=== PATIENT | male | born 1945 | race Caucasian/White ===

== ENCOUNTER 2020-01-27 22:43 | Inpatient (IN) | payer OTHER ==
[~2020-01-27] VITALS: Ht 152.4 cm; Wt 58.0 kg
--- NOTE | ~2020-01-27 | EEG ---
[facility] [place] [address] ELECTROENCEPHALOGRAM Name: SPENCER GALLOWAY Room #: 250-P ADM IN M.R.#: [id number] Admission: 01/28/20 Attend Phys: Breanne Cortez MD Discharge: Date of : 45 Report #: [id number] THIS REPORT FOR: //name// CC: Breanne Cortez [facility] unknown DATE OF SERVICE: 02/23/2020 INTERPRETATION: This patient is being evaluated for altered mental status. EEG was done by placing the electrode by standard 10/20 system of electrode placement. Both referential and sequential montages were used for recording. Background activity in this patient's EEG is about 6-7 Hz and 30 microvolt. This is a poorly formed background activity. Photic stimulation is unremarkable. IMPRESSION: This is an abnormal EEG because it is disorganized and poorly formed. That is a nonspecific abnormality, which can occur with encephalopathy, effect of psychotropic medication, dementia, etc. Clinical correlation is recommended. By: 17 26 Pedro Rizvi MD /nt
--- NOTE | ~2020-01-27 | EKG ---
[facility] [place] [address] ELECTROCARDIOGRAM REPORT Name: LAVERNESPENCER IRA Room #: 244-P ADM IN M.R.#: [id number] Admission: 01/28/20 Attend Phys: Breanne Cortez MD Discharge: Date of : 45 Report #: [id number] THIS REPORT FOR: cc: FAM - Family physician unknown FAM - Family physician unknown Tonya Castaneda MD ~ THIS REPORT FOR: //name// [facility] Test Date: 2020-01-28 Test Time: 16:52:30 Pat Name: SPENCER GALLOWAY Department: Room: 244 P Gender: M Cement Mason: David SILVA : 1945 Requested By: Celestine Serrano Order Number: [id number] MD: Measurements Intervals [place] Rate: 77 P: 52 OR: 155 QRS: 76 QRSD: 151 T: 26 QT: 454 QTc: 514 Interpretive Statements Sinus rhythm Ventricular bigeminy Right bundle branch block Compared to ECG 01/27/2020 23:15:52 Sinus tachycardia no longer present Left posterior fascicular block no longer present [email or web address] By: 165 165 Epiphany Epiphany, [place] /EPI
--- NOTE | ~2020-01-27 | EKG ---
[facility] [place] [address] ELECTROCARDIOGRAM REPORT Name: LAVERNESPENCER IRA Room #: 244-P ADM IN M.R.#: [id number] Admission: 01/28/20 Attend Phys: Breanne Cortez MD Discharge: Date of : 45 Report #: [id number] THIS REPORT FOR: cc: FAM - Family physician unknown FAM - Family physician unknown Tonya Castaneda MD ~ THIS REPORT FOR: //name// [facility] Test Date: 2020-01-28 Test Time: 21:44:38 Pat Name: SPENCER GALLOWAY Department: Room: 244 Gender: M Organizational Development Director: Jose GRIFFIN RN : 1945 Requested By: Yulisa Good Order Number: [id number] MD: Measurements Intervals [place] Rate: 90 P: [place]: QRS: 76 QRSD: 142 T: 39 QT: 414 QTc: 507 Interpretive Statements Atrial fibrillation Paired ventricular premature complexes IVCD, consider atypical RBBB Compared to ECG 01/28/2020 16:52:30 Sinus rhythm no longer present [email or web address] By: 2144 2144 Epiphany Epiphany, /EPI
--- NOTE | ~2020-01-27 | O ---
[facility] [place] [address] OPERATIVE REPORT Name: SPENCER GALLOWAY Room #: 244-P ADM IN M.R.#: [id number] Admission: 01/28/20 Attend Phys: Breanne Cortez MD Discharge: Date of : 45 Report #: [id number] THIS REPORT FOR: cc: SUNSHINE - Family physician unknown SUNSHINE - Family physician unknown Gonsalo Warren MD ~ CC: Breanne GONSALEZ unknown DATE OF SERVICE: 01/28/2020 PREOPERATIVE DIAGNOSIS: Perforated viscus. POSTOPERATIVE DIAGNOSIS: Perforated duodenal ulcer. PROCEDURE: Exploratory laparotomy with omental patch repair of perforated duodenal ulcer. SURGEON: Gonsalo Warren MD ANESTHESIA: General. ESTIMATED BLOOD LOSS: 20 mL. SPECIMEN: None. DESCRIPTION OF PROCEDURE: After informed consent was obtained, the patient was brought to the operating room and placed supine. SCDs were placed and working, preoperative antibiotics were administered, general anesthesia was induced. The abdomen was prepped and draped in the usual sterile fashion. Hansen catheter was placed and this was prior to prepping. Midline incision was made from the xiphoid to the umbilicus. Fascia was incised and a self-retaining Mundelein retractor was placed. There was immediate garcias of brown fluid. This was emanating from the right upper quadrant. This was all suctioned out. I then irrigated the abdomen with about 7 liters of warm normal saline. I inspected the stomach. The stomach appeared normal. In the proximal duodenum, there was perforation. Perforation measured approximately 1 cm. This was undoubtedly the area of perforation. The greater omentum was grasped and a tongue was made using the LigaSure device. I then closed the duodenal ulcer with approximately 8 interrupted 3-0 silk sutures. The edges did approximate well. I then brought the omentum up to the ulceration. It was laid over the suture repair of the ulcer. I then placed sutures circumferentially around the ulceration through the omentum to perform the omentopexy. A 19-Faroese round drain was placed in the area around this. Again, the abdomen was then irrigated. The fascia was then closed with a running #1 looped PDS. The skin [facility] [address] [place] [address] OPERATIVE REPORT Name: LAVERNESPENCER ROTH Room #: 244-P ADM IN [facility].#: [id number] Admission: 01/28/20 Attend Phys: Breanne Cortez MD Discharge: Date of : 45 Report #: [id number] was closed with jett. Sterile dressings were applied. COMPLICATIONS: None. DISPOSITION: The patient was taken to the ICU in guarded condition. By: 0926 0935 Gonsalo Warren MD /nt
[2020-01-27 22:44] VITALS: BP 133/62
[2020-01-27 23:32] LABS: HEMOGLOBIN 6.6 gm/dL (14.0-18.0); MCHC 31.8 g/dL (28.0-37.0)
[2020-01-27 23:33] LABS: HEMATOCRIT 20.7 % (42.0-52.0); MCV 84.8 fL (80.0-100.0); PLATELET COUNT 697 thou/uL (150-400); RBC 2.44 mil/uL (4.50-6.00); RDW 20.1 % (10.5-14.5); WBC 21.1 thou/uL (4.0-11.0)
[2020-01-27 23:36] LABS: URINE BILIRUBIN NEGATIVE (Negative); URINE BLOOD TRACE (Negative); URINE CLARITY SL CLOUDY; URINE COLOR YELLOW; URINE GLUCOSE-RANDOM* TRACE (Negative); URINE KETONES NEGATIVE (Negative); URINE LEUKOCYTES-REFLEX NEGATIVE (Negative); URINE NITRITE-REFLEX NEGATIVE (Negative); URINE PROTEIN (DIPSTICK) 1+ (Negative)
[2020-01-27 23:36] LABS: BE(vivo) -0.6 mmol/L (-2 to +3); PCO2 28.1 mmHg (35.0-45.0); PO2 60.7 mmHg (80.0-100.0); pH 7.511 (7.360-7.450); sO2 93.8 % (92.0-98.0)
[2020-01-27 23:39] LABS: ANION GAP 14 mmol/L (7-16); BUN 44 mg/dL (7-18); CHLORIDE 96 mmol/L (98-107); CO2 22 mmol/L (21-32); CREATININE 1.3 mg/dL (0.7-1.3); GLUCOSE 195 mg/dL (74-106); POTASSIUM 4.6 mmol/L (3.5-5.1); SODIUM 132 mmol/L (136-145)
[2020-01-27 23:44] LABS: APTT 32.4 Seconds (24.5-32.8); INR 1.1; PROTIME 11.3 Seconds (9.3-11.4)
[2020-01-27 23:48] LABS: BACTERIA-REFLEX 1-9 Few /HPF (None Seen); COARSE GRANULAR CASTS 0-3 Few /LPF (None Seen); CRYSTALS None Seen /LPF (None Seen); FINE GRANULAR CASTS 0-3 Few /LPF (None Seen); HYALINE CASTS 4-10 Moderate /LPF (None Seen); MUCUS 4-6 Moderate strn/LPF (None Seen); SQUAMOUS 4-10 Moderate /LPF (0-3); URINE RBC 3-10 Few /HPF (0-2); URINE WBC-REFLEX 0-5 Rare /HPF (0-5)
[2020-01-27 23:49] LABS: ALBUMIN 1.7 g/dL (3.4-5.0); DIRECT BILIRUBIN 0.1 mg/dL (<0.1-0.2); LIPASE 453 U/L (73-393); SGOT 43 U/L (15-37); SGPT 23 U/L (30-65); TOTAL BILIRUBIN 0.7 mg/dL (0.2-1.0); TOTAL PROTEIN 6.2 g/dL (6.4-8.2); TROPONIN-I <0.06 ng/mL (<0.06)
[2020-01-28] VITALS (47 sets, daily range): BP systolic 75–173; BP diastolic 33–90
[2020-01-28 01:46] LABS: ABSOLUTE NEUTROPHILS 17.9 thou/uL (1.4-8.2); ANISOCYTOSIS 2+; NUCLEATED RBCS 5 /100WBC; POIKILOCYTOSIS 1+
[2020-01-28 01:47] LABS: POLYCHROMASIA 1+
[2020-01-28 05:19] LABS: BE(vivo) -7.3 mmol/L (-2 to +3); PCO2 49.1 mmHg (35.0-45.0); PO2 242.2 mmHg (80.0-100.0); sO2 99.4 % (92.0-98.0)
[2020-01-28 05:21] LABS: pH 7.228 (7.360-7.450)
[2020-01-28 06:05] LABS: HEMATOCRIT 25.2 % (42.0-52.0); HEMOGLOBIN 8.1 gm/dL (14.0-18.0); MCHC 32.2 g/dL (28.0-37.0); RBC 2.9 mil/uL (4.50-6.00); RDW 19.4 % (10.5-14.5); WBC 22.9 thou/uL (4.0-11.0)
[2020-01-28 06:23] LABS: % SATURATION 6 % (20-39); IRON 12 ug/dL (65-175); TIBC 189 ug/dL (250-450)
[2020-01-28 06:24] LABS: CHOLESTEROL 67 mg/dL (<200); HDL CHOLESTEROL 14 mg/dL (>40); LDL CHOLESTEROL 33 mg/dL (<100); TC:HDL 4.8 Ratio (Not establshd); TRIGLYCERIDE 102 mg/dL (<150); VLDL 20 mg/dL (<40)
[2020-01-28 06:28] LABS: ALBUMIN 1.4 g/dL (3.4-5.0); CALCIUM 6.5 mg/dL (8.5-10.1); TOTAL BILIRUBIN 0.6 mg/dL (0.2-1.0); TOTAL PROTEIN 5.1 g/dL (6.4-8.2)
[2020-01-28 06:44] LABS: POTASSIUM 3.3 mmol/L (3.5-5.1)
[2020-01-28 06:46] LABS: FOLIC ACID 6.4 ng/mL (8.6-58.9); TSH 2.637 uIU/mL (0.358-3.740)
--- NOTE | 2020-01-28 07:45 | EKG ---
[facility] Adrianna Pat[address] [facility] [place] [address] ELECTROCARDIOGRAM REPORT Name: LAVERNESPENCER ROTH Room #: 244-P ADM IN M.R.#: [id number] Admission: 01/28/20 Attend Phys: Breanne Cortez MD Discharge: Date of : 45 Report #: [id number] THIS REPORT FOR: cc: FAM - Family physician unknown FAM - Family physician unknown Senthil Espinosa MD [facility] ~ THIS REPORT FOR: //name// [facility] ED Test Date: 2020-01-27 Test Time: 23:15:52 Pat Name: SPENCER GALLOWAY Department: Room: [facility] Gender: M Dental Treatment Coordinator: ASHLEY : 1945 Requested By: Elliott Mejia Order Number: [id number] MD: Senthil Espinosa Measurements Intervals [place] Rate: 106 P: 74 MD: 135 QRS: 95 QRSD: 156 T: 22 QT: 407 QTc: 541 Interpretive Statements Sinus tachycardia Multiform ventricular premature complexes RBBB and LPFB Baseline wander in lead(s) I,III,aVL No previous ECG available for comparison Electronically Signed On 01-28-2020 7:44:48 CDT by Senthil Espinosa [email or web address] <ELECTRONICALLY SIGNED> By: Senthil Espinosa MD, [facility] 01/28/20 0744 2315 2315 Senthil Espinosa MD, [facility] /EPI
--- NOTE | 2020-01-28 12:25 | NUR ---
P.T. EVAL DEFERRED ORDER WAS RECEIVED PRIOR TO SURGERY AND INTUBATION. REQUEST NEW POST OP P.T. ORDER ONCE PT IS MEDICALLY STABLE AND ABLE TO PARTICIPARE IN THERAPEUTIC ACTIVITIES.
[2020-01-28 13:12] LABS: HEMATOCRIT 22.7 % (42.0-52.0); HEMOGLOBIN 7.4 gm/dL (14.0-18.0)
--- NOTE | 2020-01-28 14:24 | NUR ---
chart review. am rounds today. unable to visit with him rt intubation. noted per chart he lives alone, had wt loss in past. GI consulted. will cont following as needed for dc needs.
[2020-01-28 17:08] LABS: BE(vivo) -10.2 mmol/L (-2 to +3); HCO3 14.9 mmol/L (22.0-26.0); PCO2 29.7 mmHg (35.0-45.0); PO2 109.7 mmHg (80.0-100.0); pH 7.318 (7.360-7.450); sO2 97.7 % (92.0-98.0)
[2020-01-28 17:22] LABS: ANION GAP 14 mmol/L (7-16); BUN 29 mg/dL (7-18); CHLORIDE 112 mmol/L (98-107); CO2 16 mmol/L (21-32); CREATININE 0.8 mg/dL (0.7-1.3); GLUCOSE 133 mg/dL (74-106); MAGNESIUM 1.6 mg/dL (1.8-2.4); POTASSIUM 3.6 mmol/L (3.5-5.1); SODIUM 142 mmol/L (136-145); TROPONIN-I <0.06 ng/mL (<0.06)
[2020-01-28 17:24] LABS: CALCIUM 5.9 mg/dL (8.5-10.1)
[2020-01-28 20:41] LABS: HEMATOCRIT 20.7 % (42.0-52.0); HEMOGLOBIN 6.7 gm/dL (14.0-18.0)
--- NOTE | 2020-01-28 20:44 | NUR ---
ASSUMED CARE AT 0700. SON VISITED IN THE MORNING AND HE AND THE PATIENT WERE UPDATED AND EDUCATED ON THE PLAN OF CARE AND PATIENT CONDITION. ADEQUATE UOP. NO BM. RIGHT RADIAL ARTERIAL LINE DC'D DUE TO CYANOSIS IN FIRST AND SECOND FINGERS ON RIGHT HAND. HEMOSTASIS OBTAINED. PRESSURE DRESSING APPLIED. SEPSIS PROTOCOL INITIATED. ELECTROLYTES REPLACED PER [facility] PROTOCOL. CARDIOLOGY CONSULTED DUE TO BRADYCARDIA. LEVOPHED, VASOPRESSIN, DOPAMINE TITRATED TO ACHIEVE A MAP>60. TEMPERATURE MAX OF 100.4. VENTILATOR SETTINGS UNCHANGED. PATIENT HAD PALPABLE ULNAR PULSE THROUGHOUT THE DAY ON THE RIGHT SIDE. IRASEMA DRAIN IN PLACE W/SEROSANGUINEOUS DRAINAGE. FIRM ABDOMEN WITH HYPOACTIVE BS. EKG OBTAINED WHICH SHOWED BUNDLE BRANCH BLOCK AND VENTRICULAR BIGEMINY. SURGICAL DRESSING FROM [employer], DRY, INTACT. PATIENT SLOWLY PROGRESSING TOWARDS THE PLAN OF CARE.
[2020-01-28 20:48] LABS: POTASSIUM 3.7 mmol/L (3.5-5.1)
--- NOTE | 2020-01-28 23:59 | NUR ---
ASSUMED CARE OF PATIENT AT 1900. PATIENT CALM, GRIMACES IN PAIN. HEART RYHTHM EXTREMELY IRREGULAR, MOTORIZED SQUAD SERGEANT NOTIFIED. EKG OBTAINED. IN A FIB WITH RATES IN THE 70'S. PATIENT ALSO FEBRILE, ORDER OBTAINED FOR TYLENOL. GIVEN WITH GOOD RESULTS. HEMOGLOBIN RESULTS CALLED TO MOTORIZED SQUAD SERGEANT, ORDER OBTAINED FOR 1 UNIT OF PRBC. INFUSING AT THIS TIME. PATIENTS SON CALLED, UPDATED ON PLAN OF CARE. CONFIRMED THAT PATIENT HAS NOT SEEN A DR SINCE THE . HE WAS DIAGNOSED WITH STOMACH ULCERS THEN. STATES PATIENT TAKES ASPIRIN AND TUMS FOR HEART BURN. BP GTT TITRATED CHARTED. WILL RECHECK LABS IN AM. WORKING TOWARDS POC GOALS.
[2020-01-29] VITALS (77 sets, daily range): BP systolic 85–190; BP diastolic 35–83
[2020-01-29 01:06] LABS: GLYCOHEMOGLOBIN (HGB A1C) 5.6 % (4.8-5.6)
[2020-01-29 02:25] LABS: HEMATOCRIT 26.7 % (42.0-52.0); HEMOGLOBIN 8.4 gm/dL (14.0-18.0); MCH 27.8 pg (26.0-34.0); MCHC 31.6 g/dL (28.0-37.0); MCV 88.1 fL (80.0-100.0); RBC 3.03 mil/uL (4.50-6.00); RDW 18.9 % (10.5-14.5); WBC 28.5 thou/uL (4.0-11.0)
[2020-01-29 02:33] LABS: ALBUMIN 1.2 g/dL (3.4-5.0); CALCIUM 6.5 mg/dL (8.5-10.1); POTASSIUM 3.7 mmol/L (3.5-5.1); TOTAL BILIRUBIN 0.4 mg/dL (0.2-1.0); TOTAL PROTEIN 5.5 g/dL (6.4-8.2)
[2020-01-29 05:13] LABS: BE(vivo) -10.1 mmol/L (-2 to +3); HCO3 14.8 mmol/L (22.0-26.0); PCO2 29.4 mmHg (35.0-45.0); PO2 122.2 mmHg (80.0-100.0); pH 7.321 (7.360-7.450); sO2 98.2 % (92.0-98.0)
--- NOTE | 2020-01-29 08:49 | NUR ---
ASSUMED CARE AT 0700, ASSESSMENT AND VITAL SIGNS COMPLETED PER ICU PROTOCOL. RN WILL CONINTUE TO MONITOR.
[2020-01-30] VITALS (49 sets, daily range): BP systolic 90–134; BP diastolic 46–74
--- NOTE | 2020-01-30 02:38 | NUR ---
ASSUMED CARE OF PATIENT AT 1900. WEANED OFF DOPAMINE. HEART RATE CONTINUES TO FLUCTUATE INCONSISTENTLY, DROPPING TO THE LOW 40'S THEN REBOUNDING TO THE 70'S AND 80'S. BP REMAINS STABLE. LEVO STILL INFUSING PER FLOW SHEET. WORKING TOWARDS POC GOALS.
[2020-01-30 03:44] LABS: HEMATOCRIT 22.7 % (42.0-52.0); HEMOGLOBIN 7.2 gm/dL (14.0-18.0); MCHC 31.8 g/dL (28.0-37.0); MCV 88.3 fL (80.0-100.0); RBC 2.57 mil/uL (4.50-6.00); RDW 20.1 % (10.5-14.5); WBC 19.7 thou/uL (4.0-11.0)
[2020-01-30 03:47] LABS: CALCIUM 6.7 mg/dL (8.5-10.1); CREATININE 0.8 mg/dL (0.7-1.3); POTASSIUM 4.2 mmol/L (3.5-5.1)
--- NOTE | 2020-01-30 07:51 | HC ---
[facility] [place] [address] CONSULTATION Name: SPENCER GALLOWAY Room #: 244-P ADM IN M.R.#: [id number] Admission: 01/28/20 Attend Phys: Breanne Cortez MD Discharge: Date of : 45 Report #: [id number] THIS REPORT FOR: cc: SUNSHINE - Family physician unknown FAM - Family physician unknown Reed Reid MD ~ CC: Breanne GONSALEZ unknown DATE OF SERVICE: 01/29/2020 CARDIOLOGY CONSULTATION INDICATION: Bradycardia. HISTORY OF PRESENT ILLNESS: This 75-year-old gentleman with apparent history of COPD, who presented with several weeks duration of progressive weakness and more recently with abdominal pain. He also had nausea and dyspnea. Initial evaluation in the ER revealed a perforated duodenal ulcer and was taken emergently to the OR. He underwent exploratory laparotomy with patch repair of a perforated duodenal ulcer. He was transferred to the ICU with progressive hypotension secondary to septic shock. He was placed on Levophed and vasopressin. During his transition, he was noted to be bradycardic with heart rates in the 30s to 40 beats per minute range. Review of the telemetry strips revealed initial presentation of probable ventricular bigeminy with low heart rates. The patient was started on dopamine with improvement in his heart rate. Presently, intubated and sedated with a decrease in his pressor support. PAST MEDICAL HISTORY: Unknown. He has not seen a physician in many years ALLERGIES: Unknown. MEDICATIONS: None. SOCIAL HISTORY: Apparently nonsmoker. FAMILY HISTORY: Unobtainable. REVIEW OF SYSTEMS: Unobtainable. PHYSICAL EXAMINATION: VITAL SIGNS: Blood pressure is 130/60, heart rate is 70 beats per minute. GENERAL APPEARANCE: This is an elderly appearing male, intubated and sedated. HEENT: Normocephalic. NECK: Supple. LUNGS: Clear to auscultation. [facility] [address] [place] [address] CONSULTATION Name: HERMINIAMARIA LUISASPENCER IRA Room #: 244-P [facility] IN [facility]#: [id number] Admission: 01/28/20 Attend Phys: Breanne Cortez MD Discharge: Date of : 45 Report #: [id number] CARDIAC: Regular rate and rhythm, S1, S2 positive. ABDOMEN: Soft. Drains in place. EXTREMITIES: No edema, no cyanosis. ECG reveals sinus rhythm with bigeminy, low voltage, right bundle branch block pattern. LABORATORY VALUES: White count is 28.5, hemoglobin is 8.4, creatinine is 1.0. Initial troponin is negative. ASSESSMENT AND PLAN: 1. Bradycardia, attributed to sepsis/peritonitis. Improved with dopamine, we will attempt to wean off. 2. Premature ventricular contractions/ventricular bigeminy, will need an ischemic evaluation once his clinical condition improves. Await echo findings. 2. Septic shock/peritonitis, continue with antibiotics and fluids. His hemodynamics appears to have stabilized as vasopressin was discontinued and he is on the lower dose of Levophed. Check cultures. 3. Chronic obstructive pulmonary disease/vent, as per Pulmonary. <ELECTRONICALLY SIGNED> By: Reed Reid MD 01/30/20 0751 0920 1137 Reed Reid MD /nt
--- NOTE | 2020-01-30 10:00 | NUR ---
ASSUMED CARE AT 0700, ASSESSMENT AND VITAL SIGNS COMPLETED PER ICU PROTOCOL. DR. GONZALES ROUNDED THIS AM, PLAN OF CARE DISCUSSED. RN WILL CONTINUE TO MONITOR.
[2020-01-30 11:46] LABS: BE(vivo) -11.4 mmol/L (-2 to +3); HCO3 13.1 mmol/L (22.0-26.0); PO2 104.9 mmHg (80.0-100.0); sO2 97.6 % (92.0-98.0)
[2020-01-30 11:47] LABS: PCO2 24.9 mmHg (35.0-45.0)
[2020-01-31] VITALS (49 sets, daily range): BP systolic 84–121; BP diastolic 39–75
[2020-01-31 04:49] LABS: HEMATOCRIT 23.7 % (42.0-52.0); HEMOGLOBIN 7.2 gm/dL (14.0-18.0); MCH 27.1 pg (26.0-34.0); MCHC 30.6 g/dL (28.0-37.0); MCV 88.8 fL (80.0-100.0); RBC 2.67 mil/uL (4.50-6.00); RDW 20.7 % (10.5-14.5); WBC 18.4 thou/uL (4.0-11.0)
[2020-01-31 04:56] LABS: CALCIUM 6.9 mg/dL (8.5-10.1); CREATININE 0.7 mg/dL (0.7-1.3); POTASSIUM 4.4 mmol/L (3.5-5.1)
--- NOTE | 2020-01-31 10:41 | 2DMMODE ---
[facility] [address] [place] [address] 2 D/M-MODE ECHOCARDIOGRAM Name: SPENCER GALLOWAY Room #: 244-P ADM IN M.R.#: [id number] Admission: 01/28/20 Attend Phys: Breanne Cortez MD Discharge: Date of : 45 Report #: [id number] THIS REPORT FOR: cc: FAM - Family physician unknown FAM - Family physician unknown Reed Reid MD ~ APPROVED REPORT Study performed: 01/31/2020 08:18:01 EXAM: Comprehensive 2D, Doppler, and color-flow Echocardiogram Patient Location: ICU Room #: [facility] Status: routine BSA: 1.63 HR: 57 bpm BP: 106/62 mmHg Other Information Study Quality: Technically Difficult Technically limited study due to lung disease, patient on ventilator. Indications COPD PVCs 2D Dimensions RVDd: 34.13 mm IVSd: 9.46 (7-11mm) LVOT Diam: 20.04 (18-24mm) LVDd: 46.38 mm PWd: 10.68 (7-11mm) LVDs: 33.55 (25-40mm) Aortic Root: 32.85 mm IVC: 21.00 mm Volumes Left Atrial Volume (Systole) Single Plane 4CH: 26.75 mL Single Plane 2CH: 31.30 mL LA ESV Index: 21.00 mL/m2 Aortic Valve AoV Peak Eagle.: 1.62 m/s AO Peak Gr.: 10.43 mmHg LVOT Max P.45 mmHg LVOT Max V: 0.78 m/s [facility] [address] [place] [address] 2 D/M-MODE ECHOCARDIOGRAM Name: SPENCER GALLOWAY Room #: 244-P ADM IN M.R.#: [id number] Admission: 01/28/20 Attend Phys: Wai Frias Discharge: Date of : 45 Report #: [id number] COLIN Vmax: 1.53 cm2 Mitral Valve E/A Ratio: 0.9 MV Decel. Time: 199.25 ms MV E Max Eagle.: 0.70 m/s MV A Eagle.: 0.77 m/s MV PHT: 57.78 ms IVRT: 114.19 ms Pulmonary Valve PV Peak Eagle.: 0.99 m/s PV Peak Gr.: 3.95 mmHg Tricuspid Valve RAP Estimate: 10.00 mmHg Left Ventricle The left ventricle is normal size. There is normal left ventricular wall thickness. The left ventricular systolic function is low-normal. LVEF is 50-55%. Transmitral Doppler flow pattern suggests mild impaired LV relaxation. Right Ventricle The right ventricle is normal size. The right ventricular systolic function is normal. Atria The left atrium size is normal. The right atrium size is normal. Aortic Valve Mild aortic valve sclerosis. Trace aortic regurgitation. There is no aortic valvular stenosis. Mitral Valve Mild mitral annular calcification. There is no mitral valve regurgitation noted. No evidence of mitral valve stenosis. Tricuspid Valve The tricuspid valve is normal in structure. Trace tricuspid regurgitation. Unable to assess PA pressure. Pulmonic Valve Pulmonic valve is grossly normal in structure. There is no pulmonic valvular regurgitation. [facility] [address] [place] [address] 2 D/M-MODE ECHOCARDIOGRAM Name: SPENCER GALLOWAY Room #: 244-P [facility] IN [facility].#: [id number] Admission: 01/28/20 Attend Phys: Wai Frias Discharge: Date of : 45 Report #: [id number] Great Vessels The aortic root is normal in size. IVC is upper limits of normal in size and collapses <50% with inspiration. Pericardium There is no pericardial effusion. <Conclusion> The left ventricle is normal size. There is normal left ventricular wall thickness. The left ventricular systolic function is low-normal. The right ventricle is normal size. The left atrium size is normal. Mild aortic valve sclerosis. Mild mitral annular calcification. Trace tricuspid regurgitation. <ELECTRONICALLY SIGNED> By: Reed Reid MD 01/31/20 1040 1040 1040 Reed Reid MD /INF
[2020-01-31 11:52] LABS: URINE CHLORIDE-RANDOM* 52 mmol/L; URINE SODIUM-RANDOM* 6 mmol/L
[2020-01-31 11:53] LABS: URINE CREATININE-RANDOM* <13 mg/dL
--- NOTE | 2020-01-31 13:02 | NUR ---
1010 CPAP TRIAL INTIATED. PROPOFOL TURNED OFF 15 MIN PRIOR TO CPAP TRIAL. PT TOLERATING WELL. AT 1045 DR CASE ROUNDED AND STATES THAT DUE TO METABOLIC ACIDOSIS HE DOES NOT WANT TO EXTUBATE PT TODAY AND REQUESTS TO RETURN TO PRIOR AC VENT SETTINGS AND RESTART PROPOFOL. URINE STUDIES SENT ORDERED. RT ATTEMPTED TO DRAW ABG'S ORDERED BUT UNSUCESSFUL AFTER MULTIPLE STICKS. VERY WEAK PULSES. 0930 LEVOPHED WEANED OFF. MAP REMAINS >65. WILL CONTINUE TO MONITOR PATIENT.
[2020-01-31 14:04] LABS: BE(vivo) -10.3 mmol/L (-2 to +3); HCO3 13.5 mmol/L (22.0-26.0); PO2 145.7 mmHg (80.0-100.0); sO2 98.9 % (92.0-98.0)
[2020-01-31 14:05] LABS: PCO2 22.8 mmHg (35.0-45.0)
--- NOTE | 2020-01-31 14:58 | NUR ---
chart review, unable to visit with carrie castillo preserving ppe, on vent in icu. weaning trials. tube feed for nutritional support. patsy spoke with son jerica who wanted cm to pass on that he will be here around 9ish to visit and he is praying for him. cm passed on information to beside nurse.
[2020-02-01] VITALS (49 sets, daily range): BP systolic 80–132; BP diastolic 45–81
[2020-02-01 03:48] LABS: HEMATOCRIT 22.9 % (42.0-52.0); HEMOGLOBIN 7.2 gm/dL (14.0-18.0); MCHC 31.4 g/dL (28.0-37.0); RBC 2.58 mil/uL (4.50-6.00); RDW 20.8 % (10.5-14.5); WBC 17.7 thou/uL (4.0-11.0)
[2020-02-01 04:06] LABS: ALBUMIN 0.8 g/dL (3.4-5.0); CALCIUM 6.6 mg/dL (8.5-10.1); CREATININE 0.9 mg/dL (0.7-1.3); MAGNESIUM 1.7 mg/dL (1.8-2.4); PHOSPHORUS 1.8 mg/dL (2.5-4.9); POTASSIUM 4.5 mmol/L (3.5-5.1); TOTAL BILIRUBIN 0.3 mg/dL (0.2-1.0); TOTAL PROTEIN 5.1 g/dL (6.4-8.2)
--- NOTE | 2020-02-01 06:04 | NUR ---
ASSUMED CARE OF PATIENT AT 1900. VSS, AFEBRILE. RESTED THROUGHT THE NIGHT. EXTREMELY EDEMATOUS THROUGHOUT BODY, SIGNNIFICANT WEIGHT GAIN CHARTED. ELECTROLYTES REPLACED PER PROTOCOL. SON CALLED, THIS RN UPDATED. VERBALIZED UNDERSTANDING. WORKING TOWARDS POC GOALS.
[2020-02-01 06:05] LABS: BE(vivo) -7.9 mmol/L (-2 to +3); HCO3 15.6 mmol/L (22.0-26.0); PCO2 26.4 mmHg (35.0-45.0); PO2 129.2 mmHg (80.0-100.0); pH 7.389 (7.360-7.450); sO2 98.6 % (92.0-98.0)
--- NOTE | 2020-02-01 11:27 | NUR ---
1100 - PATIENT'S SON VISITED THE PATIENT AND HE AND THE PATIENT WERE UPDATED AND EDUCATED ON THE PATIENT'S CONDITION AND PLAN OF CARE.
--- NOTE | 2020-02-01 19:16 | NUR ---
ASSUMED CARE AT 0700. PATIENT STARTED ON LEVOPHED. AFEBRILE. NO BM. ADEQUATE UOP. VENTILATOR SETTINGS UNCHANGED. FENTANYL AND PROPOFOL GTT IN PLACE. TPN STARTED WHICH PATIENT TOLERATED WELL. IRASEMA DRAIN IN PLACE WITH NO OUTPUT TODAY. NG IN PLACE TO LIS.
[2020-02-02] VITALS (18 sets, daily range): BP systolic 93–133; BP diastolic 51–88
--- NOTE | 2020-02-02 04:24 | NUR ---
PATIENT TURNING HEAD AND MOVING BOTH HANDS DURING SEDATION VACATION.AFEBRILE, BELLY FIRM, NG TO LIS.MAC IN PLACE AND PATENT, FMS IN WORKING ORDERS AND FREE FORM KINKS. BLADDER SCAN DONE D/T FIRMNESS. 309 ML SCANNED, IRRIGATED WITH 60ML NS AND FLUSHED WITH NO DIFFICULTY. 500ML URINE OUT PUT RECORDED OVER NIGHT
--- NOTE | 2020-02-02 06:26 | NUR ---
PT SLEPT WELL. DENIES PAIN OR DISCOMFORT. VSS, AFIBRILE. NEW 20 GAUGE PIV PLACED DANA. D10 @50ML/HR INFUSING. 1/2 AMP D50%W GIVEN X1 TO KEEP BG>70. TYPE AND CROSS DONE THIS AM.
[2020-02-02 06:33] LABS: HEMATOCRIT 22.6 % (42.0-52.0); HEMOGLOBIN 7.3 gm/dL (14.0-18.0); MCH 28.2 pg (26.0-34.0); MCHC 32.2 g/dL (28.0-37.0); MCV 87.6 fL (80.0-100.0); RBC 2.58 mil/uL (4.50-6.00); RDW 21.2 % (10.5-14.5); WBC 17.1 thou/uL (4.0-11.0)
[2020-02-02 06:48] LABS: CALCIUM 6.8 mg/dL (8.5-10.1); CREATININE 0.7 mg/dL (0.7-1.3); MAGNESIUM 1.8 mg/dL (1.8-2.4); PHOSPHORUS 2.5 mg/dL (2.5-4.9); POTASSIUM 4.2 mmol/L (3.5-5.1)
--- NOTE | 2020-02-02 13:02 | NUR ---
0830 SON OLIVIA AT BEDSIDE, UPDATED ON PLAN FOR TODAY, REPORTED PT PROBABLY WOULD NOT BE TRIALED TODAY D/T COPIOUS SECRETIONS, NOT TOLERATING SEDATION VACATIONS, AND STILL IN SEPTIC PROCESS. SON ACKNOWLEDGED UNDERSTANDING SITUATION, ALL QUESTIONS ANSWERED. 1000 DR CASE AT BEDSIDE, PT WILL NOT TRIAL TODAY. 1030 DR FLOWER AT BEDSIDE, NEW ORDERS FOR FLUIDS AND TPN
[2020-02-03] VITALS (64 sets, daily range): BP systolic 79–150; BP diastolic 44–74
--- NOTE | 2020-02-03 03:25 | NUR ---
PT CONTINUES TO REQUIRE RESTRAINTS FOR INABILITY TO UNDERSTAND NEED FOR TREATMENT, ETT, MULTIPLE TUBES AND LINES. CIRCULATION AND SKIN ASSESSED & INTACT. BUE ROM DONE, INCONTINENCE CARE COMPLETED.VSS, TEMP 99.2, LEVO INCREASED TO MAINTAIN MAP>65. SON- OLIVAI CALLED. UPDATED ON PATIENT'S CONDITION/SITUATION, MEDS, AND QUESTIONS ANSWERED. OLIVIA VOICES UNDERSTANDING.
[2020-02-03 04:57] LABS: HEMATOCRIT 22.2 % (42.0-52.0); HEMOGLOBIN 7.1 gm/dL (14.0-18.0); MCH 27.8 pg (26.0-34.0); MCHC 31.9 g/dL (28.0-37.0); MCV 87.4 fL (80.0-100.0); RBC 2.55 mil/uL (4.50-6.00); RDW 21.1 % (10.5-14.5); WBC 16.6 thou/uL (4.0-11.0)
[2020-02-03 05:04] LABS: CALCIUM 6.7 mg/dL (8.5-10.1); CREATININE 0.8 mg/dL (0.7-1.3); MAGNESIUM 1.5 mg/dL (1.8-2.4); PHOSPHORUS 3.2 mg/dL (2.5-4.9)
[2020-02-03 05:15] LABS: POTASSIUM 5.3 mmol/L (3.5-5.1)
--- NOTE | 2020-02-03 06:21 | NUR ---
LARGE AMOUNT CLEAR LIQIUD OOZING FROM PATIENT'S HEMORRIODS.SOAKED PADS CHANGED X4. LOOSE STOOLS X4. ABDOMEN FIRM, NG TO LIS-100ML OUTPUT NOTED OVERNIGHT.NO OUT-PUT FROM IRASEMA DRAIN.
--- NOTE | 2020-02-03 11:45 | NUR ---
ASSUMED CARE @ 0700 02/03/20, PT ASSESSMENTS AND VSS COMPLETE PER ICU PROTOCOL. DR FLOWER @ BEDSIDE @ 1015, UPDATE GIVEN, NO NEW ORDERS AT THIS TIME. DR CASE @ BEDSIDE @ 1050, STATUS OVERNIGHT GIVEN BY RN, NO NEW ORDERS RECEIEVED AT THIS TIME. BROOKLYN BAKER AT THE BEDSIDE @ 1140.
--- NOTE | 2020-02-03 21:00 | NUR ---
SV FOR 15 MINUTES, PATIENT DOES NOT FOLLOW COMMANDS, OPENS EYES BUT DOES NOT APPEAR TO TRACK, MOVES HEAD BACK AND FORTH CONTINUOUSLY UNTIL SEDATION TURNED BACK ON
[2020-02-04] VITALS (94 sets, daily range): BP systolic 79–152; BP diastolic 40–87
[2020-02-04 05:31] LABS: HEMATOCRIT 22.4 % (42.0-52.0); HEMOGLOBIN 7.3 gm/dL (14.0-18.0); MCH 28.2 pg (26.0-34.0); MCHC 32.4 g/dL (28.0-37.0); RBC 2.58 mil/uL (4.50-6.00); RDW 20.9 % (10.5-14.5); WBC 17.7 thou/uL (4.0-11.0)
[2020-02-04 05:49] LABS: CALCIUM 6.8 mg/dL (8.5-10.1); CREATININE 0.7 mg/dL (0.7-1.3); MAGNESIUM 1.4 mg/dL (1.8-2.4); POTASSIUM 3.3 mmol/L (3.5-5.1)
--- NOTE | 2020-02-04 07:52 | NUR ---
ASSUMED CARE FROM NIGHT NURSE. KCL INFUSING FOR SERUM K OF 3.3, MAG SULFATE HUNG FOR SERUM MAG OF 1.4.
--- NOTE | 2020-02-04 09:17 | NUR ---
If GI tract ready to use, consider vital AF 1.2 at 15ml/hr trophic feeds. Goal would be 50ml/hr if off tpn and no further electrolyte abnormalities.
--- NOTE | 2020-02-04 09:43 | NUR ---
30 MIN SEDATION VACATION. MOVES HEAD FROM SIDE TO SIDE, WILL NOT FOLLOW ANY COMMANDS. HEART RATE INITALLY 70'S INCREASED TO 97. BP ELEVATED TO 152/87 RESP RATE IN THE UPPER 20'S AND SAT WAS 98% FROM 100%.
[2020-02-04 11:43] LABS: MAGNESIUM 1.7 mg/dL (1.8-2.4); POTASSIUM 3.2 mmol/L (3.5-5.1)
--- NOTE | 2020-02-04 13:36 | NUR ---
PATIENT IS RESTING QUIETLY, SON IN AT 1030 THIS AM, UPDATED ON HIS DAD'S STATUS AND POC. PATIENT IS DIURSING 1000 ML AFTER LASIX GIVEN. REPEAT POTASSIUM AND MAG LEVELS DRAWN AFTER BOLUSES, DRIPS HUNG LEVELS REMAIN LOW. PROPOFOL AND LEVOPHED TITRATED TO KEEP MAP GREATER THAN 65 MMHG AFTER LASIX. WILL CONTINUE TO MONITOR.
--- NOTE | 2020-02-04 15:18 | NUR ---
chart review. remains intubated and tpn for nutritional support. spoke with son jerica, no question or concerns voice. will cont following as needed for dc needs.
--- NOTE | 2020-02-04 20:30 | NUR ---
SEDATION VACATION FOR 10 MINUTES, PATIENT DOES NOT FOLLOW COMMANDS, DOES NOT BLINK WHEN STIMULI INTRODUCED TO EYES, WITHDRAWS TO PAIN, MOVES HEAD BACK AND FORTH WHILE SEDATION OFF. DOES GRIMACE WITH ORAL CARES WITH SEDATION INFUSING
[2020-02-05] VITALS (93 sets, daily range): BP systolic 82–156; BP diastolic 47–79
[2020-02-05 09:09] LABS: CALCIUM 7.2 mg/dL (8.5-10.1); CREATININE 0.6 mg/dL (0.7-1.3); MAGNESIUM 1.7 mg/dL (1.8-2.4); PHOSPHORUS 2.8 mg/dL (2.5-4.9); POTASSIUM 3.4 mmol/L (3.5-5.1)
--- NOTE | 2020-02-05 09:43 | NUR ---
ASSUMED CARE AT 0700, ASSESSMENT AND VITAL SIGNS COMPLETED PER ICU PROTOCOL. DR. FLOWER ROUNDED THIS AM, PLAN OF CARE DISCUSSED, RN WILL CONTINUE TO MONITOR.
--- NOTE | 2020-02-05 19:07 | NUR ---
RECEIVED PATIENT REPORT FROM CORNELIUS HORTA. ASSUMED PATIENT CARE AT THIS TIME.
[2020-02-06] VITALS (83 sets, daily range): BP systolic 91–157; BP diastolic 47–89
[2020-02-06 04:16] LABS: HEMATOCRIT 21.7 % (42.0-52.0); HEMOGLOBIN 7.3 gm/dL (14.0-18.0); MCH 28.8 pg (26.0-34.0); MCHC 33.7 g/dL (28.0-37.0); MCV 85.5 fL (80.0-100.0); RBC 2.54 mil/uL (4.50-6.00); RDW 20.4 % (10.5-14.5); WBC 16.8 thou/uL (4.0-11.0)
[2020-02-06 05:22] LABS: CALCIUM 7.3 mg/dL (8.5-10.1); CREATININE 0.6 mg/dL (0.7-1.3); POTASSIUM 3.2 mmol/L (3.5-5.1)
--- NOTE | 2020-02-06 09:15 | NUR ---
Assumed care at 0700, assessment and vital signs completed per ICU protocol. RN will continue to monitor.
[2020-02-06 09:58] LABS: MAGNESIUM 1.7 mg/dL (1.8-2.4); PHOSPHORUS 3.3 mg/dL (2.5-4.9)
[2020-02-07] VITALS (89 sets, daily range): BP systolic 81–198; BP diastolic 43–103
[2020-02-07 03:04] LABS: HEMOGLOBIN 6.9 gm/dL (14.0-18.0); RBC 2.51 mil/uL (4.50-6.00)
[2020-02-07 03:05] LABS: HEMATOCRIT 21.5 % (42.0-52.0); MCH 27.4 pg (26.0-34.0); MCV 85.7 fL (80.0-100.0); RDW 20.4 % (10.5-14.5); WBC 13.2 thou/uL (4.0-11.0)
[2020-02-07 03:21] LABS: CALCIUM 7.6 mg/dL (8.5-10.1); CREATININE 0.6 mg/dL (0.7-1.3); POTASSIUM 3.2 mmol/L (3.5-5.1)
--- NOTE | 2020-02-07 05:38 | NUR ---
Assessments completed and documented. VSS, TEMP 99.1 oral.Abdomen firm, NG to LIS- 225ML output noted overnoc. No drainage from IRASEMA, No BM. 1300ml urine output. Pt is still on low dose Levo and sedated. Andrea- son called. Was updated on patient's plan of care, situations and meds. Questions answered, he palns to visit pt this AM.
--- NOTE | 2020-02-07 07:56 | NUR ---
Sedation vacation early this morning, pt opens eyes, moving head right to left, moving all ext. but noted to be restless/agitated. Nodding yes to all questions and at risk for dislodging tubings d/t back and forth head movement. Currently sedated. Still on both Propofol and Precedex. Family called- updated on patient's condition, medications, and plan to D/C pt to LTACH. Questions answered and education about LTACHs given. Brother's and daughter voices understanding.
--- NOTE | 2020-02-07 10:00 | NUR ---
SEDATION VACATION PERFORMED FOR 1 HR, NOT TOLERATED. BP UP TO 180'S/100, RR-30, THRASHING HEAD BACK AND FORTH, SPONTANEOUSLY OPENING EYES, NO TRACKING, SPONTANEOUSLY MOVING SHILPA HANDS. TITRATING, RESTARTING SEDATION FOR PT COMFORT. HG 6.9. PRBC STARTED. LARGE AMOUNT URINE OUTPUT, REPLACING POTASSIUM PER ELECTROLYTE PROTOCOL.
[2020-02-07 10:35] LABS: BE(vivo) 2.6 mmol/L (-2 to +3); HCO3 25.4 mmol/L (22.0-26.0); PCO2 32.3 mmHg (35.0-45.0); PO2 84.4 mmHg (80.0-100.0); pH 7.513 (7.360-7.450); sO2 97.3 % (92.0-98.0)
--- NOTE | 2020-02-07 14:09 | NUR ---
chart review, pt remains on vent with tpn for nutritional support. he from home. cm tried calling son jerica, no answer, left message request a call back. dcp depends on if he gets a trach and peg then LTAC vs if he get extubated then possible acute rehab vs hh depending how he does mobility and if has sig increased weakness.
[2020-02-07 23:27] LABS: CALCIUM 7.5 mg/dL (8.5-10.1); CREATININE 0.6 mg/dL (0.7-1.3); MAGNESIUM 1.7 mg/dL (1.8-2.4); PHOSPHORUS 2.9 mg/dL (2.5-4.9); POTASSIUM 3.4 mmol/L (3.5-5.1)
[2020-02-08] VITALS (76 sets, daily range): BP systolic 96–156; BP diastolic 53–87
--- NOTE | 2020-02-08 06:42 | NUR ---
ASSESSMENTS COMPLETED. VSS ON LOW DOSE LEVOPHED, AFEBRILE. RECEIVED 1 UNIT PRBC FOR HGB 6.9. POTASSIUM REPLACED, TPN INCREASED TO 50ML/HR. 250ML OUT FROM NG, ZERO FROM IRASEMA DRAIN. 1450 URINE OUTPUT. NO CHANGE TO VENT SETTINGS
[2020-02-08 12:50] LABS: HEMATOCRIT 25.8 % (42.0-52.0); HEMOGLOBIN 8.3 gm/dL (14.0-18.0); MCH 27.7 pg (26.0-34.0); MCV 86.8 fL (80.0-100.0); RBC 2.98 mil/uL (4.50-6.00); RDW 19.2 % (10.5-14.5); WBC 12.7 thou/uL (4.0-11.0)
[2020-02-08 13:04] LABS: CALCIUM 7.5 mg/dL (8.5-10.1); CREATININE 0.6 mg/dL (0.7-1.3); MAGNESIUM 1.8 mg/dL (1.8-2.4)
[2020-02-08 13:05] LABS: BE(vivo) 3.3 mmol/L (-2 to +3); HCO3 26.9 mmol/L (22.0-26.0); PCO2 36.9 mmHg (35.0-45.0); PO2 74.1 mmHg (80.0-100.0); sO2 95.9 % (92.0-98.0)
--- NOTE | 2020-02-08 19:45 | NUR ---
CPAP TRIAL FOR 1 HOUR TODAY. STILL NOT FOLLOWING COMMANDS. SON OLIVIA AT PATIENT BEDSIDE TODAY.
[2020-02-09] VITALS (103 sets, daily range): BP systolic 74–171; BP diastolic 40–99
[2020-02-09 06:24] LABS: CALCIUM 7.6 mg/dL (8.5-10.1); CREATININE 0.7 mg/dL (0.7-1.3); MAGNESIUM 1.6 mg/dL (1.8-2.4); PHOSPHORUS 2.9 mg/dL (2.5-4.9); POTASSIUM 3.7 mmol/L (3.5-5.1)
--- NOTE | 2020-02-09 15:33 | NUR ---
FAMILY (DPOA)/ DAUGHTER LIDYA BECERRA AT PATIENT BEDSIDE. 1415.
--- NOTE | 2020-02-09 18:39 | NUR ---
CPAP TRIAL FOR ONE HOUR. TOWARDS ONE HOUR PATIENT TACHYPNEIC, INCREASED HR AND INCRSED SBP. A/C MODE NOT. ATTEMPTED TO WEAN SEDATION. PATIENT DID NOT HANDLE WEANING. NO COMMANDS. OLIVIA (SON) VISITED TODAY.
[2020-02-10] VITALS (59 sets, daily range): BP systolic 67–187; BP diastolic 31–125
--- NOTE | 2020-02-10 04:04 | NUR ---
PT IS STABLE, MOVES HEAD FROM LEFT TO RIGHT AT TIMES, TRIED TO GO UP ON HIS SEDATION SO HE COULD FULLY REST BUT THAT AFTFECTED HIS BP AND MAP WAS BTW 50-55. SO PROPOFOL LEFT AT 30MCG AND PT'S BP IS TOLERATING THIS WELL. PT IS STABLE, WILL EN2SNABHR TO MONITOR PER POC.
[2020-02-10 04:36] LABS: BE(vivo) 0.4 mmol/L (-2 to +3); HCO3 23.3 mmol/L (22.0-26.0); PCO2 31.3 mmHg (35.0-45.0); PO2 108.3 mmHg (80.0-100.0); sO2 98.3 % (92.0-98.0)
[2020-02-10 05:58] LABS: HEMATOCRIT 25.1 % (42.0-52.0); HEMOGLOBIN 8.3 gm/dL (14.0-18.0); MCH 28.1 pg (26.0-34.0); MCHC 32.9 g/dL (28.0-37.0); MCV 85.4 fL (80.0-100.0); RBC 2.94 mil/uL (4.50-6.00); RDW 19.4 % (10.5-14.5); WBC 13.9 thou/uL (4.0-11.0)
[2020-02-10 06:09] LABS: MAGNESIUM 1.7 mg/dL (1.8-2.4); PHOSPHORUS 2.8 mg/dL (2.5-4.9)
[2020-02-10 06:12] LABS: CALCIUM 7.7 mg/dL (8.5-10.1); CREATININE 0.8 mg/dL (0.7-1.3); POTASSIUM 3.6 mmol/L (3.5-5.1); TOTAL BILIRUBIN 0.4 mg/dL (0.2-1.0); TOTAL PROTEIN 6.5 g/dL (6.4-8.2)
[2020-02-10 07:44] LABS: ABSOLUTE NEUTROPHILS 12.6 thou/uL (1.4-8.2)
[2020-02-10 07:45] LABS: ANISOCYTOSIS 2+; PLATELET COUNT 840 thou/uL (150-400); PLATELET ESTIMATE INCREASED
[2020-02-10 07:46] LABS: LARGE PLATELETS OCCASIONAL
[2020-02-10 07:47] LABS: POLYCHROMASIA SLIGHT
[2020-02-10 07:48] LABS: TOXIC GRANULATION SLIGHT
--- NOTE | 2020-02-10 16:44 | NUR ---
ASSUMED CARE OF PT AT 0700, PT IS A GCS OF 9 AND CONT TO NEED VENT WITH PROPOFOL AND FENTANYL FOR MAMAGEMENT. PT HAD A CPAP TRIAL BUT HE FAILED. VSS, HE IS NOTED WITH SLIGHT FEVER. FAMILY CALLED AND WAS UPDATED ON PT CONDITION. PT ALSO NOTED TO GET RESTLESS AT TIMES. HE IS RESTING AT THIS TIME WITH EYES CLOSED.
[2020-02-11] VITALS (53 sets, daily range): BP systolic 73–135; BP diastolic 34–100
--- NOTE | 2020-02-11 01:47 | NUR ---
ASSUMED CARE OF PATIENT AT 1900. HEART RATE IN THE 150'S. TITRATED PROPOFOL AND FENTYNAL TO MAINTAIN BLOOD PRESSURE AND REDUCE PATIENT AGITATION AND TACHYCARDIA. SON CALLED FOR UPDATE, WOULD LIKE TO BE WITH PATIENT WHEN CPAP DONE. WILL PASS INFORMATION ON. NOT PROGRESSING TOWARDS POC GOALS.
[2020-02-11 06:27] LABS: HEMATOCRIT 24.2 % (42.0-52.0); MCH 28.7 pg (26.0-34.0); MCV 87.1 fL (80.0-100.0); RBC 2.78 mil/uL (4.50-6.00); RDW 19.4 % (10.5-14.5); WBC 10.5 thou/uL (4.0-11.0)
[2020-02-11 06:28] LABS: CALCIUM 7.6 mg/dL (8.5-10.1); CREATININE 0.5 mg/dL (0.7-1.3); MAGNESIUM 1.7 mg/dL (1.8-2.4); POTASSIUM 3.5 mmol/L (3.5-5.1)
--- NOTE | 2020-02-11 10:38 | NUR ---
If surgery would like to trial enteral feeds over the weekend recommend vital AF at 15ml/hr
[2020-02-11 14:03] LABS: POTASSIUM 3.8 mmol/L (3.5-5.1)
--- NOTE | 2020-02-11 15:35 | NUR ---
chart review, he remains intubated with nutritional support. wean trails as ordered by MD. patsy spoke with son jerica via phone, active listing during phone call, he asked that he be notified a head of time if his dad going to get trach and peg so he can be here in the waiting room. patsy passed on to bedside nurse.
[2020-02-11 16:48] LABS: APTT 36.9 Seconds (24.5-32.8); INR 1.1; PROTIME 10.9 Seconds (9.3-11.4)
--- NOTE | 2020-02-11 19:47 | NUR ---
PATIENT RESTLESS WHEN RECIEVING BEDSIDE SHIFT REPORT, MOVE HEAD BACK AND FORTH QUICKLY, RR 30, EYES OPEN BUT DOES NOT APPEAR TO FOCUS ON ANY OBJECT. DOES NOT FOLLOW COMMANDS, DOES NOT APPEAR TO COMPREHEND COMMUNICATION, THIS RN ATTEMPTED TO EDUCATE REGARDING SAFETY OF ETT AND MOVING HEAD BACK AND FORTH. CONSIDERED THIS APPROXIMATELY 30 MINUTE PERIOD OF TIME OF REPORT TO ASSESSMENT TO BE PT SEDATION VACATION, ADDITIONAL PRN MEDICATIONS GIVEN AND SEDATION INCREASED TO ALLOW PATIENT TO REST AND PROTECT AIRWAY
--- NOTE | 2020-02-11 20:16 | NUR ---
CALLED DR. CASE, PATIENT BP IS NOT TOLERATING INCREASE IN SEDATION TO KEEP CALM AND RR BELOW 30. ORDER RECIEVED FOR PRECEDEX AND WAS TOLD IF PRECEDEX DOES NOT WORK, INCREASE PROPOFOL AND RESTART LEVO IF NEEDED
[2020-02-12] VITALS (79 sets, daily range): BP systolic 69–137; BP diastolic 36–72
--- NOTE | 2020-02-12 04:43 | NUR ---
LEVO STARTED FOR CONSISTENTLY LOW MAPS LESS THAN 60. HR BECOMING LESS THAN 60 ON PRECEDEX, PROPOFOL INCREASED TO KEEP PATIENT CALM. PATIENT MOVING HEAD BACK AND FORTH SO MUCH THAT THE ANCHORFAST BECAME LOOSE AND REQUIRING CHANGE. NG NEEDING TO BE RETAPED X2 DUE TO PATIENT'S MOVEMENT. SEDATION INCREASED TO PREVENT ANYTHING FROM BEING DISLODGED
[2020-02-12 04:58] LABS: HEMATOCRIT 22.6 % (42.0-52.0); HEMOGLOBIN 7.3 gm/dL (14.0-18.0); MCH 28.1 pg (26.0-34.0); MCHC 32.3 g/dL (28.0-37.0); MCV 87.2 fL (80.0-100.0); RBC 2.59 mil/uL (4.50-6.00); RDW 19.5 % (10.5-14.5); WBC 8.6 thou/uL (4.0-11.0)
[2020-02-12 05:02] LABS: CALCIUM 7.4 mg/dL (8.5-10.1); CREATININE 0.6 mg/dL (0.7-1.3)
--- NOTE | 2020-02-12 22:44 | NUR ---
PATIENT REQUIRING INCREASED SEDATION TO KEEP CALM AFTER SV, LASTING ONLY 10 MINUTES, RR UP TO 30'S, MOVING HEAD BACK AND FORTH. REPORT GIVEN TO MYCHAL CASTANON AND CARE SURRENDERED
[2020-02-13] VITALS (93 sets, daily range): BP systolic 83–134; BP diastolic 45–69
[2020-02-13 12:28] LABS: CALCIUM 7.6 mg/dL (8.5-10.1); CREATININE 0.6 mg/dL (0.7-1.3); POTASSIUM 4.2 mmol/L (3.5-5.1)
--- NOTE | 2020-02-13 15:54 | NUR ---
ASSUMED CARE @ 0700 02/13/20, PT ASSESSMENTS AND VSS COMPLETE PER ICU PROTOCOL. DR CASE AND DR FERRER TO THE BEDSIDE FOR ROUNDS, NO NEW ORDERS RECIEVED. OLIVIA (SON AND DPOA) TO THE BEDSIDE, HE COMMUNICATES TO RN THAT HE WOULD WANT TRACH AND PEG PROCEDURE DONE ON FRIDAY VS FRIDAY, DR FERRER INFORMED.
[2020-02-14] VITALS (58 sets, daily range): BP systolic 78–155; BP diastolic 36–71
[2020-02-14 05:54] LABS: MAGNESIUM 1.8 mg/dL (1.8-2.4); PHOSPHORUS 3.5 mg/dL (2.5-4.9)
[2020-02-14 06:03] LABS: CALCIUM 7.6 mg/dL (8.5-10.1); CREATININE 0.6 mg/dL (0.7-1.3); POTASSIUM 4.3 mmol/L (3.5-5.1)
--- NOTE | 2020-02-14 06:36 | NUR ---
ASSUMED PT CARE AT 1900. VSS. PT DOESNT FOLLOW COMMANDS HIWEVE HE FACIAL GRIIMACES TO PAIN. PT IS STABLE, NO ACUTE CHANGES OVER NOC. WILL CONTINUE TO MONITOR
--- NOTE | 2020-02-14 15:47 | NUR ---
chart review. noted in chart he will possible have trach and peg on friday or friday. called son jerica, left message for son. pt jessica for trach and peg on friday around 1130. cm reminded bedside nurse to notified son jerica of when procedure is set for.
[2020-02-14 16:19] LABS: HEMATOCRIT 24.4 % (42.0-52.0); HEMOGLOBIN 8.3 gm/dL (14.0-18.0); MCH 29.1 pg (26.0-34.0); MCV 85.7 fL (80.0-100.0); RBC 2.84 mil/uL (4.50-6.00); RDW 19.2 % (10.5-14.5); WBC 10.6 thou/uL (4.0-11.0)
--- NOTE | 2020-02-14 18:44 | NUR ---
assumed care of pt at 0700, pt is a gcs of 9-10, he cont to be on a vent and sedatives for vent management. pt has been afibrile and vss. pt resting with eyes closed.
[2020-02-15] VITALS (49 sets, daily range): BP systolic 89–152; BP diastolic 43–75
[2020-02-15 05:22] LABS: HEMATOCRIT 24.6 % (42.0-52.0); HEMOGLOBIN 8.3 gm/dL (14.0-18.0); MCH 29.2 pg (26.0-34.0); MCHC 33.6 g/dL (28.0-37.0); MCV 86.8 fL (80.0-100.0); RBC 2.83 mil/uL (4.50-6.00); RDW 19.6 % (10.5-14.5); WBC 9.3 thou/uL (4.0-11.0)
[2020-02-15 05:46] LABS: CALCIUM 7.6 mg/dL (8.5-10.1); CREATININE 0.7 mg/dL (0.7-1.3); POTASSIUM 4.6 mmol/L (3.5-5.1)
--- NOTE | 2020-02-15 06:00 | NUR ---
REMAINS INTUBATED AND SEDATED WITH PROPOFOL FENTANYL AND PRECEDEX GTTS LEVOPHED GTT AT 4 MCG. BECOMES VERY RESTLESS AT TIMES SHAKING HEAD BACK AND FORTH. ABD INC INTACT WITH TORRES. SCANT AMT OF DRG FROM IRASEMA DRAIN EXCELLENT URINARY OUTPUT. S/C FOR TRACH AND PEG AT 1100 TODAY. CONSENT SIGNED WILL CONT TO MONITOR
--- NOTE | 2020-02-15 10:35 | NUR ---
Nutrition: When ready to start tube feeds post trach, REC Vital AF to reach goal 50 mL/hr and taper TPN to D/C if tube feeds are tolerated.
--- NOTE | 2020-02-15 10:40 | NUR ---
0910- IN.--VW 0945- IN.--VW 1000- IN.--VW 1035-TO O.R. FULLY MONITORED W Letty MATHIS & .--VW
[2020-02-16] VITALS (22 sets, daily range): BP systolic 89–148; BP diastolic 43–70
[2020-02-16 06:09] LABS: HEMATOCRIT 22.8 % (42.0-52.0); HEMOGLOBIN 7.5 gm/dL (14.0-18.0); MCH 28.5 pg (26.0-34.0); MCHC 32.7 g/dL (28.0-37.0); MCV 87.3 fL (80.0-100.0); RBC 2.61 mil/uL (4.50-6.00); RDW 19.8 % (10.5-14.5); WBC 9.9 thou/uL (4.0-11.0)
[2020-02-16 06:30] LABS: CALCIUM 7.9 mg/dL (8.5-10.1); CREATININE 0.6 mg/dL (0.7-1.3); POTASSIUM 4.1 mmol/L (3.5-5.1)
--- NOTE | 2020-02-16 18:27 | NUR ---
patient not progressing towards plan of care. patient is not tolerating sedation being weaned. patient to ct today of abdomen. no calls from family. central line dressing changed.
[2020-02-17] VITALS (30 sets, daily range): BP systolic 83–163; BP diastolic 32–80
[2020-02-17 05:08] LABS: CALCIUM 7.9 mg/dL (8.5-10.1); CREATININE 0.7 mg/dL (0.7-1.3); POTASSIUM 4.1 mmol/L (3.5-5.1)
[2020-02-17 06:13] LABS: RDW 19.8 % (10.5-14.5); WBC 7.8 thou/uL (4.0-11.0)
[2020-02-17 06:21] LABS: HEMOGLOBIN 7.8 gm/dL (14.0-18.0); MCH 28.2 pg (26.0-34.0); MCHC 32.5 g/dL (28.0-37.0); MCV 86.7 fL (80.0-100.0); RBC 2.76 mil/uL (4.50-6.00)
--- NOTE | 2020-02-17 06:36 | NUR ---
PATIENT REMAINS ON THE VENT. PROPOFOL, FENTANYL, PRECEDEX GTT. AFEBRILE. LEVOPHED FOR HYPOTENTESION OTHERWISE VSS. NO BM THIS TOD. RESTRAINTS FOR SAFETY. MAC IN PLACE WITH GOOD U/O. FAMILY UPDATED. REPOSITIONED Q2H. DENIES NEED. WILL KEEP MONITORING.
--- NOTE | 2020-02-17 08:46 | NUR ---
CALL TO VIA VOICEMAIL RE: BETH HORN.--VW
[2020-02-18] VITALS (22 sets, daily range): BP systolic 92–159; BP diastolic 53–73
--- NOTE | 2020-02-18 06:09 | NUR ---
ASSUMED PT CARE AT 1900. VSS. LEVO TITRATED OFF. PT ON PROPOFOL AT 40MCG AND FENTANYL AT 2. PT DOESNT FOLLOW COMMANDS, MOVES HEAD FROM SIDE TO SIDE AND OCASSIONALLY EXTEMITIES NON PUPOSEFULY. PT IS STABLE FOR NOW, AFEBRILE, WILL CONTINUE TO CLOSELY MONITOR
[2020-02-18 06:12] LABS: HEMOGLOBIN 7.7 gm/dL (14.0-18.0); RDW 19.6 % (10.5-14.5)
[2020-02-18 06:13] LABS: HEMATOCRIT 24.2 % (42.0-52.0); MCH 27.3 pg (26.0-34.0); MCHC 31.8 g/dL (28.0-37.0); MCV 85.7 fL (80.0-100.0); RBC 2.83 mil/uL (4.50-6.00); WBC 8.7 thou/uL (4.0-11.0)
[2020-02-18 06:25] LABS: CALCIUM 8.1 mg/dL (8.5-10.1); CREATININE 0.5 mg/dL (0.7-1.3); POTASSIUM 3.9 mmol/L (3.5-5.1)
--- NOTE | 2020-02-18 09:54 | NUR ---
Patient moving around and pulling against restraints. Patient repositioned, oral care done. Patient continues to appear uncomfortable, breathing in the 30's. Increased fentanyl gtt to 50 mcgs per hour. Levophed remains off since 429. SBP 140's.
--- NOTE | 2020-02-18 12:49 | NUR ---
ASSUMED PATIENT AT 0600- PATIENT RESTLESS AND THRASHING HIS HEAD AT THIS TIME. ADDED SALINE TO HIS TTS BIVONA TRACH HE HAD AN AUDIBLE LEAK. RESOLVED LEAK. PATIENT NOT WEANED TODAY HE IS ON LEVOPHED. NO VENTILATOR CHANGES MADE DURING MY SHIFT- CONTINUE WITH VENT CHECKS AND BREATHING TREATMENTS.
--- NOTE | 2020-02-18 14:44 | NUR ---
chart review. cm requested md talk about next level of care when needed for [facility]. cm called silvia jerica. education on [facility], ie [facility] when md ready to transfer. silvia pizano getting ready to go to work and will call cm back. will cont following as needed for dc needs. no anticipated dc over the weekend.
--- NOTE | 2020-02-18 19:50 | NUR ---
Patient stable. Increased sedation to promote comfort. Large output from NGT. Patient is slowly progressing towards goals. See documentation on interventions for assessment details. No family visited today or called.
[2020-02-19] VITALS (33 sets, daily range): BP systolic 74–151; BP diastolic 37–88
[2020-02-19 05:52] LABS: WBC 7.7 thou/uL (4.0-11.0)
[2020-02-19 05:54] LABS: HEMATOCRIT 23.3 % (42.0-52.0); HEMOGLOBIN 7.5 gm/dL (14.0-18.0); MCH 27.5 pg (26.0-34.0); MCHC 32.1 g/dL (28.0-37.0); MCV 85.6 fL (80.0-100.0); RBC 2.72 mil/uL (4.50-6.00); RDW 19.6 % (10.5-14.5)
[2020-02-19 06:07] LABS: CALCIUM 7.9 mg/dL (8.5-10.1); CREATININE 0.6 mg/dL (0.7-1.3); MAGNESIUM 1.7 mg/dL (1.8-2.4); POTASSIUM 3.7 mmol/L (3.5-5.1)
--- NOTE | 2020-02-19 06:28 | NUR ---
Pt was given versed twice through this shift, he becomes SO restless, trashing his head back and forth, he pulls at the restraints and then the sat probe or BP won't read right. The versed is effective at calming him, heart rate drops into the 70's, resp rate is in the upper teens/low 20's. The propofol was titrated, (by 2.5 mcg's), and was not as effective. The jett and IRASEMA drain are still present and likely could be removed, the IRASEMA had no output, it was irrigated with 10 ml's of NS. The NGT had minimal output this shift and is draining clear/white gastric fluids. The bed is in the low/locked position, the siderails are are up x 4 and pt is making minimal progress towards POC goals.
--- NOTE | 2020-02-19 10:43 | NUR ---
0700>>> Bedside shift report received. Care assumed. 0800>>> Assessments done as documented. pt put on sedation vacation. Became restless and tachypneic with nonpurposeful movement. Not following commands. Sedation medication turned on. 1031>>> pt very restless and tachypneic with RR on high 30s. Versed 2mg IVP administered. Will continue to monitor.
[2020-02-19 11:05] LABS: BE(vivo) -0.6 mmol/L (-2 to +3); HCO3 22.6 mmol/L (22.0-26.0); PCO2 31.4 mmHg (35.0-45.0); pH 7.476 (7.360-7.450); sO2 94.9 % (92.0-98.0)
[2020-02-20] VITALS (28 sets, daily range): BP systolic 74–131; BP diastolic 42–77
[2020-02-20 05:09] LABS: BE(vivo) -1.6 mmol/L (-2 to +3); HCO3 21.9 mmol/L (22.0-26.0); PCO2 32.1 mmHg (35.0-45.0); PO2 79.6 mmHg (80.0-100.0); pH 7.452 (7.360-7.450); sO2 96.4 % (92.0-98.0)
[2020-02-20 05:56] LABS: WBC 6.8 thou/uL (4.0-11.0)
[2020-02-20 05:57] LABS: HEMATOCRIT 24.8 % (42.0-52.0); MCH 27.7 pg (26.0-34.0); MCHC 32.4 g/dL (28.0-37.0); MCV 85.4 fL (80.0-100.0); RDW 19.6 % (10.5-14.5)
[2020-02-20 06:00] LABS: PLATELET COUNT 1120 thou/uL (150-400)
--- NOTE | 2020-02-20 06:00 | NUR ---
REMAINS TRACHED AND VENTED FIO2 30 % O2 SAT 99 % RESTLESS AT TIMES FENTANYL AND PROPOFOL BOTH AT 50 MCG FOR SEDATION. UO 450 CC AND 100 CC NTG TUBE DRG THIS SHIFT. BATHED. FOLLOWS NO COMMANDS. WILL CONT TO MONITOR
[2020-02-20 06:30] LABS: ALBUMIN 1.1 g/dL (3.4-5.0); CALCIUM 8.5 mg/dL (8.5-10.1); CREATININE 0.5 mg/dL (0.7-1.3); MAGNESIUM 1.9 mg/dL (1.8-2.4); POTASSIUM 4.2 mmol/L (3.5-5.1); TOTAL BILIRUBIN 0.3 mg/dL (0.2-1.0); TOTAL PROTEIN 6.9 g/dL (6.4-8.2)
[2020-02-20 06:37] LABS: ABSOLUTE NEUTROPHILS 3.7 thou/uL (1.4-8.2)
[2020-02-20 06:38] LABS: ANISOCYTOSIS SLIGHT; HYPOCHROMASIA 1+; PLATELET ESTIMATE MARKEDLY INCREASED
--- NOTE | 2020-02-20 10:10 | NUR ---
ASSUMED CARE AT SHIFT CHANGE, ASSESSMENT CHARTED AND AFEBRILE. RADIOLOGIST DR FLOR CALLED CHEST XRAY FINDING THIS MORNING, DR KIRKPATRICK NOTIFIED AND HE CAME AND PLACED CT TO RT UPER/LATERAL CHEST.VSS, AND WILL CONTINUE TO MONITOR.
[2020-02-21] VITALS (88 sets, daily range): BP systolic 72–141; BP diastolic 44–85
--- NOTE | 2020-02-21 02:07 | NUR ---
0124- THIS RN NOTICIED A NEW FINDING OF SUBCUTANEOUS ACROSS BILATERAL CHEST, EXTENDING INTO THE NECK AND FACE. DR. KIRKPATRICK IMMEDIATELY NOTIFIED OF FINDING. A STAT CHEST XRAY WAS ORDERED. DR. KIRKPATRICK NOTIFIED AGAIN FOR THIS RN TO EXPRESS CONCERNS ABOUT THE SEVERITY. DR. KIRKPATRICK REQUESTING THE ER DOC TO PLACE A CHEST TUBE. DR. LEOS NOTIFIED IN THE ER OF PTS CONDITION. DR. LEOS STATING HE DOESNT HAVE TIME AND REQUESTING DR. KIRKPATRICK COME IN TO PLACE A CHEST TUBE. DR. KIRKPATRICK CALLED BACK A THIRD TIME AND UPDATED. DR. KIRKPATRICK STATES HE WILL BE IN THE ASSESS PT AND PLACE CHEST TUBE.
--- NOTE | 2020-02-21 03:23 | NUR ---
0255 - DR. KIRKPATRICK AT BEDSIDE. CHEST XRAY RESULTS ARE BACK CONFIRMING A LARGE RIGHT PNEUMOTHORAX. A NEW CHEST TUBE PLACED AT BEDSIDE BY DR. KIRKPATRICK.
[2020-02-21 04:21] LABS: CREATININE 0.5 mg/dL (0.7-1.3); MAGNESIUM 1.8 mg/dL (1.8-2.4); POTASSIUM 3.8 mmol/L (3.5-5.1)
[2020-02-21 04:40] LABS: MCHC 31.8 g/dL (28.0-37.0); WBC 5.6 thou/uL (4.0-11.0)
[2020-02-21 04:42] LABS: HEMATOCRIT 25.1 % (42.0-52.0); MCH 27.2 pg (26.0-34.0); MCV 85.4 fL (80.0-100.0); RBC 2.94 mil/uL (4.50-6.00); RDW 19.8 % (10.5-14.5)
--- NOTE | 2020-02-21 14:37 | NUR ---
chart review. pt cont with trach with vent support. cm spoke with son jerica rt phone he wants tomorrow 9am to discuss [facility] for dcp. will cont following as needed for dc needs.
[2020-02-22] VITALS (43 sets, daily range): BP systolic 80–166; BP diastolic 45–82
[2020-02-22 05:55] LABS: HEMATOCRIT 24.9 % (42.0-52.0); MCH 27.6 pg (26.0-34.0); MCHC 32.2 g/dL (28.0-37.0); MCV 85.6 fL (80.0-100.0); RBC 2.91 mil/uL (4.50-6.00); RDW 19.3 % (10.5-14.5); WBC 6.7 thou/uL (4.0-11.0)
--- NOTE | 2020-02-22 06:00 | NUR ---
REMAINS TRACHED AND VENTED. PROPOFOL 30 MCG AND FENTANYL 100 MCG FOR SEDATION. RIGHT LETERAL CHEST TUBE DRAINING A SCANT AMT OF YELLOWISH DRG SMALL AIR LEAK PRESENT DRS AWARE. BATHED WILL CONT TO MONITOR
[2020-02-22 06:19] LABS: CALCIUM 8.4 mg/dL (8.5-10.1); CREATININE 0.5 mg/dL (0.7-1.3); MAGNESIUM 1.9 mg/dL (1.8-2.4); POTASSIUM 4.7 mmol/L (3.5-5.1)
--- NOTE | 2020-02-22 09:00 | NUR ---
cm called pt son jerica this am, requested by jerica to discuss lt[facility] while he at home to have [place] involved in phone call. cm education [facility]. [facility]. education on vent wean, wound care, tf and rehab are just few things lt[facility] and help with for dcp. jerica stated don't want to go to [facility], so [facility] it is, i going to see him today and if have question i will try to remember. re-education to write down question co can have down on paper to remember " thank you"/jerica.
[2020-02-22 11:48] LABS: BE(vivo) -1.3 mmol/L (-2 to +3); HCO3 23.1 mmol/L (22.0-26.0); PCO2 37.2 mmHg (35.0-45.0); PO2 90.4 mmHg (80.0-100.0); pH 7.411 (7.360-7.450)
--- NOTE | 2020-02-22 14:21 | NUR ---
Referral called and faxed to [facility]. They are reviewing, Dc timeframe uncertain. Pt has chest tube with air leak. [place] liason will f/u with pt's son Andrea to see what questions family may have.
--- NOTE | 2020-02-22 15:42 | NUR ---
ASSUMED CARE @ 0700 02/22/20, PT ASSESSMENTS AND VSS COMPLETE PER ICU PROTOCOL. DR DURON AND DR KIRKPATRICK HERE THIS AM ORDERS RECIEVED AND EXECUTED. PT DOWN TO CT @ 1345 WITH THE AID OF 2 RN'S, 1 RT AND ONE TRANSPORTER TECH, NO COMPLICATIONS NOTED DURING TRANSPORT. CT RESULTS CALLED TO DR SHORT, NEURO CONSULT PLACED. BROOK[place]N BAKER, HERE AT APPROX 1030, UPDATE GIVEN ON STATUS OF PATIENT.
[2020-02-23] VITALS (39 sets, daily range): BP systolic 81–166; BP diastolic 41–77
[2020-02-23 05:53] LABS: HEMATOCRIT 24.1 % (42.0-52.0); HEMOGLOBIN 7.6 gm/dL (14.0-18.0); MCH 26.9 pg (26.0-34.0); MCHC 31.6 g/dL (28.0-37.0); MCV 85.2 fL (80.0-100.0); RBC 2.82 mil/uL (4.50-6.00); WBC 7.1 thou/uL (4.0-11.0)
[2020-02-23 05:55] LABS: ALBUMIN 1.5 g/dL (3.4-5.0); CALCIUM 8.3 mg/dL (8.5-10.1); CREATININE 0.5 mg/dL (0.7-1.3); POTASSIUM 4.1 mmol/L (3.5-5.1); TOTAL BILIRUBIN 0.4 mg/dL (0.2-1.0); TOTAL PROTEIN 6.8 g/dL (6.4-8.2)
[2020-02-23 06:04] LABS: PLATELET COUNT 1013 thou/uL (150-400)
[2020-02-23 08:14] LABS: BE(vivo) 1.1 mmol/L (-2 to +3); HCO3 25.6 mmol/L (22.0-26.0); PCO2 40.2 mmHg (35.0-45.0); pH 7.422 (7.360-7.450)
[2020-02-23 09:00] LABS: ABSOLUTE NEUTROPHILS 3.6 thou/uL (1.4-8.2); MYELOCYTES 3 %
[2020-02-23 09:02] LABS: ANISOCYTOSIS 2+; HYPOCHROMASIA SLIGHT; LARGE PLATELETS FEW; PLATELET ESTIMATE MARKEDLY INCREASED; POIKILOCYTOSIS SLIGHT
[2020-02-23 09:03] LABS: OVALOCYTES OCCASIONAL; POLYCHROMASIA 1+
--- NOTE | 2020-02-23 12:04 | HC ---
[facility] [place] [address] CONSULTATION Name: SPENCER GALLOWAY Room #: 250-P ADM IN M.R.#: [id number] Admission: 01/28/20 Attend Phys: Breanne Cortez MD Discharge: Date of : 45 Report #: [id number] THIS REPORT FOR: cc: FAM - Family physician unknown FAM - Family physician unknown Pedro Rizvi MD ~ DATE OF SERVICE: 02/22/2020 HISTORY OF PRESENT ILLNESS: This 75-year-old male patient is unable to provide any history. I reviewed the patient's records in the computer. The patient does not provide any history. It looks like this patient has been here for some time, and he has pretty eventful course. He presently has a chest tube. He was admitted with abdominal pain. He has not seen a doctor for a long time, and he is having all kinds of problems now. He had acute blood loss when he was admitted. He had abdominal pain. His blood sugar was elevated. He has malnutrition. He has been seen by multiple consultants. At one time he had bradycardia, premature ventricular contraction, septic shock; now, he is having a lot of respiratory problems also. He has an acute respiratory failure as well as a perforated duodenal ulcer. He also had peritonitis. That is all the 14-point review of system I can get in this patient. PAST MEDICAL HISTORY: As described above. He has not seen a doctor for years. FAMILY HISTORY: Unavailable. SOCIAL HISTORY: Unavailable except as summarized in the patient's chart. It says that he does not drink alcohol or smoke. PHYSICAL EXAMINATION: Pretty limited. He does not even follow simple command. He keeps moving his head here and there. When I try to do the pupils, he shuts his eyes. I cannot do any neurological examination, including neuromuscular examination; he did not move anything for me. He is a moderately developed individual. His blood pressure is 129/70, respirations 22, pulse is 100. LABORATORY DATA: Indicated hemoglobin of 8 and platelet count of 1142, which is extremely high. His GFR is 162. IMAGING: He did have a CT scan of the head which does not show any acute abnormality, but he has extensive emphysema. IMPRESSION AND PLAN: This patient has severe encephalopathy. He has a high platelet count; he can develop all kind of complications in the brain, including intracranial sinus thrombosis. The simplest test we can do is an EEG, but I do not think he can go to MRI with such an unstable respiratory status, but that [address] [address] CONSULTATION Name: SPENCER GALLOWAY Room #: [facility] IN .R.#: [id number] Admission: 01/28/20 Attend Phys: Breanne Cortez MD Discharge: Date of : 45 Report #: [id number] can be considered when the patient stabilizes. We will talk to the hospitalist tomorrow. Thank you very much for this referral. <ELECTRONICALLY SIGNED> By: Pedro Rizvi MD 02/23/20 1204 2002 2248 Pedro Rizvi MD /nt
--- NOTE | 2020-02-23 12:22 | EKG ---
[facility] [place] [address] ELECTROCARDIOGRAM REPORT Name: SPENCER GALLOWAY Room #: 250-P ADM IN M.R.#: [id number] Admission: 01/28/20 Attend Phys: Breanne Cortez MD Discharge: Date of : 45 Report #: [id number] THIS REPORT FOR: cc: FAM - Family physician unknown FAM - Family physician unknown Gigi Jack MD LOCATED WITHIN [facility] THIS REPORT FOR: //name// [facility] Test Date: 2020-02-23 Test Time: 12:00:12 Pat Name: SPENCER GALLOWAY Department: Room: 250 P Gender: M Acute Care Nursing Assistant: LULA : 1945 Requested By: Garry Ramirez Order Number: [id number] MD: Gigi Jack Measurements Intervals [place] Rate: 113 P: IA: QRS: 116 QRSD: 124 T: 39 QT: 331 QTc: 454 Interpretive Statements Atrial fibrillation Ventricular premature complexes Nonspecific T abnormalities Compared to ECG 01/28/2020 21:44:38 Sinus rhythm no longer present Electronically Signed On 02-23-2020 12:21:59 CDT by Gigi Jack [email or web address] <ELECTRONICALLY SIGNED> By: Gigi Jack MD, FACC 02/23/20 1221 1200 1200 Gigi Jack MD, [facility] /EPI
--- NOTE | 2020-02-23 15:32 | NUR ---
NEW ORDER PLACED FOR DOBHOFF TO BE PLACED BY IR. IR CALLED AND MADE AWARE OF ORDER. IR TEAM HAS ALREADY LEFT FOR THE DAY. CV HOLDING ANSWERED PHONE AND STATES IR WILL HAVE TO PLACE DOBHOFF IN AM.
--- NOTE | 2020-02-23 15:54 | NUR ---
cm provided update to [facility] and sent over negative covid test from the 12th. will cont to dcp toward [facility] when medically stable for dc per md's.
--- NOTE | 2020-02-23 16:43 | NUR ---
FAXED CLINICAL UPDATE TO [facility] SPOKE WITH DG IN ADM SHE RECEIVED UPDATE. DP TO FOLLOW.
--- NOTE | 2020-02-23 17:14 | NUR ---
DR. NEWSOME ROUNDED ON PT AND ASKED WHY NG TUBE HAD BEEN REMOVED AND OG TUBE WAS PLACED. AT TIME OF HIS ROUNDS PT WAS THRASHING HIS HEAD BACK AND FORTH AND PRESSING TONGUE ACROSS OG TUBE. DR. NEWSOME STATED THAT HE WAS MORE CONCERNED THAT PT WAS GOING TO DISLODGE OG TUBE WITH TONGUE AND ASPIRATE THAN CONCERN FOR NG TUBE. HE ORDERED OG TO BE REMOVED AND NEW DOBHOFF OR NG TUBE TO BE PLACED AND DR. CLEMENTS TO BE MADE AWARE. OG REMOVED AND NEW DOBHOFF WAS ATTEMPTED TO BE PLACE. ATTEMPT MADE BY THIS RN AND 2ND RN. ATTEMPTS FAILED. DR CLEMENTS MADE AWARE AND STATED TO PLACE ORDER FOR IR TO PLACE DOBHOFF. SEE PREVIOUS NOTE.
--- NOTE | 2020-02-23 18:46 | NUR ---
1207- RN NOTED RHYTHM CHANGE AND EKG WAS NOTED. PT AT TIME WAS HAVING LOTS OF ECTOPY. EKG NOTED AFIB. RN WAS TOLD IN REPORT PT WAS IN SR, SA, ST WITH PVC'S AND PAC'S. SEYMOUR CAO CALLED AND NOTIFED OF CHANGE. RN WAS GIVEN ONE TIME DOSE OF METOPROLOL SEE MAR AND PRN METOPROLOL FOR HR >120, Q6. PT REMAINDER OF SHIFT HAS BEEN IN AFIB AND AFLUTTER.
[2020-02-24] VITALS (36 sets, daily range): BP systolic 75–151; BP diastolic 39–114
[2020-02-24 03:19] LABS: BE(vivo) -2.5 mmol/L (-2 to +3); HCO3 21.2 mmol/L (22.0-26.0); PCO2 32.2 mmHg (35.0-45.0); PO2 94.2 mmHg (80.0-100.0); pH 7.437 (7.360-7.450); sO2 97.5 % (92.0-98.0)
[2020-02-24 06:30] LABS: HEMATOCRIT 24.6 % (42.0-52.0); MCH 27.8 pg (26.0-34.0); MCHC 32.7 g/dL (28.0-37.0); MCV 84.9 fL (80.0-100.0); RBC 2.89 mil/uL (4.50-6.00); RDW 20.1 % (10.5-14.5)
[2020-02-24 06:35] LABS: CALCIUM 8.5 mg/dL (8.5-10.1); CREATININE 0.6 mg/dL (0.7-1.3); POTASSIUM 4.3 mmol/L (3.5-5.1)
--- NOTE | 2020-02-24 07:26 | NUR ---
Patient not progressing towards plan of care as evidenced by continued encepholpathic apparence, vital signs are dependent on sedation medications. When sedation lightened, afib heart rate increases, with increased sedation gtt titrations, blood pressure drops into the sbp of 07 range. He is very resltess with lightened sedation, however does not follow commands or appear to respond to nurses interventions. Plan of care is for IR to place a dobhoff today to start nutrition. He had a temperature last night, however, the room is warm. Patient blankets were removed and only a light sheet was placed over him, overhead lights were dimmed, cooling off the room. His tempartures were taken orally, he is a mouth breather.
--- NOTE | 2020-02-24 11:11 | NUR ---
Dr. Rizvi rounded at 1100 and said he would like for Mr. Finn to have an MRI of the head and C-spine. He asked that we contact surgery to see if there are any clips that would be conraindicated for MRI. He also asked that we contact Dr. Fernando to see if he is stable enough to go to MRI. Spoke to Kassie and he said it can be done but only if we have an MRI compatible vent, MRI compatable tubing that was long enough for the chest tube and that he would have to go down on suction. Dr. Ramirez rounded on patient at 11:15 and was informed and he said he would speak to Dr. Rizvi.
[2020-02-25] VITALS (24 sets, daily range): BP systolic 82–157; BP diastolic 47–75
--- NOTE | 2020-02-25 03:18 | NUR ---
ASSUMED OT CARE AT 1900. VSS. [T INTUBATED AN SEDATD. SEDATION VACACTION FOR 10 MINUTES FROM POPOFOL AT 30MCG AND FENTANYL AT 50MCG; PT DOESNT FOLLOW COMMNADS, MOVES HEAD FROM SIDE TO SIDE, MOVES EXTREMITES TO BUT NOT PURPOSEFULLY. U/O AVERAGE OF 40MLS/HR. CREPITUS STILL PRESENT IN ANTERIOR CHEST, BILAT UPPER ARMS AND ABD. CHEST TUBE IN PLACE. PT IS STABLE WILL CONTINUE TO MONITOR
[2020-02-25 04:03] LABS: HCO3 23.1 mmol/L (22.0-26.0); PCO2 35.7 mmHg (35.0-45.0); PO2 108.2 mmHg (80.0-100.0); pH 7.429 (7.360-7.450); sO2 98.1 % (92.0-98.0)
[2020-02-25 06:34] LABS: HEMATOCRIT 23.3 % (42.0-52.0); HEMOGLOBIN 7.4 gm/dL (14.0-18.0); MCH 27.4 pg (26.0-34.0); MCHC 31.9 g/dL (28.0-37.0); MCV 86.1 fL (80.0-100.0); RDW 20.7 % (10.5-14.5); WBC 9.7 thou/uL (4.0-11.0)
[2020-02-25 06:40] LABS: ALBUMIN 1.5 g/dL (3.4-5.0); CALCIUM 8.2 mg/dL (8.5-10.1); CREATININE 0.5 mg/dL (0.7-1.3); POTASSIUM 3.8 mmol/L (3.5-5.1); TOTAL BILIRUBIN 0.4 mg/dL (0.2-1.0); TOTAL PROTEIN 6.8 g/dL (6.4-8.2)
[2020-02-25 06:45] LABS: PLATELET COUNT 785 thou/uL (150-400)
--- NOTE | 2020-02-25 10:32 | NUR ---
cm team notified that hospitalist saying bill can be dc to [facility]. patsy spoke with liaison via phone call, he is at the top of list, if have bed today, [facility] will call, if not it will need to be friday rt bill has chest tue and [facility] belt builder helper not there over weekends and has to be there. chart copy requested [facility] us to complete. [facility] form completed. bedside nurse to call report when discharging to [facility]. patsy spoke with son jerica via phone and he agrees with dcp.
[2020-02-25 12:08] LABS: ABSOLUTE NEUTROPHILS 6.6 thou/uL (1.4-8.2); ANISOCYTOSIS 1+; HYPOCHROMASIA 2+; PLATELET ESTIMATE INCREASED
--- NOTE | 2020-02-25 16:48 | NUR ---
[facility] RECEIV[facility]FIRM[facility] AND LEFT MSG WITH DG IN ADM.DP TO FOLLOW
--- NOTE | 2020-02-25 19:10 | NUR ---
RECEIVED PATIENT REPORT FROM KYLE HORTA. ASSUMED CARE AT THIS TIME.
[2020-02-26] VITALS (24 sets, daily range): BP systolic 78–138; BP diastolic 43–67
[2020-02-26 04:05] LABS: HEMATOCRIT 24.2 % (42.0-52.0); HEMOGLOBIN 7.7 gm/dL (14.0-18.0); MCH 27.5 pg (26.0-34.0); MCHC 31.7 g/dL (28.0-37.0); MCV 86.7 fL (80.0-100.0); RBC 2.79 mil/uL (4.50-6.00); RDW 20.7 % (10.5-14.5); WBC 13.4 thou/uL (4.0-11.0)
[2020-02-26 04:15] LABS: CALCIUM 8.4 mg/dL (8.5-10.1); CREATININE 0.5 mg/dL (0.7-1.3)
--- NOTE | 2020-02-26 17:14 | NUR ---
ATTEMPTED TO LOWER PT SEDATION. CUT PROPOFOL FROM 40 MCG/KG/MIN TO 20 MCG/KG/MIN, PT SHAKING HEAD REPEATEDLY, TRYING TO PULL AT TRACH, BREATING IN THE HIGH 30S TO 40S. INCREASED PROPOFOL TO 30 MCG/KG/MIN, WILL CONTINUE MONITORING AND ADJUST NEEDED
[2020-02-27] VITALS (21 sets, daily range): BP systolic 86–154; BP diastolic 49–99
--- NOTE | 2020-02-27 02:15 | NUR ---
ASSUMED PT CARE AT 1900. PT AWAKE WITH EYES WIDE OPEN, DOES NOT TRACK NOR FOLLOW COMMANDS.MOVING HEAD FROM LEFT TO RIGHT A LOT. VSS,HR 80s- 90s ON MAITANANCE DOSE AMIOdarone gtt, AFEBRILE. LUNG SOUNDS COARSE, SUCTIONING LARGE AMOUNT THICK WHITE SECRETIONS. CHEST TUBE INTACT, TUBINGS FREE FROM KINKS AND IN WORKING ORDER, NO OUTPUT NOTED.SEDATION VACATION GIVEN @ 0125 WITH INITIAL RR 16-20. RR UPTO MID 30s @ 0200, PT VERY RESTLESS AND SHAKING HEAD VIGOROUSLY. NOW LIGHTLY SEDATED.URINE OUTPUT GREENISH/JUANITA AND ADEQUATE.
[2020-02-27 03:30] LABS: BE(vivo) -1.8 mmol/L (-2 to +3); HCO3 22.1 mmol/L (22.0-26.0); PCO2 34.1 mmHg (35.0-45.0); sO2 97.9 % (92.0-98.0)
[2020-02-27 04:14] LABS: ALBUMIN 1.4 g/dL (3.4-5.0); CALCIUM 8.2 mg/dL (8.5-10.1); CREATININE 0.5 mg/dL (0.7-1.3); POTASSIUM 4.2 mmol/L (3.5-5.1); TOTAL BILIRUBIN 0.3 mg/dL (0.2-1.0); TOTAL PROTEIN 6.5 g/dL (6.4-8.2)
[2020-02-27 04:29] LABS: ABSOLUTE NEUTROPHILS 9.6 thou/uL (1.4-8.2); BASOPHILS 0.3 % (0.0-2.0); EOSINOPHILS 3.1 % (0.0-3.0); HEMATOCRIT 24.2 % (42.0-52.0); HEMOGLOBIN 7.5 gm/dL (14.0-18.0); LYMPHOCYTES 8.9 % (24.0-44.0); MCH 27.2 pg (26.0-34.0); MCV 87.7 fL (80.0-100.0); MONOCYTES 10.5 % (1.0-8.0); POLYS 77.2 % (36.0-66.0); RBC 2.76 mil/uL (4.50-6.00); RDW 20.8 % (10.5-14.5); WBC 12.4 thou/uL (4.0-11.0)
[2020-02-27 04:38] LABS: PLATELET COUNT 685 thou/uL (150-400)
--- NOTE | 2020-02-27 10:44 | NUR ---
0700-ASSUMED CARE OF PT.--VW
--- NOTE | 2020-02-27 17:00 | NUR ---
CONSULTED TO PLACE A PICC PRIOR TO TRANSFER TO LT[facility] FACILITY. ORDER AND CONSENT NOTED. PATIENT IS UNABLE TO FOLLOW DIRECTION. THE RIGHT UPPER ARM BASILIC WAS WIDLEY PATENT. A #5F TRIPLE LUMEN POWER PICC WAS PLACED PER HOSPITAL POLICY AFTER A BEDSIDE TIMEOUT WAS COMPLETED. PICC WAS TRIMMED TO 42CM AND ADVANCED WITH SOME RESISTANCE. PATIENT RESTLESS AND DIFFICULT TO REDIRECT. A STAT CHEST XRAY WAS ORDERED TO VERIFY PLACEMENT
[2020-02-28] VITALS (28 sets, daily range): BP systolic 102–174; BP diastolic 52–120
[2020-02-28 05:00] LABS: HEMATOCRIT 23.9 % (42.0-52.0); HEMOGLOBIN 7.6 gm/dL (14.0-18.0); MCH 28.1 pg (26.0-34.0); MCV 87.8 fL (80.0-100.0); RBC 2.72 mil/uL (4.50-6.00); WBC 12.4 thou/uL (4.0-11.0)
[2020-02-28 05:01] LABS: CALCIUM 8.3 mg/dL (8.5-10.1); CREATININE 0.5 mg/dL (0.7-1.3); POTASSIUM 3.9 mmol/L (3.5-5.1)
--- NOTE | 2020-02-28 06:00 | NUR ---
REMAINS TRACHED AND VENTED. SEDATED. FENTANYL TITRATED TO 10 MCG PROPOFOL AT 20 MCG TPN AT 65/HR. TOTAL OF 200 CC PALE YELLOW CHEST TUBE DRAINAGE TONIGHT. HAD 2 LARGE LOOSE STOOLS TONIGHT. BATHED. CONT TO MOVE HEAd BACK And forth at times. DR KIRKPATRICK MAY REMOVE CHEST TUBE TODAY AND PT CAN TX TO [facility]. WILL CONT TO MONITOR.
--- NOTE | 2020-02-28 07:00 | NUR ---
PT HAD A LARGE STOOL. BED CHANGED. NOTED A LARGE AMT OF SUB Q AIR IN UPPER CHEST. WILL NOTIFY DR KIRKPATRICK.
--- NOTE | 2020-02-28 08:46 | NUR ---
DR CASE NOTIFIED OF SUB Q AIR. LEFT ORDERS FOR STAT CXRAY. PT HAS HAD ANOTHER 100 CC CHEST DRAINAGE IN PAST 2 HRS. WILL CONT TO MONITOR
--- NOTE | 2020-02-28 15:38 | NUR ---
KARINA reviewed chart and spoke with attending physician. Pt remains in ICU. Pt has trach/peg in place. Pt is on IV meds. KARINA discussed case with [facility] liasion. Pt has chest tube in place. Chest tube to water seal with moderate CT output. Will not be removed today. [facility] liaison to discuss with the pulmonary physician at [facility] to see if they will be able to accept pt with CT if it will need to be in place for awhile. KARINA spoke with pt's son, Andrea, via phone to provide update and confirmed discharge plan to [facility] when medically stable. Andrea is agreeable with plan. KARINA/JANUARY is following to assist as needed with discharge planning.
--- NOTE | 2020-02-28 16:12 | NUR ---
ASSUMED CARE AT 0700. AFEBRILE. 2 BM'S TODAY. ADEQUATE UOP. PROPOFOL GTT FOR VENT MANAGEMENT. TPN INFUSING. VENTILATOR SETTINGS UNCHANGED. FENTANYL GTT TAKEN OFF. CHEST TUBE IN PLACE AND PATENT. WOUNDVAC IN PLACE AND MIDLINE ABDOMINAL INCISION APPROXIMATED WELL AND HEALING. PLAN IS TO TRANSFER TO [place]. PATIENT SLOWLY PROGRESSING TOWARDS THE PLAN OF CARE.
[2020-02-29] VITALS (19 sets, daily range): BP systolic 105–163; BP diastolic 60–105
--- NOTE | 2020-02-29 06:00 | NUR ---
VSS REMAINS TRACHED AND VENTED 30 % FIO2. SUCTIONED FOR A MOD AMT THIN BEIGE SPUTUM. RIGHT LATERAL CHEST TUBE ONLY 10 CC OUT THIS SHIFT. 900 CC UO PT CONT TO THRASH HEAD BACK AND FORTH FREQ. PROP AT 20 MCG AMIO .5 MG ANDF TPN AT 65 CC/HE. FEBRILE TEMP 99.2 AXI. PLAN TO TS TO [facility] THIS WEEK. WILL CONT TO MONITOR.
--- NOTE | 2020-02-29 06:00 | NUR ---
PT HAD 4 MOD BROWN LOOSE STOOLS TONIGHT.
[2020-02-29 06:23] LABS: HEMATOCRIT 26.1 % (42.0-52.0); HEMOGLOBIN 8.1 gm/dL (14.0-18.0); MCH 27.2 pg (26.0-34.0); MCV 87.6 fL (80.0-100.0); RBC 2.98 mil/uL (4.50-6.00); RDW 22.4 % (10.5-14.5); WBC 14.2 thou/uL (4.0-11.0)
[2020-02-29 06:36] LABS: CALCIUM 8.2 mg/dL (8.5-10.1); CREATININE 0.4 mg/dL (0.7-1.3); POTASSIUM 3.8 mmol/L (3.5-5.1)
--- NOTE | 2020-02-29 06:45 | NUR ---
PT BATHED. WHEN TURNED TO CHANGE BED. RIGHT CHEST TUBE SLIPPED OUT. DRESSING APPLIED. CHEST XRAY DONE. CONT TO HAVE SUB Q AIR ON UPPER CHEST DR CASE NOTIFIED. NO ORDERS AT THIS TIME. WILL CONT TO MONITOR.
--- NOTE | 2020-02-29 10:05 | NUR ---
>>>0700 Bedside shift report received, care assumed. Pt is alert and awake, watching tv. Denies pain or discomfort. >>>0830 Assessments done as documented. midsternum incision covered wit dressing connect to Wound vac, intact. will continue to monitor. >>>1000 Report given to receiving nurse in CCU. Pt transfered to room 211. Family notified about the transfer.
--- NOTE | 2020-02-29 10:41 | NUR ---
>>>0700 Bedside shift report received, care assumed >>>0800 Assessments done as documented. Pt remains restless with non purposeful movements. No pain or discomfort noted. Chest tubes to right upper chest removed as per operations supervisor 2nd shift, incision covered with wet to dry dressing. No drainage noted. On continuos propofol drip. >>>0930 Dr Ko rounding on pt, gave order to stop propofol drip. >>>1000 Pt off of propofol drip. Tolerating breathing via vent with no complications. Remains restless with non purposeful movements. Will continue to monitor.
--- NOTE | 2020-02-29 11:44 | NUR ---
KARINA reviewed chart and spoke with nursing and attending physician. Pt's chest tube is out. Pt is stable for transfer to [facility] today. KARINA discussed with [facility] liaison, Isabelle, who confirmed they are able to accept pt today. Pt to d/c on TPN and then have peg tube placed in about 2 weeks. enterprise resource planner faxed clinical updates to [facility] for review. KARINA notified by Isabelle that they may not be able to provide some of pt's medications (Fentanyl, Precedex, Amiodorone). KARINA provided contact info for pt's nurse for liaison to discuss. KARINA notified attending physician to provide update and see if meds can be changed. Awaiting input at this time. KARINA is following to assist as needed with discharge planning.
[2020-02-29] MEDS ORDERED: FOLIC ACID1 MG PO (12:55)
[2020-02-29] MEDS ORDERED: IPRAT-ALBUT 0.5-3 ML INH (12:56)
[2020-02-29] MEDS ORDERED: PRECEDEX IVPB (12:56)
[2020-02-29] MEDS ORDERED: [UNRECOGNIZED DRUG - CODE] SUBQ (12:58)
[2020-02-29] MEDS ORDERED: PERIDEX 0.12%473 M1 MUCOUS MEM (12:59)
[2020-02-29] MEDS ORDERED: LASIX 20 MG TAB20 MG IV (12:59)
[2020-02-29] MEDS ORDERED: REGLAN 5 MG TAB5 MG PO (13:00)
[2020-02-29] MEDS ORDERED: TPN ELECTROLYTE20 M1 IV (13:01)
[2020-02-29] MEDS ORDERED: PROTONIX IV40 MG IV (13:01)
[2020-02-29] MEDS ORDERED: VALPROATE500 MG/5 M IV (13:02)
--- NOTE | 2020-02-29 16:08 | NUR ---
PT DISCHARGING TODAY TO [facility] FAXED DC ORDERS/SUMMARY TO FACILITY SPOKE WITH DG IN ADM SHE RECEIVED ORDERS AND REQUESTED THE TPN FORMULA TO BE FAXED PHARMACY PRINTED UP FORMULA AND I FAXED TO FACILITY. TRANSPORT ARRANGED BY AMBULANCE FOR 1630. SON NOTIFIED BY ARNOLDO (KARINA) OF DC AND TIME OF TRANSPORT. UNIT NOTIFIED AND CHART COPY PER US. RN TO CALL REPORT TO [phone].
== END 2020-02-29 17:30 | DRG 3 ==
LOC: ER 22:43 → EROBS 01-28 01:54 → ICU 01-28 01:54
PROVIDERS: Anesthesiology; Emergency Medicine; Hospitalist; Internal Medicine; Internal Medicine Hematology & Oncology; Internal Medicine Pulmonary Disease; Nurse Practitioner; Nurse Practitioner Family; Pediatrics; ADMIT Hospitalist; ATTEND Hospitalist
PROC: 5A1955Z Respiratory Ventilation, Greater than 96 Consecutive Hours (ICD-10-PCS; principal; 2020-01-28)
PROC: 0DQU0ZZ Repair Omentum, Open Approach (ICD-10-PCS; principal; 2020-01-28)
PROC: 30233N1 Transfusion of Nonautologous Red Blood Cells into Peripheral Vein, Percutaneous Approach (ICD-10-PCS; principal; 2020-01-28)
PROC: 0BH17EZ Insertion of Endotracheal Airway into Trachea, Via Natural or Artificial Opening (ICD-10-PCS; principal; 2020-01-28)
PROC: 02HV33Z Insertion of Infusion Device into Superior Vena Cava, Percutaneous Approach (ICD-10-PCS; principal; 2020-01-28)
PROC: 0D9670Z Drainage of Stomach with Drainage Device, Via Natural or Artificial Opening (ICD-10-PCS; 2020-01-31)
PROC: 0B110F4 Bypass Trachea to Cutaneous with Tracheostomy Device, Open Approach (ICD-10-PCS; 2020-02-15)
PROC: 0W9930Z Drainage of Right Pleural Cavity with Drainage Device, Percutaneous Approach (ICD-10-PCS; 2020-02-20)
PROC: 0W9930Z Drainage of Right Pleural Cavity with Drainage Device, Percutaneous Approach (ICD-10-PCS; 2020-02-21)
DX: A41.9 Sepsis, unspecified organism (principal); E43 Unspecified severe protein-calorie malnutrition; K26.6 Chronic or unspecified duodenal ulcer with both hemorrhage and perforation; K65.9 Peritonitis, unspecified; R65.21 Severe sepsis with septic shock; G92 Toxic encephalopathy; J96.21 Acute and chronic respiratory failure with hypoxia; D62 Acute posthemorrhagic anemia; E87.0 Hyperosmolality and hypernatremia; J93.9 Pneumothorax, unspecified; E88.09 Other disorders of plasma-protein metabolism, not elsewhere classified; I95.9 Hypotension, unspecified; E87.6 Hypokalemia; E83.42 Hypomagnesemia; E83.51 Hypocalcemia; Z20.828 Contact with and (suspected) exposure to other viral communicable diseases; I49.3 Ventricular premature depolarization; K59.00 Constipation, unspecified; D47.3 Essential (hemorrhagic) thrombocythemia; E53.8 Deficiency of other specified B group vitamins; J43.9 Emphysema, unspecified; Z90.49 Acquired absence of other specified parts of digestive tract; Z79.899 Other long term (current) drug therapy; Z79.82 Long term (current) use of aspirin
CPT/HCPCS: 10078; 27000; 50093; 50101; 50386; 50403; 50445; 51412; 56524; 56525; 56527; 56528; 57092; 57103; 62110; 62900

== ENCOUNTER → 2020-03-10 | Outpatient (CLI) | payer OTHER ==
[~2020-03-10] MED LIST: FOLIC ACID1 MG PO; IPRAT-ALBUT 0.5-3 ML INH; LASIX 20 MG TAB20 MG IV; PERIDEX 0.12%473 M1 MUCOUS MEM; PRECEDEX IVPB; PROTONIX IV40 MG IV; REGLAN 5 MG TAB5 MG PO; TPN ELECTROLYTE20 M1 IV; VALPROATE500 MG/5 M IV; [UNRECOGNIZED DRUG - CODE] SUBQ
== END ==
LOC: CAT 21:42
PROVIDERS: ATTEND Emergency Medicine
DX: I67.89 Other cerebrovascular disease (principal); G93.40 Encephalopathy, unspecified; I67.2 Cerebral atherosclerosis

== ENCOUNTER → 2020-03-15 | Outpatient (CLI) | payer OTHER ==
[~2020-03-15] VITALS: Ht 152.4 cm; Wt 58.0 kg
[2020-03-15 10:46] VITALS: BP 114/58
[2020-03-15 11:28] LABS: APTT 25.2 Seconds (24.5-32.8); INR 1.1
== END | disposition home or self-care (01) ==
LOC: CV 10:59
PROVIDERS: ATTEND Radiology Diagnostic Radiology
DX: Z43.1 Encounter for attention to gastrostomy (principal); E46 Unspecified protein-calorie malnutrition; D64.9 Anemia, unspecified; Z90.49 Acquired absence of other specified parts of digestive tract; Z98.890 Other specified postprocedural states; Z79.899 Other long term (current) drug therapy; Z87.19 Personal history of other diseases of the digestive system; Z79.01 Long term (current) use of anticoagulants

== ENCOUNTER 2020-10-07 13:26 | Inpatient (IN) | payer OTHER ==
[2020-10-07] VITALS (19 sets, daily range): BP systolic 87–160; BP diastolic 43–69
[~2020-10-07] VITALS: Ht 152.4 cm; Wt 65.5 kg
--- NOTE | ~2020-10-07 | EMS ---
[address] [address] EMS Patient Care Report Name: SPENCER GALLOWAY Room #: REG MARIA LUISA Burris#: [id number] Admission: 10/07/20 Attend Phys: Discharge: Date of : 45 Report #: [id number] THIS REPORT FOR: //name// Report Transmitted: 10/07/2020 13:03 EMS Care Summary [place], [place]/[facility] Incident [id number] @ 10/07/2020 12:41 Incident Location [address] [place] [id number] Patient SPENCER GALLOWAY Male, 75 Years 1945 Patient Address [address] [place] [address] Patient History Cardiac Condition - Other, Patient Allergies No known allergies, Patient Medications None Reported, Chief Complaint SHORTNESS OF BREATH Disposition Transported No Lights/[place] Dispatch Reason Sick Person Transported To [facility] Narrative DISPATCHED TO A SICK. 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 PATIENT SAID [address] [address] EMS Patient Care Report Name: SPENCER GALLOWAY Room #: REG ER Stefany.#: [id number] Admission: 10/07/20 Attend Phys: Discharge: Date of : 45 Report #: [id number] THAT HE HAS BEEN SHORT OF BREATH OFF AND ON FOR ABOUT ONE WEEK. HE SAID IT NORMALLY COMES ON WHEN HE WAKES UP OR IS JUST SITTING STILL. PATIENT SAID HE IS SUPPOSED TO BE TAKING SOME MEDICINES BUT DOES NOT REMEMBER FOR WHAT AND HE HAS NOT TAKEN ANY SINCE . HE WAS ASSISTED IN STANDING AND SITTING ON THE COT, SECURED WITH STRAPS, AND MOVED TO THE AMBULANCE. PATIENT VITALS WERE REOBTAINED AND HE WAS PLACED ON A NASAL CANNULA. 12 LEAD AND IV WERE OBTAINED AND PATIENT WAS ADMINISTERED NORMAL SALINE. HE WAS TRANSPORTED TO THE HOSPITAL WITH VITALS, INTERVENTIONS, AND LUNG SOUNDS MONITORED. DURING TRANSPORT PATIENT SAID THAT HE FELT LIKE THE OXYGEN WAS HELPING HIS SHORTNESS OF BREATH. UPON ARRIVAL AT THE HOSPITAL HE WAS MOVED INTO ED ROOM 11 ON THE COT AND LIFTED OVER TO THE HOSPITAL BED. PATIENT CARE WAS TURNED OVER TO ED NURSING STAFF. Initial Vitals @13:15P: 84,BP: 103/68, @13:05P: 88,UT Suspected: false @13:13P: 84,BP: 102/64, @12:55P: 76,SpO2: 82, @13:10P: 90,BP: 81/59,SpO2: 90, @13:20P: 80,R: 18,BP: 128/56,Pain: 0/10,GCS: 15,SpO2: 96,Revised Trauma: 12, @12:57P: 80,R: 20,BP: 93/69,Pain: 0/10,GCS: 15,Glucose: 345,SpO2: 75,Revised Trauma: 12, Assessments @12:50MENTAL:Person Oriented,Time Oriented,Event Oriented,Place Oriented,SKIN:HEENT:Head/Face: No Abnormalities,Neck/Airway: No Abnormalities,LUNG SOUNDS:General: No Abnormalities,Left Upper: No Abnormalities,Right Upper: No Abnormalities,Left Lower: No Abnormalities,Right Lower: No Abnormalities,ABDOMEN:General: No Abnormalities,Left Upper: No Abnormalities,Right Upper: No Abnormalities,Left Lower: No Abnormalities,Right Lower: No Abnormalities,PELVIS//GI:No Abnormalities,EXTREMITIES:Capillary Refill: Right Upper: 3 Sec,Left Arm: No Abnormalities,Right Arm: No Abnormalities,Left Leg: No Abnormalities,Right Leg: No Abnormalities,PULSE:Radial: 1+ Thready,NEURO:No Abnormalities, Impression Shortness of breath Procedures @13:0512-Lead ECGResponse: UnchangedSucceeded@12:50ALS AssessmentResponse: UnchangedSucceeded@12:553-Lead ECGResponse: UnchangedSucceeded@12:57Normal Saline (.9% NaCl) 100cc (20 ga) Site: Antecubital-LeftResponse: UnchangedSucceeded@12:58Oxygen FlowRate: 4 Device: Nasal Cannula (NC) Response: ImprovedSucceeded Timeline 12:39,Call Received [facility] [address] [place] [address] EMS Patient Care Report Name: SPENCER GALLOWAY Room #: REG [place]#: [id number] Admission: 10/07/20 Attend Phys: Discharge: Date of : 45 Report #: [id number] 12:39,Dispatch Notified 12:41,Dispatched 12:41,En Route 12:48,On Scene 12:50,At Patient 12:50,ALS Assessment,Response: UnchangedSucceeded, 12:55,3-Lead ECG,Response: UnchangedSucceeded, 12:55,BP: / M,PULSE: 76,RR: R,SPO2: 82 Ox,ETCO2: ,BG: ,PAIN: ,GCS: , 12:57,Normal Saline (.9% NaCl) 100cc 20 ga Site: Antecubital-Left,Response: UnchangedSucceeded, 12:57,BP: 93/69 M,PULSE: 80,RR: 20 R,SPO2: 75 Ox,ETCO2: ,B,PAIN: 0,GCS: 15, 12:58,Oxygen FlowRate: 4 Device: Nasal Cannula (NC) Response: ImprovedSucceeded, 13:05,12-Lead ECG,Response: UnchangedSucceeded, 13:05,BP: / M,PULSE: 88,RR: R,SPO2: Ox,ETCO2: ,BG: ,PAIN: ,GCS: , 13:10,BP: 81/59 M,PULSE: 90,RR: R,SPO2: 90 Ox,ETCO2: ,BG: ,PAIN: ,GCS: , 13:10,Depart Scene 13:13,BP: 102/64 M,PULSE: 84,RR: R,SPO2: Ox,ETCO2: ,BG: ,PAIN: ,GCS: , 13:15,BP: 103/68 M,PULSE: 84,RR: R,SPO2: Ox,ETCO2: ,BG: ,PAIN: ,GCS: , 13:18,At Destination 13:20,BP: 128/56 M,PULSE: 80,RR: 18 R,SPO2: 96 Ox,ETCO2: ,BG: ,PAIN: 0,GCS: 15, 13:35,Call Closed Disclaimer v1.1 Copyright 2020 [employer] This EMS Care Summary contains data elements from the applicable legal record (which may be displayed differently). It is designed to provide pertinent information for the following purposes: continuity of care, clinical quality, and state data reporting. The complete legal record is available to ED staff and administrators of the receiving hospital in [facility]'s Patient Tracker. All data is provided "as is."
[2020-10-07 14:14] LABS: MCV 96.9 fL (80.0-100.0); PLATELET COUNT 550 thou/uL (150-400); RDW 15.6 % (10.5-14.5)
[2020-10-07 14:20] LABS: ANION GAP 21 mmol/L (7-16); BUN 75 mg/dL (7-18); CALCIUM 8.1 mg/dL (8.5-10.1); CHLORIDE 100 mmol/L (98-107); CO2 16 mmol/L (21-32); CREATININE 2.8 mg/dL (0.7-1.3); GLUCOSE 273 mg/dL (74-106); POTASSIUM 4.6 mmol/L (3.5-5.1); SODIUM 137 mmol/L (136-145)
[2020-10-07 14:22] LABS: BE(vivo) -11.5 mmol/L (-2 to +3); HCO3 13.1 mmol/L (22.0-26.0); PO2 147.2 mmHg (80.0-100.0); pH 7.356 (7.360-7.450); sO2 98.9 % (92.0-98.0)
[2020-10-07 14:29] LABS: HEMATOCRIT 16.5 % (42.0-52.0); HEMOGLOBIN 5.1 gm/dL (14.0-18.0)
[2020-10-07 14:31] LABS: ALBUMIN 2.4 g/dL (3.4-5.0); AMYLASE 94 U/L (25-115); DIRECT BILIRUBIN < 0.1 mg/dL (<0.1-0.2); LIPASE 196 U/L (73-393); MAGNESIUM 2.4 mg/dL (1.8-2.4); PHOSPHORUS 7.4 mg/dL (2.6-4.7); SGOT 16 U/L (15-37); SGPT 23 U/L (16-63); TOTAL BILIRUBIN 0.3 mg/dL (0.2-1.0); TOTAL PROTEIN 5.3 g/dL (6.4-8.2); TROPONIN-I 0.14 ng/mL (<0.06)
[2020-10-07 15:28] LABS: ABSOLUTE NEUTROPHILS 29.5 thou/uL (1.4-8.2); ANISOCYTOSIS 2+
[2020-10-07 15:29] LABS: HYPOCHROMASIA SLIGHT; MICROCYTES 2+; POLYCHROMASIA 1+
--- NOTE | 2020-10-07 16:20 | NUR ---
RECEIVED REPORT FROM ER NURSE AT 1615, PT WILL BE IN ROUTE TO ICU IN 10 TO 15 MINUTES
--- NOTE | 2020-10-07 16:56 | NUR ---
OLIVIA GALLOWAY (SON/ DPOA) CELL PHONE: [phone] WORK PHONE: [phone] OLIVIA SAID IF HE CANNOT BE REACHED BY JORJE PHONE TO CALL HIS WORK.
--- NOTE | 2020-10-07 16:59 | NUR ---
NOTIFIED MYCHAL HERRON OF REPORT THAT SON PROVIDED TO THIS RN. REPORTED THAT PATIENT HAS HOME HEALTH AND THAT HE HAD A FEEIDNG TUBE THAT FELL OUT APPROX 3-4 DAYS AGO. REPORTS HOME HEALTH HELPS MANAGE PATIENT MEDICATIONS, DOES NOT THINK ITS ACCURA TE THAT PATIENT HAS NOT BEEN ON MEDICATIONS (PER PATIENT REPORT) SINCE THE FALL . WILL ASSSIT FURTHER IF NEEDED.
--- NOTE | 2020-10-07 18:26 | NUR ---
A #5F TRIPLE LUMEN POWER PICC WAS PLACED PER HOSPITAL POLICY AFTER A BEDSIDE TIMEOUT WAS COMPLETED. THE LINE WAS TRIMMED TO 42CM AND ADVANCED WITHOUT DIFFICULTY. THE LINE WAS CONFIRMED USING SHERLOCK 3CG. LINE RELEASED FOR USE
[2020-10-07 19:57] LABS: HEMOGLOBIN 5.8 gm/dL (14.0-18.0)
[2020-10-07 19:58] LABS: HEMATOCRIT 17.7 % (42.0-52.0)
[2020-10-07 23:04] LABS: HEMOGLOBIN 6.8 gm/dL (14.0-18.0)
[2020-10-07 23:06] LABS: HEMATOCRIT 20.2 % (42.0-52.0)
[2020-10-07 23:07] LABS: CALCIUM 6.9 mg/dL (8.5-10.1); POTASSIUM 3.8 mmol/L (3.5-5.1)
[2020-10-07 23:23] LABS: CREATININE 1.5 mg/dL (0.7-1.3)
[2020-10-08] VITALS (47 sets, daily range): BP systolic 73–196; BP diastolic 26–137
[2020-10-08 05:27] LABS: CALCIUM 6.4 mg/dL (8.5-10.1); CREATININE 1.5 mg/dL (0.7-1.3); POTASSIUM 3.9 mmol/L (3.5-5.1); TROPONIN-I 0.16 ng/mL (<0.06)
[2020-10-08 05:29] LABS: HEMOGLOBIN 6.5 gm/dL (14.0-18.0)
[2020-10-08 05:33] LABS: MCH 29.8 pg (26.0-34.0); MCHC 33.8 g/dL (28.0-37.0); RBC 2.19 mil/uL (4.50-6.00); RDW 15.8 % (10.5-14.5); WBC 33.1 thou/uL (4.0-11.0)
[2020-10-08 05:41] LABS: MCV 88.1 fL (80.0-100.0)
[2020-10-08 05:42] LABS: HEMATOCRIT 19.3 % (42.0-52.0)
[2020-10-08 10:40] LABS: HEMOGLOBIN 7.1 gm/dL (14.0-18.0)
[2020-10-08 10:42] LABS: HEMATOCRIT 21.5 % (42.0-52.0)
--- NOTE | 2020-10-08 10:42 | NUR ---
ASSUMED PATIENT CARE AT 0700. UNIT OF PRBC GIVEN. ONE SMALL MAROON COLORED STOOL. GI TEAM TRANSPORTED PATIENT TO GI LAB AT 1043 FOR EGD.
--- NOTE | 2020-10-08 11:38 | EKG ---
[address] [address] ELECTROCARDIOGRAM REPORT Name: SPENCER GALLOWAY Room #: 248-P ADM IN M.R.#: [id number] Admission: 10/07/20 Attend Phys: Tressa Agustin MD Discharge: Date of : 45 Report #: [id number] [facility] ED Test Date: 2020-10-07 Test Time: 13:36:37 Pat Name: SPENCER GALLOWAY Department: Room: 248 Gender: M Ciaio Lumite Injector: JINNY : 1945 Requested By: Christiano Alfonso Order Number: [id number] MD: Gigi Jack Measurements Intervals [place] Rate: 92 P: 64 [place]: 152 QRS: 83 QRSD: 138 T: 40 QT: 410 QTc: 508 Interpretive Statements Sinus rhythm Ventricular bigeminy IVCD, consider atypical RBBB Compared to ECG 02/23/2020 12:00:12 Atrial fibrillation no longer present T-wave abnormality no longer present Electronically Signed On 10-08-2020 11:37:55 CDT by Gigi Jack [email or web address] <ELECTRONICALLY SIGNED> By: Gigi Jack MD, [facility] 10/08/20 1137 1336 1336 Gigi Jack MD, [facility] /EPI
[2020-10-08 13:04] LABS: HCO3 9.4 mmol/L (22.0-26.0); PCO2 14.7 mmHg (35.0-45.0); pH 7.424 (7.360-7.450); sO2 99.1 % (92.0-98.0)
[2020-10-08 13:34] LABS: CREATININE 1.6 mg/dL (0.7-1.3); POTASSIUM 4.1 mmol/L (3.5-5.1)
[2020-10-08 13:37] LABS: CALCIUM 5.3 mg/dL (8.5-10.1)
[2020-10-08 14:41] LABS: HEMATOCRIT 13.7 % (42.0-52.0); HEMOGLOBIN 4.5 gm/dL (14.0-18.0)
--- NOTE | 2020-10-08 14:58 | NUR ---
A LEFT IJ CENTRAL LINE WAS PLACED EMERGENTLY PER DR. CASE'S REQUEST. THE 25CM LINE WAS ADVANCED WITHOUT DIFFICULTY TO 5CM EXTERNAL. A STAT CHEST XRAY WAS DONE AND LINE CONFIRMED. LINE RELEASED FOR USE
[2020-10-08 15:42] LABS: RBC 1.98 mil/uL (4.50-6.00); RDW 16.8 % (10.5-14.5)
[2020-10-08 15:44] LABS: MCH 32.1 pg (26.0-34.0); MCHC 32.3 g/dL (28.0-37.0)
[2020-10-08 15:52] LABS: HEMATOCRIT 19.6 % (42.0-52.0); HEMOGLOBIN 6.3 gm/dL (14.0-18.0); WBC 7.9 thou/uL (4.0-11.0)
[2020-10-08 15:53] LABS: MCV 99.4 fL (80.0-100.0)
[2020-10-08 16:02] LABS: CREATININE 1.6 mg/dL (0.7-1.3); MAGNESIUM 1.7 mg/dL (1.8-2.4); POTASSIUM 3.9 mmol/L (3.5-5.1)
[2020-10-08 16:05] LABS: CALCIUM 8.7 mg/dL (8.5-10.1)
[2020-10-08 20:25] LABS: MCH 30.1 pg (26.0-34.0); RBC 2.87 mil/uL (4.50-6.00); RDW 14.7 % (10.5-14.5); WBC 12.7 thou/uL (4.0-11.0)
[2020-10-08 20:27] LABS: HEMOGLOBIN 8.6 gm/dL (14.0-18.0)
[2020-10-08 20:28] LABS: MCV 94.1 fL (80.0-100.0)
[2020-10-08 20:54] LABS: CREATININE 1.7 mg/dL (0.7-1.3); POTASSIUM 3.6 mmol/L (3.5-5.1)
[2020-10-08 20:56] LABS: CALCIUM 6.1 mg/dL (8.5-10.1)
[2020-10-08 21:06] LABS: MAGNESIUM 1.8 mg/dL (1.8-2.4); PHOSPHORUS 9.2 mg/dL (2.6-4.7)
--- NOTE | 2020-10-08 21:29 | NUR ---
2126 dr vieira called and updated with labs and poc. reported critical glucose, will start insulin drip. rn reported that pressors had been weaned, epi still on to assist with bradycardia. dr vieira verbally dc'd amiodarone drip at this time. pt coninues to have aram blood from mouth and og. vss stable on epi drip. will wean as tolerated. final ordered blood products transfusing at this time. patient has some spontaneous movement in bilateral arms. will continue to monitor.
[2020-10-09 00:24] LABS: HEMOGLOBIN 10.9 gm/dL (14.0-18.0)
[2020-10-09 03:44] LABS: BE(vivo) -8.5 mmol/L (-2 to +3); HCO3 16.1 mmol/L (22.0-26.0); PCO2 31.1 mmHg (35.0-45.0); PO2 407.6 mmHg (80.0-100.0); pH 7.333 (7.360-7.450); sO2 99.8 % (92.0-98.0)
[2020-10-09 05:28] LABS: HEMOGLOBIN 11.9 gm/dL (14.0-18.0)
[2020-10-09 05:30] LABS: HEMATOCRIT 34.3 % (42.0-52.0); MCH 30.5 pg (26.0-34.0); MCHC 34.6 g/dL (28.0-37.0); RBC 3.89 mil/uL (4.50-6.00); RDW 14.5 % (10.5-14.5); WBC 19.6 thou/uL (4.0-11.0)
[2020-10-09 05:32] LABS: MCV 88.1 fL (80.0-100.0)
[2020-10-09 05:37] LABS: CREATININE 1.8 mg/dL (0.7-1.3); POTASSIUM 3.4 mmol/L (3.5-5.1)
[2020-10-09 05:38] LABS: INR 1.53; PROTIME 16.3 Seconds (10.5-12.1)
[2020-10-09 05:39] LABS: CALCIUM 5.7 mg/dL (8.5-10.1)
--- NOTE | 2020-10-09 07:17 | EKG ---
[address] [address] ELECTROCARDIOGRAM REPORT Name: MARIELOSTEREMARIA LUISASPENCER IRA Room #: 244-P ADM IN M.R.#: [id number] Admission: 10/07/20 Attend Phys: Tressa Agustin MD Discharge: Date of : 45 Report #: [id number] [facility] Test Date: 2020-10-08 Test Time: 15:36:37 Pat Name: SPENCER GALLOWAY Department: Room: 244 Gender: M Director Of Social Services: NEHEMIAS : 1945 Requested By: Nahun Moore Order Number: [id number] MD: Senthil Espinosa Measurements Intervals [place] Rate: 56 P: -13 ND: 188 QRS: 93 QRSD: 132 T: -69 QT: 422 QTc: 408 Interpretive Statements Sinus rhythm Atrial premature complex IVCD, consider atypical RBBB Baseline wander in lead(s) V2 Compared to ECG 10/07/2020 13:36:37 Atrial premature complex(es) now present Ventricular premature complex(es) no longer present Electronically Signed On 10-09-2020 7:17:21 CDT by Senthil Espinosa [email or web address] <ELECTRONICALLY SIGNED> By: Senthil Espinosa MD, [facility] 10/09/20 0717 1536 1536 Senthil Espinosa MD, [facility] /EPI
[2020-10-09 11:28] LABS: URINE BILIRUBIN NEGATIVE (Negative); URINE BLOOD 3+ (Negative); URINE CLARITY CLOUDY; URINE COLOR YELLOW; URINE GLUCOSE-RANDOM* NEGATIVE (Negative); URINE KETONES NEGATIVE (Negative); URINE NITRITE-REFLEX NEGATIVE (Negative); URINE PROTEIN (DIPSTICK) 2+ (Negative); URINE UROBILINOGEN 0.2 E.U./dl (0.2-1.0)
[2020-10-09 11:30] LABS: URINE LEUKOCYTES-REFLEX 1+ (Negative)
--- NOTE | 2020-10-09 11:30 | NUR ---
Chart review. discussed during los with hospitalist and during am rounds. Unable to visit with patient related to, requiring vent support. Prior to admission, he lived home alone, managing his own medications. he been here in the past and was dc to [facility] home health in the past. Cm left message with son jerica, requesting a call back. will cont. following as needed for dc needs.
[2020-10-09 11:46] LABS: CASTS None Seen /LPF (None Seen); SQUAMOUS 0-3 Few /LPF (0-3)
[2020-10-09 11:47] LABS: AMORPHOUS URATES Few /LPF (None Seen); BACTERIA-REFLEX 1-9 Few /HPF (None Seen); TRANSITIONAL EPITHEL CELL 0-3 Few /LPF (None Seen); URINE WBC-REFLEX 6-15 Few /HPF (0-5)
[2020-10-09 11:48] LABS: CALCIUM 6.2 mg/dL (8.5-10.1); CREATININE 1.9 mg/dL (0.7-1.3); MAGNESIUM 1.5 mg/dL (1.8-2.4); PHOSPHORUS 4.2 mg/dL (2.6-4.7); POTASSIUM 4.3 mmol/L (3.5-5.1); TOTAL BILIRUBIN 0.6 mg/dL (0.2-1.0); TOTAL PROTEIN 2.9 g/dL (6.4-8.2)
[2020-10-09 11:58] LABS: ALBUMIN 1.2 g/dL (3.4-5.0)
--- NOTE | 2020-10-09 12:02 | 2DMMODE ---
[facility] [place] [address] 2 D/M-MODE ECHOCARDIOGRAM Name: SPENCER GALLOWAY Room #: 244-P ADM IN M.R.#: [id number] Admission: 10/07/20 Attend Phys: Tressa Agustin MD Discharge: Date of : 45 Report #: [id number] THIS REPORT FOR: cc: FAM - Family physician unknown FAM - Family physician unknown Senthil Espinosa MD [facility] ~ APPROVED REPORT Study performed: 10/09/2020 10:30:04 EXAM: Comprehensive 2D, Doppler, and color-flow Echocardiogram Patient Location: ICU Room #: 244 Status: routine BSA: 1.53 HR: 74 bpm BP: 113/56 mmHg Rhythm: NSR Other Information Study Quality: Technically Difficult Technically limited study due to lung disease, patient on ventilator, inability to position patient. Indications Hypotension COPD S^P Cardiac arrest 2D Dimensions IVSd: 9.07 (7-11mm) LVOT Diam: 22.95 (18-24mm) LVDd: 43.08 mm PWd: 9.03 (7-11mm) Ascending Ao: 30.52 (22-36mm) LVDs: 29.34 (25-40mm) Left Atrium: 30.15 (27-40mm) Aortic Root: 36.87 mm IVC: 13.00 mm Aortic Valve AoV Peak Eagle.: 1.50 m/s AO Peak Gr.: 9.03 mmHg LVOT Max P.38 mmHg LVOT Max V: 0.92 m/s COLIN Vmax: 2.53 cm2 Pulmonary Valve [facility] [address] [place] [address] 2 D/M-MODE ECHOCARDIOGRAM Name: SPENCER GALLOWAY Room #: 244-P [facility] IN [facility]#: [id number] Admission: 10/07/20 Attend Phys: Tressa Agustin, Discharge: Date of : 45 Report #: [id number] PV Peak Eagle.: 1.03 m/s PV Peak Gr.: 4.27 mmHg Tricuspid Valve TR Peak Eagle.: 3.13 m/s TR Peak Gr.: 39.16 mmHg PA Pressure: 49.00 mmHg Left Ventricle The left ventricle is normal size. Paradoxical septal motion consistent with conduction abnormality. There is normal left ventricular wall thickness. The left ventricular systolic function is normal. The left ventricular ejection fraction is within the normal range. LVEF is 55-60%. This study is not technically sufficient to allow evaluation of the LV diastolic function. Right Ventricle The right ventricle is normal size. The right ventricular systolic function is normal. Atria The left atrium size is normal. The right atrium size is normal. Aortic Valve The aortic valve is normal in structure. Aortic valve is calcified. Trace aortic regurgitation. There is no aortic valvular stenosis. Mitral Valve The mitral valve is normal in structure. There is no mitral valve regurgitation noted. No evidence of mitral valve stenosis. Tricuspid Valve The tricuspid valve is normal in structure. There is mild tricuspid regurgitation. Estimated PAP 49 mmHg. There is moderate pulmonary hypertension. Pulmonic Valve The pulmonary valve is normal in structure. Trace pulmonic regurgitation. Great Vessels The aortic root is normal in size. IVC is normal in size and collapses <50% with inspiration. Pericardium [facility] [address] [place] [address] 2 D/M-MODE ECHOCARDIOGRAM Name: SPENCER GALLOWAY Room #: 244-[facility] IN ..#: [id number] Admission: 10/07/20 Attend Phys: Tressa Agustin, Discharge: Date of : 45 Report #: [id number] There is no pericardial effusion. <Conclusion> Normal left ventricular size/wall thickness Ejection fraction 60% Normal right ventricle size/function Normal atrial size Color-flow Doppler study was performed of the aortic/mitral/tricuspid/pulmonary valve Mild aortic valve calcification without stenosis Trace aortic valve insufficiency Normal mitral valve structure and function Mild tricuspid valve insufficiency Pulmonary systolic pressure estimated 49 mmHg No pericardial effusion Normal aortic root size <ELECTRONICALLY SIGNED> By: Senthil Espinosa MD, [facility] 10/09/20 1201 1201 1201 Senthil Espinosa MD, [facility] /INF
--- NOTE | 2020-10-09 12:47 | EKG ---
[address] [address] ELECTROCARDIOGRAM REPORT Name: SPENCER GALLOWAY Room #: 244- ADM IN M.R.#: [id number] Admission: 10/07/20 Attend Phys: Tressa Agustin MD Discharge: Date of : 45 Report #: [id number] [facility] Test Date: 2020-10-09 Test Time: 09:22:10 Pat Name: SPENCER GALLOWAY Department: Room: 244 P Gender: M Skill Training Program Coordinator: LULA : 1945 Requested By: Martha Valdivia Order Number: [id number] MD: Senthil Espinosa Measurements Intervals [place] Rate: 75 P: 68 MA: 171 QRS: 73 QRSD: 139 T: 61 QT: 419 QTc: 468 Interpretive Statements Sinus rhythm IVCD, consider atypical RBBB Lead(s) aVL were not used for morphology analysis Compared to ECG 10/08/2020 15:36:37 Atrial premature complex(es) no longer present Electronically Signed On 10-09-2020 12:47:40 CDT by Senthil Espinosa [email or web address] <ELECTRONICALLY SIGNED> By: Senthil Espinosa MD, [facility] 10/09/20 1247 0922 Senthil Espinosa MD, [facility] /EPI
--- NOTE | 2020-10-09 18:57 | NUR ---
RIGHT SHEATH WAS PULLED OUT BY DR WORKMAN. MYCHAL RAMON HELD PRESSURE. DR. WORKMAN PLACED THE LEFT RADIAL ART LINE. PT BILATERAL LOWER LEGS PULSES WITH DOPPLER AND SKIN COLOR WAS ASSESSED WITH DR WORKMAN AT BEDSIDE THIS MORNING AT 0830 AM. PT HYPOTENSIVE TO SYSTOLIUC 80'S AROUND 9 AM. LEVOPHED STARTED. NEPHROLOGY AND CARDIOLOGY CONSULTED. POTASSIUM AND CALCIUM REPLACED. BLOOD GLUCOSE 29. INSULIN GTT OFF AND WAS GIVEN 100ML D10. RECHECK BLOOD GLUCOSE 61. ANOTHER ADDITIONAL D10 100ML GIVEN. DR. JIMÉNEZ NOTIFIED OF PATIENT'S BLOOD GLUCOSE. PER NEPHROLOGY, 5L BOLUS GIVEN. BICARB DRIP IN D5W RATE CHANGED TO 150ML/HR. BLOOD GLUCOSE BACK TO 135 NOW. CONTINUE TO MONITOR.
[2020-10-09 20:43] LABS: HEMATOCRIT 29.2 % (42.0-52.0)
[2020-10-09 20:47] LABS: HEMOGLOBIN 9.9 gm/dL (14.0-18.0)
[2020-10-09 20:56] LABS: MAGNESIUM 1.3 mg/dL (1.8-2.4); PHOSPHORUS 3.8 mg/dL (2.6-4.7)
[2020-10-10 05:04] LABS: BE(vivo) -4.2 mmol/L (-2 to +3); HCO3 20.7 mmol/L (22.0-26.0); PCO2 37.3 mmHg (35.0-45.0); PO2 119.7 mmHg (80.0-100.0); pH 7.362 (7.360-7.450); sO2 98.2 % (92.0-98.0)
[2020-10-10 05:54] LABS: HEMOGLOBIN 9.9 gm/dL (14.0-18.0); MCH 29.8 pg (26.0-34.0); MCHC 33.1 g/dL (28.0-37.0); MCV 90.1 fL (80.0-100.0); RBC 3.33 mil/uL (4.50-6.00); WBC 20.9 thou/uL (4.0-11.0)
[2020-10-10 05:56] LABS: ALBUMIN 1.1 g/dL (3.4-5.0); CREATININE 2.1 mg/dL (0.7-1.3); MAGNESIUM 2.4 mg/dL (1.8-2.4); POTASSIUM 3.6 mmol/L (3.5-5.1); TOTAL BILIRUBIN 0.6 mg/dL (0.2-1.0)
[2020-10-10 06:05] LABS: CALCIUM 5.6 mg/dL (8.5-10.1)
--- NOTE | 2020-10-10 07:28 | NUR ---
No progress toward goals. Pt restarted on Levophed at beginning of shift to keep MAP >65. Still not able to dopple pulses in feet or post tibial, toes on both feet are purple and cool to touch. Urine output for shift was 725 cc. No output from OG tube. Pt remains able to follow commands and nod yes/no appropriately when sedation is lightened.
[2020-10-10 09:20] VITALS: BP 116/62
[2020-10-10 11:20] VITALS: BP 105/53
--- NOTE | 2020-10-10 12:34 | NUR ---
0900-DR. LEWIS IN.LIBAN GONZALES BUTTER PRINTER,IN--VW 1030-DR. FLOWER IN. SPOKE W SON OVER PHONE,UPDATED ON POC.--VW 1130-SON & DTR IN LAW IN TO SEE. PASTORAL CARE IN. NARAYAN MARTINEZ BUTTER PRINTER,IN.--VW
[2020-10-10 13:19] VITALS: BP 112/56
--- NOTE | 2020-10-10 15:01 | HC ---
[facility] [place] [address] CONSULTATION Name: SPENCER GALLOWAY Room #: 244-P ADM IN M.R.#: [id number] Admission: 10/07/20 Attend Phys: Tressa Agustin MD Discharge: Date of : 45 Report #: [id number] THIS REPORT FOR: cc: FAM - Family physician unknown FAM - Family physician unknown Anthony Partida MD ~ DOC #: [id number] Anthony Partida MD DATE OF SERVICE: 10/09/2020 HISTORY OF PRESENT ILLNESS: The patient is a 75-year-old who we were asked to see regarding right lower extremity arterial insufficiency. The patient is a 75-year-old admitted on 10/07/2020 with upper GI bleed. The patient has a history of duodenal ulcer and this appears to have blood again. The patient presented with a week of blood per rectum and ultimately yesterday, the patient went to the invasive radiology lab for coiling to duodenal artery with an obvious duodenal GI bleed. It appears that the right femoral sheath was left in place due to coagulopathy issues and during the night at some point, the right lower extremity was noted to be cool. The response to that was to order an arterial Doppler exam. I received a phone call just before 6:00 a.m. this morning and came in to see the patient. After conferring with the invasive radiologist, I removed the femoral sheath. This was the best indicator of the patient's hemodynamics and as such, I placed a left radial line per cutdown as pulses were thready. There has been some improvement in the right lower extremity since that time, although both lower extremities are blotchy distally and the right which was initially cooler than the left is nearly the same temperature to feel. PAST MEDICAL HISTORY: Significant for the duodenal bleed. The patient appears to have had a Osito patch for perforated ulcer a year ago. The patient has a long smoking history and has renal insufficiency and chronic obstructive pulmonary disease. According to the history, the patient was taking no medications at home, he ran out of medicines and did not get prescriptions refilled. ALLERGIES: None known. FAMILY HISTORY: As per the chart as the patient is intubated. REVIEW OF SYSTEMS: As per the chart as the patient is intubated. [address] [address] CONSULTATION Name: SPENCER GALLOWAY Room #: 244-P [facility] IN .R.#: [id number] Admission: 10/07/20 Attend Phys: Tressa Agustin MD Discharge: Date of : 45 Report #: [id number] PHYSICAL EXAMINATION: GENERAL: The patient is lying in bed, intubated on fentanyl drip. HEMODYNAMICS: Heart rate 82 and sinus, blood pressure 105/54 per radial line, O2 sat 100%, temperature 37.7 HEENT: No scleral icterus. No arcus. NECK: I hear no bruit. CHEST: Has some scattered rhonchi. HEART: Rhythm regular. Heart tones are distant. ABDOMEN: Soft. Upper abdominal incision noted, an old G-tube site noted. EXTREMITIES: Toes are blotchy and bluish bilaterally with more ruborous appearance of the distal lower extremities. Right side is somewhat cool relative to the left, but improved since radial line is out. No popliteal pulses are palpable on either side. No dorsalis pedis or posterior tibial pulses are palpable on either side. Left femoral pulse is 2+ and right femoral pulses bandaged having had the catheter just removed. ASSESSMENT: When I reviewed the arteriogram, it appeared that the femoral sheath was nearly occlusive ____ this did not thrombosed and removal of the sheath should help reestablish reasonable flow. If not, this will be a difficult problem to treat. The patient is not a candidate for thrombolytic treatment and I doubt that cutdown with thrombectomy would be very rewarding in this fellow who has obvious multivessel arterial occlusive disease. If the patient has persistent problems and he may need an arteriogram to help direct treatment. I will discuss this with the other physicians. Thank you for the consult. Anthony Partida MD JF/ALL/NIS <ELECTRONICALLY SIGNED> By: Anthony Partida MD 10/10/20 1501 0717 0739 Anthony Partida MD /nt
[2020-10-10 15:20] VITALS: BP 98/45
[2020-10-10 20:43] LABS: HEMATOCRIT 27.6 % (42.0-52.0); HEMOGLOBIN 9.5 gm/dL (14.0-18.0)
[2020-10-11 01:12] VITALS: BP 106/59
[2020-10-11 04:44] LABS: HCO3 28.1 mmol/L (22.0-26.0); PO2 116.6 mmHg (80.0-100.0); pH 7.464 (7.360-7.450); sO2 98.4 % (92.0-98.0)
--- NOTE | 2020-10-11 05:07 | NUR ---
Slow progress toward goals. VS have remained stable without use of vasopressors. Pt able to follow commands, nod yes/no, does not interfere with lines and tubes and has not required restraints. Able to titrate FiO2 down from 50% to 40%, O2 sat remains > 95%. Scant dark reddish brown drainage from OG. Pt had one stool about 0400, moderate amount of dark clots, no fresh blood noted. Pt edema remains at least 3-4+ generalized. Finges dusky, toes still purple, but skin does cris. Monitor sinus rhythm with BBB.
[2020-10-11 05:47] LABS: HEMATOCRIT 25.9 % (42.0-52.0); HEMOGLOBIN 9.2 gm/dL (14.0-18.0); MCH 31.4 pg (26.0-34.0); MCHC 35.4 g/dL (28.0-37.0); MCV 88.8 fL (80.0-100.0); RBC 2.92 mil/uL (4.50-6.00); RDW 14.8 % (10.5-14.5); WBC 15.2 thou/uL (4.0-11.0)
[2020-10-11 06:13] LABS: CALCIUM 6.4 mg/dL (8.5-10.1); CREATININE 2.4 mg/dL (0.7-1.3); PHOSPHORUS 4.4 mg/dL (2.5-4.9); POTASSIUM 3.1 mmol/L (3.5-5.1)
--- NOTE | 2020-10-11 07:36 | HC ---
[facility] [place] [address] CONSULTATION Name: SPENCER GALLOWAY Room #: 244-P ADM IN M.R.#: [id number] Admission: 10/07/20 Attend Phys: Tressa Agustin MD Discharge: Date of : 45 Report #: [id number] THIS REPORT FOR: cc: SUNSHINE - Family physician unknown FAM - Family physician unknown Yoseph Mercado MD ~ DOC #: [id number] Yoseph Mercado MD DATE OF SERVICE: 10/07/2020 REASON FOR CONSULTATION: Acute kidney injury. HISTORY OF PRESENT ILLNESS: Obtained from the medical chart. The patient is currently intubated and not able to provide me with any history. The patient presented on 10/07 with dyspnea, pallor, dizziness, hematochezia. He was found to be extremely hypotensive. He is status post recent discharge after a duodenal ulcer bleed, status post Osito's patch. Back in February, he had an acute respiratory failure that required tracheostomy and the patient was transferred to an LTAC facility, [facility]. He was then sent to a SNF facility. Apparently, the patient has not been taking his known proton pump inhibitor and has been taking aspirin. He presented with the above-mentioned complaint and was found to have a hemoglobin of 5. The patient's condition deteriorated and required an intensive care stay after he was found to have an abnormal CT finding with a potential right upper quadrant swelling. The patient had a PEA arrest. He had massive GI bleeding and required 13 units of blood transfusion. He was taken to the IR and he underwent coil embolization of the gastroduodenal and the gastroepiploic arteries. The patient's creatinine on arrival to the emergency room was 2.8 and improved down to 1.5. However, in the last few days, his creatinine has been trending up to 2.1 as of this morning. He is significantly hypocalcemic after his blood transfusion. His hemoglobin is now 9.9. His platelets are 51. PAST MEDICAL HISTORY: Extensive and obtained from the medical chart and includes the followin. Gastric ulcer post-Osito's patch. 2. Appendectomy. 3. Tracheostomy. 4. Post-perforated duodenal ulcer. 5. History of pneumothorax post-chest tube. 6. Atrial fibrillation with rapid ventricular response. SOCIAL HISTORY: Not able to obtain; however, the patient has been to an LTAC, nursing facility, SNF, recently discharged. MEDICATIONS: Listed amongst his medications is aspirin. Otherwise, no available outpatient medication record. [address] [address] CONSULTATION Name: SPENCER GALLOWAY Room #: 244-P [facility] IN M.R.#: [id number] Admission: 10/07/20 Attend Phys: Tressa Agustin MD Discharge: Date of : 45 Report #: [id number] FAMILY HISTORY: Unobtainable given the patient's current mental status. REVIEW OF SYSTEMS: Unobtainable given the patient's current mental status and intubation status. PHYSICAL EXAMINATION: GENERAL: He is on the vent, sedated and intubated. He is currently maintained on IV fluid. VITAL SIGNS: His temperature is 37.0, pulse rate is 78, blood pressure is 105/70. He had low blood pressure readings at 83/50 overnight. HEAD AND NECK: No jugular venous distention. ET tube in place. CHEST: Decreased air entry bilaterally. CARDIOVASCULAR: No rubs detected. ABDOMEN: Soft. EXTREMITIES: Lower extremities, +2 edema. LABORATORY DATA: Reviewed. Hemoglobin is 9.9. White blood cell count is 20.9, platelet is 51. Sodium is 138, potassium is 3.6, BUN is 49, creatinine is up to 2.1, calcium is 5.6. ASSESSMENT, IMPRESSION, PLAN: 1. Acute kidney injury in the face of massive gastrointestinal bleeding post-cardiac arrest with exposure to contrast. 2. Massive gastrointestinal bleeding post-embolization of the gastroduodenal and proximal gastroepiploic arteries. 3. Right foot ischemic changes. 4. Respiratory failure. 5. Hypocalcemia due to massive blood transfusion. 6. Thrombocytopenia. 7. The patient is in a very critical condition. He is a no code status and remains in a very critical condition. His kidney function is worsening. His urine output is going down. His acidosis has improved. His overall prognosis remains very grim. He is status post embolization of his bleeding vessels with contrast exposure and pulseless electrical activity arrest. He has elevated liver enzymes. 8. Continue with the current hemodynamic support. 9. No dialysis is indicated. 10. Diuresis. 11. Continue IV fluid. 12. Other measures are as per the other consultants and primary team. Yoseph Mercado MD AIA/[address] [place] [address] CONSULTATION Name: LAVERNESPENCER IRA Room #: [address] [place] [address] IN M.R.#: [id number] Admission: 10/07/20 Attend Phys: Tressa Agustin MD Discharge: Date of : 45 Report #: [id number] <ELECTRONICALLY SIGNED> By: Yoseph Mercado MD 10/11/20 0736 0543 Yoseph Mercado MD /nt
[2020-10-11 09:06] LABS: BE(vivo) 5.1 mmol/L (-2 to +3); HCO3 29.1 mmol/L (22.0-26.0); PCO2 40.6 mmHg (35.0-45.0); pH 7.473 (7.360-7.450); sO2 98.7 % (92.0-98.0)
[2020-10-11 09:12] VITALS: BP 98/63
--- NOTE | 2020-10-11 09:30 | NUR ---
BPCI letter and preferred network provided to patient chart, unable to speak with patient on vent, no family at bedside, patient lives in home setting
--- NOTE | 2020-10-11 10:47 | NUR ---
ASSUMED PATIENT CARE AT 0700. PATIENT AWAKE AND FOLLOWING COMMANDS. CPAP TRIAL BY RT, BLOOD GAS RESULTS SENT TO DR. CASE BY RT. NO NEW ORDERS AT THIS TIME. ONE DARK BLOODY STOOL AT 1030. WILL CONTINUE TO MONITOR.
[2020-10-11 13:31] LABS: HEMATOCRIT 25.7 % (42.0-52.0); HEMOGLOBIN 8.8 gm/dL (14.0-18.0)
[2020-10-11 17:12] VITALS: BP 103/56
[2020-10-11 19:49] LABS: HEMATOCRIT 24.5 % (42.0-52.0); HEMOGLOBIN 8.3 gm/dL (14.0-18.0)
[2020-10-11 20:44] VITALS: BP 104/53
[2020-10-11 21:53] VITALS: BP 98/48
[2020-10-12] VITALS (36 sets, daily range): BP systolic 81–155; BP diastolic 42–59
[2020-10-12 04:43] LABS: HEMATOCRIT 25.3 % (42.0-52.0); HEMOGLOBIN 8.7 gm/dL (14.0-18.0); MCH 30.8 pg (26.0-34.0); MCHC 34.3 g/dL (28.0-37.0); RBC 2.81 mil/uL (4.50-6.00); RDW 15.3 % (10.5-14.5); WBC 11.7 thou/uL (4.0-11.0)
--- NOTE | 2020-10-12 04:53 | NUR ---
Patient pulling at medical equipment and attempting to extubated self. Bilateral soft wrist restraints applied. Orders received from Martha Marcus NP. Will continue to monitor.
[2020-10-12 05:04] LABS: ALBUMIN 0.9 g/dL (3.4-5.0); CALCIUM 6.7 mg/dL (8.5-10.1); CREATININE 2.5 mg/dL (0.7-1.3); MAGNESIUM 1.9 mg/dL (1.8-2.4); PHOSPHORUS 4.3 mg/dL (2.5-4.9); POTASSIUM 3.5 mmol/L (3.5-5.1)
[2020-10-12 08:55] LABS: BE(vivo) 2.3 mmol/L (-2 to +3); HCO3 26.3 mmol/L (22.0-26.0); PCO2 38.2 mmHg (35.0-45.0); PO2 137.3 mmHg (80.0-100.0); pH 7.455 (7.360-7.450); sO2 98.9 % (92.0-98.0)
[2020-10-12 18:30] LABS: HEMATOCRIT 24.4 % (42.0-52.0); HEMOGLOBIN 8.4 gm/dL (14.0-18.0)
--- NOTE | 2020-10-12 18:36 | NUR ---
EXTUBATED TODAY, BROOKS REMOVED, DANA PICC REMOVED. AWAKE AND ALERT, CONFUSED BUT ANSWERS MOST QUESTIONS APPROPRIATELY. CONTINUING TO MONITOR H&H. LAST DRAWN THIS AFTERNOON WAS 8.4&24/. SMALL LIQUID DARK RED STOOL TODAY.
--- NOTE | 2020-10-12 20:38 | NUR ---
ASSUMED CARE AT 1900. PT ASKING TO EAT, IRRITABLE THAT HE HASN'T BEEN CLEARED FOR A DIET YET. REPORTS UPPER ABD PAIN W/COUGHING, SCROTAL, AND BLE PAIN; GAVE 2MG MORPHINE WHICH HELPED PT RELAX/SLEEP. BILAT PEDAL AND POST TIBIAL PULSES STRONGLY PRESENT W/DOPPLER. STRONG CONGESTED COUGH, USING YANKEUR TO SUCTION SELF, DARK RED/BROWN SECRETIONS NOTED. NO OTHER CONCERNS, GAVE HANDOFF AT 2029.
--- NOTE | 2020-10-12 22:54 | NUR ---
PT IS ORIENTED TO PERSON AND THE MONTH. OTHERWISE, HE IS VERY CONFUSED. HE HAS BEEN RESTLESS AND IRRITABLE. C/O SCROTAL PAIN. PT ATTEMPTED TO GET OUT OF BED. VERSED GIVEN TO HELP WITH AGITATION/RESTLESSNESS. PT IS NOW RESTING IN BED. SBP 80S-110S. AFEBRILE. O2 INCREASED FROM 5 TO 8L NC SPO2 WAS 86-88% AFTER VERSED. WILL CONTINUE TO MONITOR CLOSELY.
[2020-10-13] VITALS (40 sets, daily range): BP systolic 97–160; BP diastolic 37–82
[2020-10-13 05:16] LABS: HEMATOCRIT 24.9 % (42.0-52.0); HEMOGLOBIN 8.4 gm/dL (14.0-18.0); MCH 30.7 pg (26.0-34.0); MCHC 33.8 g/dL (28.0-37.0); MCV 90.8 fL (80.0-100.0); RBC 2.75 mil/uL (4.50-6.00); RDW 15.5 % (10.5-14.5); WBC 9.6 thou/uL (4.0-11.0)
--- NOTE | 2020-10-13 05:28 | NUR ---
PT HAS BEEN RESTLESS AND VERY IRRITABLE THIS SHIFT. HE REMAINS CONFUSED, ORIENTED TO SELF. HE DOES NOT REMEMBER THAT HE IS IN THE HOSPITAL AND OFTEN ASKS TO GET OUT OF BED. C/O SCROTAL PAIN. SCROTUM IS VERY SWOLLEN, +3 PITTING EDEMA. SCROTUM ELEVATED TO HELP REDUCE SWELLING. MORPHINE GIVEN PRN FOR PAIN. REPOSITIONED PT TO PREVENT SKIN BREAKDOWN. ADEQUATE URINE OUTPUT VIA MAC. NPO EXCEPT SOME ICE CHIPS. PT TOLERATED ICE CHIPS WELL. NO S/S BLEEDING NOTED THIS SHIFT. FALL PRECAUTIONS IN PLACE. NOT PROGRESSING WELL TOWARD POC GOALS. WILL CONTINUE TO MONITOR.
[2020-10-13 05:38] LABS: CALCIUM 7.2 mg/dL (8.5-10.1); CREATININE 2.6 mg/dL (0.7-1.3); MAGNESIUM 1.9 mg/dL (1.8-2.4); POTASSIUM 3.2 mmol/L (3.5-5.1)
--- NOTE | 2020-10-13 08:38 | NUR ---
OT ATTEMPTS EVALUATION AT 0835, PT. REFUSING, STATING "WHO GAVE YOU PRIOR AUTHORIZATION AND CONSENT TO BE HERE?" AND "I DONT' WANT TO DO ANY OF THAT THERAPY STUFF, JUST LET ME BE IF THAT'S OKAY" OT STATES THEY WILL RETURN TOMORROW TO TRY AGAIN AND PT. STATES "OH OKAY, YEAH LET'S DO TOMORROW"
--- NOTE | 2020-10-13 15:22 | NUR ---
KARINA reviewed chart and spoke with attending physician. Pt remains in ICU. Pt is on 6L of O2 via NC. Pt is on IV lasix and IV abx. ST eval completed yesterday. Recommendation made for pt to be on a mechanical soft diet with thin liquids. PT/OT ordered. Pt refused evals today. Will attempt over the weeekend. No weekend discharge planned. KARINA placed call to pt's son, Andrea. Spoke with Andrea briefly, as he was at work. Andrea requests call back early Friday morning around 08 or Friday, when he is off from work. KARINA explained role of SW and case mgmt will be in touch to discuss discharge planning. Andrea verbalized understanding. KARINA is following to assist as needed with discharge planning.
--- NOTE | 2020-10-13 18:29 | NUR ---
ASSESSMENT CHARTED. PT ALERT TO SELF. SOME HOW RESTLESS AND CONFUSED. PRN PAIN MED GIVEN FOR SCROTAL PAIN WITH PARTIAL RELIEF. RT TREATMENT PROVIDED ORDERED. NO RESPIRATORY DISTRESS NOTED.
[2020-10-14] VITALS (31 sets, daily range): BP systolic 104–151; BP diastolic 51–113
[2020-10-14 04:04] LABS: HEMATOCRIT 25.9 % (42.0-52.0); HEMOGLOBIN 8.7 gm/dL (14.0-18.0); MCH 30.7 pg (26.0-34.0); MCHC 33.8 g/dL (28.0-37.0); MCV 90.8 fL (80.0-100.0); RBC 2.85 mil/uL (4.50-6.00); RDW 15.6 % (10.5-14.5); WBC 5.3 thou/uL (4.0-11.0)
[2020-10-14 04:17] LABS: ALBUMIN 1.2 g/dL (3.4-5.0); CALCIUM 7.8 mg/dL (8.5-10.1); CREATININE 2.6 mg/dL (0.7-1.3); DIRECT BILIRUBIN 0.6 mg/dL (<0.1-0.2); POTASSIUM 3.1 mmol/L (3.5-5.1); TOTAL BILIRUBIN 1.3 mg/dL (0.2-1.0)
--- NOTE | 2020-10-14 04:53 | NUR ---
PT A/OX44.VSS,AFEBRILE,IN NO ACUTE DISTRESS.ON O2 AT 4LITERS PNC,SATS [place].DENIES PAIN MOST PART OF THE NOC.PT EDEMATOUS SHILPA UES W/LEFT FOREARM ABLATIONS WEEPING MODERATELY.COARSE LUNGS NOTED.HAS LOOSE COUGH.MAC DD LARGE AMOUNT OF CLEAR URINE.REPOSITIONED FREQUENTLY IN BED.TOLERATING PUDDING BUT HAVING DIFFICULTIED SWALLOWING THIN LIQUIDS NEEDS SUPERVISION.PT PROGRESSING TOWARDS GOALS SLOWLY.
--- NOTE | 2020-10-14 16:01 | NUR ---
PT ALERT AND ORIENTED WITH FORGETFULNESS. VSS. PRN PAIN MED GIVE FOR RIGHT CALF PAIN WITH PARTIAL RELIEF. EVALUATED BY PT/OT. HAD GOOD URINE OUTPUT. SHEDULED RT TREATMENT GIVE ORDERED. NO CARDIAC OR RESPIRATORY DISTRESS NOTED.
[2020-10-15] VITALS: BP 119/54
[2020-10-15 04:24] LABS: ALBUMIN 1.2 g/dL (3.4-5.0); CALCIUM 8.1 mg/dL (8.5-10.1); CREATININE 2.5 mg/dL (0.7-1.3); PHOSPHORUS 2.7 mg/dL (2.6-4.7)
[2020-10-15 04:26] LABS: POTASSIUM 2.8 mmol/L (3.5-5.1)
[2020-10-15 04:45] VITALS: BP 109/80
[2020-10-15 08:00] VITALS: BP 107/56
[2020-10-15 20:15] VITALS: BP 116/61
[2020-10-16 04:00] VITALS: BP 135/64
[2020-10-16 05:37] LABS: ALBUMIN 1.2 g/dL (3.4-5.0); CALCIUM 7.4 mg/dL (8.5-10.1); CREATININE 2.3 mg/dL (0.7-1.3); PHOSPHORUS 2.3 mg/dL (2.6-4.7); POTASSIUM 3.6 mmol/L (3.5-5.1)
[2020-10-16 12:25] VITALS: BP 114/61
--- NOTE | 2020-10-16 14:31 | NUR ---
Patient evaled by 5N and too low level for acute rehab could not tolerate. Gave patient skilled list to review. Patient reports he lives in apt alone. He has friend who assists him. He requests caset sp with her. He reports his son and him do not always agree. He reports in past advised to move in with son but he refused. Sp with friend Krystle Becksravanthi [phone]. she reports patient dc [facility] She reports from [place] patient dc to a facility in [facility]. she cannot recall what facility. She reports patient will refuse skilled. She reports it was difficult to have him go to hospital at all. Encouraged patient to review skilled post acute list.
[2020-10-16] MEDS ORDERED: PEPCID20 MG PO (15:31)
[2020-10-16] MEDS ORDERED: PULMICORT0.5 MG/21 INH (15:31)
[2020-10-16 16:52] VITALS: BP 116/59
--- NOTE | 2020-10-16 18:57 | NUR ---
RN ASSUMED PT'S CARE AT 0700AM, PT IS A&OX4, PT IS O12 1L/MIN/NC, PT'S VS ARE STABLE, PT'S SOB AND EDEMA HAVE IMPROVED, BUT PT STILL HAS WEAKNESS , PT NEEDS HELP ADL.
[2020-10-16 19:41] VITALS: BP 133/64
[2020-10-17 03:40] VITALS: BP 123/71
[2020-10-17 05:11] LABS: ALBUMIN 1.4 g/dL (3.4-5.0); CALCIUM 7.2 mg/dL (8.5-10.1); CREATININE 2.2 mg/dL (0.7-1.3); PHOSPHORUS 3.2 mg/dL (2.5-4.9); POTASSIUM 3.3 mmol/L (3.5-5.1)
--- NOTE | 2020-10-17 06:48 | NUR ---
PATIENTS CARES WERE ASSUMED AT SHIFT CHANGE. PATIENT WAS ASSESSED AND MEDS WERE PASSED. 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
[2020-10-17 09:07] VITALS: BP 141/114
--- NOTE | 2020-10-17 12:41 | NUR ---
PT ALERT AND ORIENTED TIMES FOUR. VSS, 3L NC. PT DENIES PAIN/SOA. PT WORKED FAIR WITH PT AND IS UP SITTING IN THE CHAIR. PT TOLERATES MEDS AND MEALS. PT SLOWLY PROGRESSING TOWRADS POC GOALS.
[2020-10-17 16:00] VITALS: BP 112/72
--- NOTE | 2020-10-17 17:11 | NUR ---
spoke with patient and son. Both cannot recall where patient has been prev for post acute care in 2020. Patient agreeable to referral to [facility]. DIscussed [facility] does not have ltc patients and rehab to home program. Patient agreeable as it is not a nursing facility. Faxed referral packet they are accepting of patient. left message to update son. Sp with Krystle patients friend who reports she recalled it was [facility] where he was prev. Spoke with patient if he would want referral to [facility] and he reports he is not particular and agreeable to [facility]. cm following
[2020-10-17 19:43] VITALS: BP 118/63
[2020-10-18 04:44] VITALS: BP 131/68
[2020-10-18 05:26] LABS: HEMOGLOBIN 7.7 gm/dL (14.0-18.0)
[2020-10-18 05:29] LABS: HEMATOCRIT 22.7 % (42.0-52.0); MCHC 33.8 g/dL (28.0-37.0); MCV 91.6 fL (80.0-100.0); RBC 2.48 mil/uL (4.50-6.00)
[2020-10-18 05:46] LABS: WBC 1.8 thou/uL (4.0-11.0)
[2020-10-18 05:52] LABS: ALBUMIN 1.4 g/dL (3.4-5.0); DIRECT BILIRUBIN 0.2 mg/dL (<0.1-0.2); TOTAL BILIRUBIN 0.7 mg/dL (0.2-1.0); TOTAL PROTEIN 4.5 g/dL (6.4-8.2)
[2020-10-18 06:16] LABS: ALBUMIN 1.4 g/dL (3.4-5.0); CALCIUM 7.2 mg/dL (8.5-10.1); PHOSPHORUS 3.1 mg/dL (2.5-4.9); POTASSIUM 3.7 mmol/L (3.5-5.1)
[2020-10-18 06:20] LABS: HEMOGLOBIN 7.8 gm/dL (14.0-18.0)
[2020-10-18 06:22] LABS: HEMATOCRIT 23.5 % (42.0-52.0); MCH 30.8 pg (26.0-34.0); MCHC 33.4 g/dL (28.0-37.0); MCV 92.2 fL (80.0-100.0); PLATELET COUNT 319 thou/uL (150-400); RBC 2.55 mil/uL (4.50-6.00); RDW 15.9 % (10.5-14.5)
[2020-10-18 06:23] LABS: WBC 1.8 thou/uL (4.0-11.0)
[2020-10-18 08:32] VITALS: BP 130/69
--- NOTE | 2020-10-18 11:06 | NUR ---
Received awake on bed. Due medications given as prescribed, able to swallow meds w/o difficulty. On room air. On MS, not on telemetry; no complains and signs of chest pain, crushing sensation and heaviness. Assisted in ADLs. Vital signs stable. On mechanically altered diet- assisted, supervised and encouraged in eating and drinking; no nausea, no vomiting and no abdominal pain noted. With samuels in place; draining well; output measured and recorded accordingly; bag changed today. With bilateral LE and UE edema; extremities kept elevated. With 3 lumen IJ at L- flushing well; saline locked. Maintained on isolation due to low WBC. Falls bundle in place. Able to turn self in bed. No complains of pain made during assessment. Pt seen and examined by Dr Moore this AM; relayed to him re: WBC from this AM, drawn 2x to verify- physician aware, a/w further orders. With orders for urine c/s- specimen obtained and sent to lab, chest xray done at bedside. To continue monitoring patient.
[2020-10-18 11:10] LABS: URINE BILIRUBIN NEGATIVE (Negative); URINE BLOOD TRACE (Negative); URINE CLARITY CLEAR; URINE COLOR YELLOW; URINE GLUCOSE-RANDOM* NEGATIVE (Negative); URINE KETONES NEGATIVE (Negative); URINE LEUKOCYTES-REFLEX NEGATIVE (Negative); URINE NITRITE-REFLEX NEGATIVE (Negative); URINE PROTEIN (DIPSTICK) NEGATIVE (Negative); URINE UROBILINOGEN 0.2 E.U./dl (0.2-1.0)
[2020-10-18 11:32] LABS: SSA (PROTEIN CONFIRMATORY) NEGATIVE (Negative)
[2020-10-18 15:48] VITALS: BP 117/57
--- NOTE | 2020-10-18 17:32 | NUR ---
Patient not stable for discharge to [facility] today. [facility] will have bed in am. Patient cont to be in agreement with [facility] dc. Updated son who visited today.
[2020-10-18 19:31] VITALS: BP 117/58
[2020-10-18 22:06] LABS: HEMOGLOBIN 7.8 g/dL (13.0-17.7)
[2020-10-19] VITALS (23 sets, daily range): BP systolic 81–127; BP diastolic 37–63
[2020-10-19 05:24] LABS: HEMOGLOBIN 8.3 gm/dL (14.0-18.0); RDW 15.9 % (10.5-14.5)
[2020-10-19 05:26] LABS: HEMATOCRIT 24.5 % (42.0-52.0); MCHC 33.7 g/dL (28.0-37.0); RBC 2.66 mil/uL (4.50-6.00)
[2020-10-19 05:31] LABS: PLATELET COUNT 404 thou/uL (150-400)
[2020-10-19 05:32] LABS: WBC 1.9 thou/uL (4.0-11.0)
[2020-10-19 05:48] LABS: ALBUMIN 1.5 g/dL (3.4-5.0); CALCIUM 7.5 mg/dL (8.5-10.1); PHOSPHORUS 2.8 mg/dL (2.5-4.9); POTASSIUM 3.7 mmol/L (3.5-5.1)
[2020-10-19 10:33] LABS: ABSOLUTE NEUTROPHILS 0.1 thou/uL (1.4-8.2); PLATELET ESTIMATE NORMAL
--- NOTE | 2020-10-19 13:10 | NUR ---
FAXED CLINICAL UPDATES TO [facility]. WILL CONFIRM WITH SOLOMON/ JULIA THAT SHE RECEIVED. [facility] P [phone]; FAX [phone]; SOLOMON/JULIA [phone]
--- NOTE | 2020-10-19 14:25 | NUR ---
FAXED CLINICAL UPDATES, THERAPY NOTES AND NEGATIVE COVID RESULTS TO [facility]. CONFIRMED WITH SOLOMON/JULIA THAT THEY DID NOT RECEIVE SO WILL FAX TO ANOTHER NUMBER. SOLOMON SPOKE TO BETHANY/RN PERIOPERATIVE REGARDING PATIENT NOT DISCHARGING TODAY. WILL CONFIRM SHE RECEIVES THE UPDATES. [facility] P [phone]; FAX [phone]; SOLOMON/JULIA Carreno [phone]
[2020-10-19 15:15] LABS: URINE BILIRUBIN NEGATIVE (Negative); URINE BLOOD 1+ (Negative); URINE CLARITY CLEAR; URINE COLOR YELLOW; URINE GLUCOSE-RANDOM* NEGATIVE (Negative); URINE KETONES NEGATIVE (Negative); URINE LEUKOCYTES-REFLEX NEGATIVE (Negative); URINE NITRITE-REFLEX NEGATIVE (Negative); URINE PROTEIN (DIPSTICK) 1+ (Negative); URINE SPECIFIC GRAVITY 1.015 (1.005-1.035)
[2020-10-19 15:25] LABS: CASTS None Seen /LPF (None Seen); SQUAMOUS None Seen /LPF (0-3); URINE WBC-REFLEX 0-5 Rare /HPF (0-5)
[2020-10-19 15:26] LABS: BACTERIA-REFLEX 1-9 Few /HPF (None Seen); URINE RBC 3-10 Few /HPF (NONE SEEN)
--- NOTE | 2020-10-19 16:24 | NUR ---
AT APPX 1545, PT BACK FROM XRAY AND VS TAKEN. PT MORE LETHARGIC, W/ FEVER 102.6, B/P 81/37, HR 109, RR 30. DR. TAYLOR CONTACTED AND ORDERS NOTED FOR FLUID BOLUS. DR. CASE CONTACTED AND ORDERS NOTED TO TRANSFER TO ICU W/ SEPSIS PROTOCOL. PT'S SON, OLIVIA, CONTACTED REGARDING DETERIORATING CONDITION AND TRANSFER TO ICU.
--- NOTE | 2020-10-19 16:37 | NUR ---
REPORT CALLED TO RECEIVING RESIN SHAVER.
--- NOTE | 2020-10-19 16:54 | NUR ---
PT TRANSFERRED TO ICU ROOM 246. PT ASSISTED TO ICU BED X 4 STAFF. VS TAKEN AND CONTINUOUS CARDIAC AND SPO2 MONITORING INITIATED BY PRIMARY PERSONAL BANKING ADVISOR WHO WAS AT BEDSIDE.
[2020-10-19 17:19] LABS: BE(vivo) 6.2 mmol/L (-2 to +3); PCO2 34.3 mmHg (35.0-45.0); pH 7.545 (7.360-7.450); sO2 95.1 % (92.0-98.0)
[2020-10-19 17:29] LABS: HEMOGLOBIN 7.5 gm/dL (14.0-18.0)
[2020-10-19 17:30] LABS: HEMATOCRIT 22.7 % (42.0-52.0); MCH 30.1 pg (26.0-34.0); MCHC 32.9 g/dL (28.0-37.0); MCV 91.6 fL (80.0-100.0); RBC 2.48 mil/uL (4.50-6.00); RDW 15.8 % (10.5-14.5)
[2020-10-19 17:37] LABS: CALCIUM 7.2 mg/dL (8.5-10.1); CREATININE 2.3 mg/dL (0.7-1.3); POTASSIUM 3.7 mmol/L (3.5-5.1)
[2020-10-19 17:38] LABS: WBC 1.3 thou/uL (4.0-11.0)
--- NOTE | 2020-10-19 18:12 | NUR ---
patient transferred to ICU updated [facility].
--- NOTE | 2020-10-19 18:20 | NUR ---
PATIENT TRANSFERRED FROM CCU THIS EVENING, ALERT AND ORIENTED BUT FORGETFUL. FOLLOWS COMMANDS AND DENIES PAIN. HYPOTENSIVE AND STARTED ON LEVO GTT. STARTED ON SEPSIS PROTOCOL. ASSESSMENT DOCUMENTED. WILL CONTINUE TO MONITOR CLOSELY.
--- NOTE | 2020-10-19 22:11 | NUR ---
ASSUMED CARE AT 1899. PT NOTED TO HAVE AN AXILLARY TEMP 103.4; PLACED A RECTAL TEMP PROBE WHICH READ 103.8, ALSO LATONIA LACTIC ACID AND PROCALCITONIN LABS, GAVE TYLENOL SUPPOSITORY AND PLACED ICE PACKS. NOTIFIED DR. CASE AT 2054 OF LABS AND TEMP, RECEIVED ORDER TO START SEPSIS WEIGHT-BASED FLUID BOLUS THEN START CONTIN. FLUIDS. WILL CONTINUE TO MONITOR.
[2020-10-20] VITALS (34 sets, daily range): BP systolic 86–128; BP diastolic 39–70
[2020-10-20 04:55] LABS: HEMOGLOBIN 7.7 gm/dL (14.0-18.0)
[2020-10-20 04:56] LABS: HEMATOCRIT 23.1 % (42.0-52.0); MCH 30.5 pg (26.0-34.0); MCHC 33.1 g/dL (28.0-37.0); RBC 2.52 mil/uL (4.50-6.00); RDW 16.1 % (10.5-14.5)
[2020-10-20 05:23] LABS: WBC 1.3 thou/uL (4.0-11.0)
[2020-10-20 05:55] LABS: ALBUMIN 1.2 g/dL (3.4-5.0); CALCIUM 6.6 mg/dL (8.5-10.1); CREATININE 2.2 mg/dL (0.7-1.3); PHOSPHORUS 3.7 mg/dL (2.5-4.9); POTASSIUM 3.7 mmol/L (3.5-5.1)
--- NOTE | 2020-10-20 07:50 | NUR ---
Pt TRANSFERRED TO ICU. WILL PLACE ON HOLD AND AWAIT NEW ORDERS
--- NOTE | 2020-10-20 10:20 | HC ---
[facility] [place] [address] CONSULTATION Name: SPENCER GALLOWAY Room #: 246-P ADM IN M.R.#: [id number] Admission: 10/07/20 Attend Phys: Tressa Agustin MD Discharge: Date of : 45 Report #: [id number] THIS REPORT FOR: cc: FAM - Family physician unknown FAM - Family physician unknown Sean Loja MD ~ DOC #: [id number] Sean Loja MD DATE OF SERVICE: 10/19/2020 INFECTIOUS DISEASE CONSULTATION ATTENDING PHYSICIAN: Dr. Agustin. REASON FOR EVALUATION: Nosocomial fevers. The patient examined. HISTORY OF PRESENT ILLNESS: This is a 75-year-old gentleman with extensive medical history including underlying COPD, although he is not typically requiring supplemental oxygen, who was admitted with complaints of gastrointestinal hemorrhage. He was found to have an upper tract duodenal ulcer, significant blood loss, did require multiple transfusions. This was complicated by cardiac arrest. He did require intubation and mechanical ventilatory support for a period of time in the Intensive Care Unit. He has resolved that maintained on supplemental oxygen 1-2 liters. He subsequently developed temperature elevation to 101.6 earlier today. His mental status is somewhat diminished. He does not have a clear recollection or able to give any details. He was admitted with generalized pain and discomfort. He is concerned about aspiration. He is n.p.o. He is quite irritated. He has had cytopenias with leukopenia as well as anemia. Blood cultures have been ordered as well as urinalysis. Chest x-ray yesterday, persistent bibasilar infiltrates and effusions, slight increase in the right lower lobe to severe degree of renal insufficiency with a creatinine of 2.0 and hypoalbuminemia 1.5. Recent hepatic functions were fairly unremarkable from 10/18/2020. He was initiated on empiric therapy with Zosyn and vancomycin. ALLERGIES: None known. MEDICATIONS: Currently include Zosyn, furosemide, ipratropium, albuterol inhaler, famotidine, diclofenac, Haldol, budesonide, ____, one time dose of vancomycin. PAST MEDICAL HISTORY: As described above, history of atrial fibrillation, previous history of gastric ulcers, underlying COPD. SOCIAL HISTORY: Nonsmoker, no illicit drug use. [address] [address] CONSULTATION Name: SPENCER GALLOWAY Room #: [address] [place] [address] IN .R.#: [id number] Admission: 10/07/20 Attend Phys: Tressa Agustin MD Discharge: Date of : 45 Report #: [id number] FAMILY HISTORY: Noncontributory. REVIEW OF SYSTEMS: Otherwise, unremarkable. Notes some degree of weight loss. Appetite has been variable, significant abdominal related complaints at this point. PHYSICAL EXAMINATION: GENERAL: Appears chronically ill and undernourished, mild to moderate distress. He is somewhat irritable due to the fact that he is n.p.o. HEENT: Normocephalic. SKIN: Some contused areas of the forehead, raised areas on the maxillary sites. VITAL SIGNS: Temperature 99.5 earlier today 101.6, ____ pulse dissociation, pulse of 86, respirations 18, blood pressure 117/55. SKIN: Warm, dry, no rashes. RESPIRATORY: Lungs diminished breath sounds. Few scattered crackles. Oral exam: Poor dentition, multiple missing teeth. He is tender over the right mandible ____. NECK: Supple. HEART: Irregularly irregular. I do not appreciate a murmur. ABDOMEN: Mildly distended, somewhat firm, nontender. EXTREMITIES: Distal lower extremities with edema. RECTAL: Deferred. LABORATORY DATA: CBC: White count of ____, H and H 7.8 and 23.5, platelets of 319. Electrolytes: Sodium 142, potassium 3.7, chloride 104, bicarbonate is 32, anion gap of 6, BUN and creatinine 33 and 2.0, glucose of 98, albumin of 1.5. Urinalysis was otherwise unremarkable. Chest x-ray from yesterday, possible increase in right lower lobe, has persistent bibasilar infiltrates, small effusions, hepatic function, otherwise unremarkable. ASSESSMENT AND PLAN: Nosocomial fevers. The patient has attended hospital stay with complications. Certainly a risk for infectious complications as well suspected swallowing difficulties, possible aspiration pneumonitis. Repeat chest x-ray in the a.m. I think it is reasonable to continue empiric antimicrobial therapy. At this point, I do not see clear identification of a focus of pyogenic infection, although we will evaluate his mouth. Other considerations include noninfectious causes such as drug fever. He does apparently have a temperature pulse dissociation. He is not aware that he had high-grade fevers 101.6 axillary earlier, although he likely has a degree of encephalopathy. We will add incentive spirometry. Continue to monitor expectantly. Await biopsy results. MD SUHA Munoz/TARIQ/TIA [address] [address] CONSULTATION Name: SPENCER GALLOWAY Room #: 246-P ADM IN M.R.#: [id number] Admission: 10/07/20 Attend Phys: Tressa Agustin MD Discharge: Date of : 45 Report #: [id number] <ELECTRONICALLY SIGNED> By: Sean Loja MD 10/20/20 1020 1320 0049 Sean Loja MD /nt
--- NOTE | 2020-10-20 12:08 | NUR ---
Cont. review, discussed during los and am rounds. Elevated temp, going to have video swallow. No anticipated dc over the weekend will cont. following as needed for dc needs. [facility] was updated per cm team.
[2020-10-20 14:37] LABS: HEMATOCRIT 24.1 % (42.0-52.0)
[2020-10-21] VITALS (21 sets, daily range): BP systolic 87–114; BP diastolic 41–68
--- NOTE | 2020-10-21 03:04 | NUR ---
ASSUMED CARE AT 1900. PT W/LOW GRADE FEVERS, HIGHEST NOTED AT 100.8. TAPERING O2 DOWN, ON 0.5L; SATS WELL IN UPPER 90'S UNLESS TALKING/EATING/DRINKING THEN SATS TEND TO DROP TO UPPER 80'S. TAPERING LEVOPHED OFF OVERNIGHT. PT'S SON OLIVIA CALLED AT 0020--GAVE HIM UPDATE ON PT SINCE READMITTING TO ICU; OLIVIA STATED HE WOULD LIKELY BE UP TO VISIT ON FRIDAY. UPDATED PT ABOUT TALKING TO HIS SON, SEEMED TO IMPROVE HIS MOOD AND HE WAS ABLE TO GO TO SLEEP. WILL CONTINUE TO MONITOR.
[2020-10-21 04:59] LABS: ALBUMIN 1.1 g/dL (3.4-5.0); CALCIUM 6.4 mg/dL (8.5-10.1); CREATININE 1.9 mg/dL (0.7-1.3); PHOSPHORUS 2.5 mg/dL (2.5-4.9); POTASSIUM 3.4 mmol/L (3.5-5.1)
[2020-10-21 05:07] LABS: HEMATOCRIT 21.2 % (42.0-52.0); HEMOGLOBIN 7.2 gm/dL (14.0-18.0); MCH 30.8 pg (26.0-34.0); MCHC 33.9 g/dL (28.0-37.0); MCV 90.9 fL (80.0-100.0); RBC 2.34 mil/uL (4.50-6.00); RDW 16.5 % (10.5-14.5); WBC 2.6 thou/uL (4.0-11.0)
--- NOTE | 2020-10-21 18:05 | NUR ---
PT NOTED TO HAVE FLAT AFFECT AND VARIATIONS IN MOOD OVER THE COURSE OF THE DAY. PT W/ IMPROVED PO INTAKE, BUT NEEDS ENCOURAGEMENT AND REASSURANCES. B/P IMPROVED OVER THE COURSE OF THE DAY, URINE OUTPUT ADEQUATE AND NO C/O PAIN. PT GUARDED BUT IMPROVING SLOWLY. PROGRESSING TOWARD GOALS.
[2020-10-22] VITALS (25 sets, daily range): BP systolic 101–139; BP diastolic 55–77
--- NOTE | 2020-10-22 02:40 | NUR ---
ASSESSMENT: PT WAS AGITATED AT THE BEGINNING OF THE SHIFT. STATING THAT HE WAS READY TO LEAVE. HALDOL GIVEN WITH GOOD RESULTS. PT SLEEPING MOST OF THE SHIFT. LEVO IS CURRENTLY OFF AND VSS. BP IN THE 110'S/50'S. UO ADEQUATE PER MAC. NO BM THIS SHIFT. AFEBRILE. SR-SA WITH OCCASSIONAL PVC'S/PAC'S. REMAIN ALERT AND ORIENT TIMES 1-2, FORGETFUAL AND CONFUSED TO TIME/SITUATION. LEFT IJ PATENT WITH GOOD BLOOD RETURN, DRESSING C/D/I. TOLERATING PO INTAKE, DENIES NAUSEA, PAIN AND SOB. RA WITH COARSE/DIM LUNG SOUNDS. SLOW PROGRESS TOWARDS DC GOALS, WILL CONTINUE TO MONITOR.
[2020-10-22 05:15] LABS: HEMOGLOBIN 7.1 gm/dL (14.0-18.0); MCHC 33.8 g/dL (28.0-37.0); MCV 91.7 fL (80.0-100.0); RBC 2.29 mil/uL (4.50-6.00); RDW 16.5 % (10.5-14.5); WBC 3.4 thou/uL (4.0-11.0)
[2020-10-22 05:26] LABS: ALBUMIN 1.1 g/dL (3.4-5.0); CALCIUM 6.9 mg/dL (8.5-10.1); CREATININE 1.6 mg/dL (0.7-1.3); PHOSPHORUS 2.5 mg/dL (2.5-4.9); POTASSIUM 3.9 mmol/L (3.5-5.1)
[2020-10-22 17:48] LABS: HEMATOCRIT 25.9 % (42.0-52.0)
--- NOTE | 2020-10-22 19:16 | NUR ---
PT HAS RESTED THROUGH THE DAY IN BED. HE DID HAVE NUMEROUS LOSE STOOLS. KEPT CLEAN AND DRY. RESPIRATIONS ARE NON LABORED. RECIEVED BLOOD NO REACTIONS NOTED. WILL CONT WITH PLAN OF CARE.
[2020-10-23] VITALS (13 sets, daily range): BP systolic 127–151; BP diastolic 60–80
[2020-10-23 04:13] LABS: HEMATOCRIT 25.8 % (42.0-52.0); HEMOGLOBIN 8.7 gm/dL (14.0-18.0); MCH 30.3 pg (26.0-34.0); MCHC 33.8 g/dL (28.0-37.0); MCV 89.8 fL (80.0-100.0); RBC 2.87 mil/uL (4.50-6.00); RDW 16.5 % (10.5-14.5); WBC 3.6 thou/uL (4.0-11.0)
[2020-10-23 04:21] LABS: ALBUMIN 1.4 g/dL (3.4-5.0); CALCIUM 7.1 mg/dL (8.5-10.1); CREATININE 1.4 mg/dL (0.7-1.3); PHOSPHORUS 2.3 mg/dL (2.5-4.9); POTASSIUM 3.6 mmol/L (3.5-5.1)
--- NOTE | 2020-10-23 05:50 | NUR ---
ASSESSMENT: PT REMAINED ALERT AND ORIENT TIMES FOUR. FORGETFUL AT TIMES ABOUT SITUATION. VSS, AFEBRILE DURING THIS SHIFT. DID HAVE 2 SMALL BROWN AND LOOSE STOOLS. UO ADEQUATE AMTS, DARK YELLOW AND CLEAR. TOLERATING PO INTAKE. WAS AGITATED ABOUT NOT BEING ABLE TO GET OUT OF BED AND WALK AROUND. HALDOL GIVEN PRN FOR AGITATION. PT USED HIS HAND HELD MASSAGER (IN THE WINDOW SEAL) TO MASSAGE LOWER EXTREMITIES AND RIGHT UPPER THIGH. L IJ INTACT, PATENT AND SALINE LOCKED. SR-SA WITH PACS/PVC'S. TRANSFER ORDERS WERE EFFECTIVE ON THIS PT ON 10/22/20. RA, SPOT CHECKED FOR SATS. SLOW PROGRESS TOWARDS DC GOALS. WILL CONTINUE TO MONITOR.
--- NOTE | 2020-10-23 08:47 | NUR ---
Discussed during am round, possible be able to move out of icu today. will need to restart pt/ot to be able to send updates to [facility]. CM provided verbal updates to liaison with [facility], they will not have bed till possible on 07/26/20. Bedside nurse spoke with son jerica. will cont following as needed for dc needs.
--- NOTE | 2020-10-23 09:25 | NUR ---
ASSUMED CARE OF PT AT 0700 PA FOR CARDIOLOGY AT BEDSIDE AT 0800, NO NEW ORDERS GIVEN DR. GONZALES AT BEDSIDE AT 0900, NO NEW ORDERS GIVEN, JUST TO GET HIM OUT OF THE ICU. DR. KIRKPATRICK AND ROUNDING TEAM AT BEDSIDE AT 0850, NO NEW ORDERS GIVEN
--- NOTE | 2020-10-23 14:33 | NUR ---
At 0715, i attempted rx. Pt took maybe 3 min and stopped. At 1023, Pt refused any and all rx. Dr Fernando was notified.
--- NOTE | 2020-10-23 15:27 | NUR ---
patient has been moved from ICU to 3w RT went in room to give breathing treatment patient begun to curse at therapist stating that he did want of need treatment.
--- NOTE | 2020-10-24 02:17 | NUR ---
AWAKE THIS AM, PULLING TELE. SAT AT EDGE OF THE BED AND PULLED OUT CENTRAL LINE. ENTIRE CATHETER REMOVED. HALDOL GIVEN, HE CONTINUES TO BE VERY ANTIONETTE-TALKATIVE. HE IS VERY UNCOOPERATIVE. RESTARTED IV SITE AND CLEANED HIS SKIN AND CHANGED GOWN. RESTING WITH BED ALARM SET AT THIS TIME.
--- NOTE | 2020-10-24 03:15 | NUR ---
pt resting after getting the haldol iv. he was extremely agitated prior to dose. able to rest at this time.
[2020-10-24 03:38] VITALS: BP 135/67
[2020-10-24 05:47] LABS: ALBUMIN 1.5 g/dL (3.4-5.0); CALCIUM 7.5 mg/dL (8.5-10.1); CREATININE 1.3 mg/dL (0.7-1.3); PHOSPHORUS 2.2 mg/dL (2.5-4.9); POTASSIUM 3.7 mmol/L (3.5-5.1)
[2020-10-24 07:33] VITALS: BP 131/66
[2020-10-24 09:24] LABS: HEMATOCRIT 30.1 % (42.0-52.0); HEMOGLOBIN 9.7 gm/dL (14.0-18.0); MCH 29.4 pg (26.0-34.0); MCHC 32.4 g/dL (28.0-37.0); MCV 90.8 fL (80.0-100.0); RBC 3.31 mil/uL (4.50-6.00); RDW 16.9 % (10.5-14.5); WBC 3.8 thou/uL (4.0-11.0)
[2020-10-24 11:11] VITALS: BP 142/89
--- NOTE | 2020-10-24 14:37 | NUR ---
KARINA reviewed chart and spoke with nursing and attending physician. Pt is slowly progressing towards goals for discharge. Pt was transferred to from ICU yesterday. KARINA faxed clinical/therapy updates to [facility] and notified [facility] liaison. Pt will need repeat COVID test 48 hours prior to discharge. SW updated nursing COVID test to be completed tomorrow. KARINA is following to assist as needed with discharge planning.
[2020-10-24 15:19] VITALS: BP 127/72
[2020-10-24 20:40] VITALS: BP 131/74
[2020-10-25 03:57] LABS: ALBUMIN 1.7 g/dL (3.4-5.0); CALCIUM 7.7 mg/dL (8.5-10.1); CREATININE 1.5 mg/dL (0.7-1.3); PHOSPHORUS 2.9 mg/dL (2.5-4.9)
[2020-10-25 04:50] VITALS: BP 147/80
--- NOTE | 2020-10-25 06:38 | NUR ---
PT ANXIETY LEVEL ELEVATES AND BECOMES DIFFICULT TO MANAGE. 0.5MG HALIDOL DECREASES THE ANXIETY TO ALLOW THE PT TO RELAX. IVPB ANTIBIOTICS PER POC.
[2020-10-25 07:24] VITALS: BP 125/78
--- NOTE | 2020-10-25 13:53 | NUR ---
KARINA reviewed chart and spoke with nursing and attending physician. Pt is progressing towards goals for discharge. Pt has been accepted to [facility]. Repeat COVID test ordered today per SNF's request. KARINA met with pt and son at bedside to provide update and discuss discharge plan. Discharge to SNF is anticipated in 1-2 days. All in agreement with plan. KARINA updated [facility] SNF liaison. Will fax updates once COVID test results are available. KARINA is following to assist as needed with discharge planning.
[2020-10-25 14:59] VITALS: BP 113/71
--- NOTE | 2020-10-25 18:51 | NUR ---
CARE ASSUMED THIS AM, PT ALERT AND ORIENTED X4, FORGETFUL AT TIMES. PT ON ROOM AIR, NO SIGNS OF DISTRESS. MAC TAKEN OUT. PT USED URINAL 2X AFTERWARDS. FALL PRECAUTIONS IN PLACE. DENIES ANY NEED BRIAN.
[2020-10-25 19:35] VITALS: BP 132/79
[2020-10-26 07:51] LABS: CALCIUM 8.1 mg/dL (8.5-10.1); CREATININE 1.3 mg/dL (0.7-1.3); MAGNESIUM 1.9 mg/dL (1.8-2.4); POTASSIUM 4.4 mmol/L (3.5-5.1)
[2020-10-26 07:52] LABS: HEMATOCRIT 30.9 % (42.0-52.0); HEMOGLOBIN 10.5 gm/dL (14.0-18.0); MCH 30.5 pg (26.0-34.0); MCHC 33.9 g/dL (28.0-37.0); MCV 90.1 fL (80.0-100.0); RBC 3.43 mil/uL (4.50-6.00); RDW 16.8 % (10.5-14.5); WBC 4.1 thou/uL (4.0-11.0)
[2020-10-26 08:42] VITALS: BP 127/80
[2020-10-26 15:13] VITALS: BP 126/83
--- NOTE | 2020-10-26 15:15 | NUR ---
PT REFUSE PROTEIN SUPPLEMENTS, ENCOURAGED TO DRINK DRINK IF HE CAN. USES URINAL. COVID TEST COMPLETED BEFORE D/C TO [facility]. UP WITH ONE ASSIST. CONTINUE TO BE ON ROOM AIR. FALL PRECAUTIONS IN PLACE. DENIES ANY NEEDS BRIAN.
--- NOTE | 2020-10-26 16:09 | NUR ---
AKRINA reviewed chart and spoke with nursing and attending physician. Pt is progressing towards goals for discharge. Discharge to [facility] is anticipated for tomorrow. KARINA faxed updated clinical/therapy notes and COVID test results to [facility] for review. Notified [facility] liaison. [facility] tomorrow. KARINA spoke with pt's son, Andrea via phone to provide update and discussed discharge plan. Andrea is aware and agreeable with discharge plan. KARINA spoke with pt's friend, Krystle, via phone to provide update and requested clothes be brought to the hospital for pt's discharge. Krystle states she will bring clothes this evening. KARINA is following to assist as needed with discharge planning.
[2020-10-26 19:45] VITALS: BP 139/76
[2020-10-27 03:38] VITALS: BP 131/86
--- NOTE | 2020-10-27 05:19 | NUR ---
PT MAKING PROGRESS TOWARD GOALS. HAS BEEN COMPLIANT WITH BED ALARM AND RELIABLE WITH SITTING ON BEDSIDE TO USE URINAL. NO SIGNS OF BLEEDING.
[2020-10-27 07:16] VITALS: BP 129/69
[2020-10-27] MEDS ORDERED: PROTONIX40 M4 PO (09:41)
[2020-10-27] MEDS ORDERED: ALBUTEROL2.5 MG/31 INH (09:43)
[2020-10-27] MEDS ORDERED: SPIRIVA18 MCG INH (09:45)
--- NOTE | 2020-10-27 11:23 | NUR ---
DISCHARGE NOTE: KARINA reviewed chart and spoke with nursing and attending physician. Pt is medically stable for discharge to [facility] today. SW notified [facility] liaison, who confirms they are able to accept pt today. Wheelchair van transportation scheduled for 1400 per facility's arrangements. KARINA notified attending physician and requested d/c orders. D/c ppwk faxed to [facility]. Confirmed info was received. KARINA notified liaison that pt is in the [facility] program. KARINA spoke with pt's son, Andrea and pt's friend, Krystle, via phone to provide update and notify of discharge time. Both are aware and in agreement with plan. Nursing provided with number to call report. Chart copy requested. No additional SW needs identified at this time, but is available to assist should needs arise.
--- NOTE | 2020-10-27 14:11 | NUR ---
IV AND TELE D/C. PT PERSONAL CLOTHES PUT ON PT WITH SHOES. PT CAREGIVER SRIKANTH HERE AND HAS PT OTHER BELONGINGS. REPORT CALLED TO [facility], MYCHAL OROZCO
== END 2020-10-27 14:19 | DRG 853 ==
LOC: ER 13:26 → EROBS 15:01 → ICU 15:01 → 2N 10-14 18:07 → ICU 10-19 17:00 → 3W 10-23 12:11
PROVIDERS: Emergency Medicine; Hospitalist; Internal Medicine; Internal Medicine Gastroenterology; Internal Medicine Pulmonary Disease; Nurse Practitioner; Nurse Practitioner Family; ADMIT Internal Medicine; ATTEND Internal Medicine
PROC: 30233N1 Transfusion of Nonautologous Red Blood Cells into Peripheral Vein, Percutaneous Approach (ICD-10-PCS; principal; 2020-10-07)
PROC: 30233K1 Transfusion of Nonautologous Frozen Plasma into Peripheral Vein, Percutaneous Approach (ICD-10-PCS; 2020-10-08)
PROC: 5A1945Z Respiratory Ventilation, 24-96 Consecutive Hours (ICD-10-PCS; 2020-10-08)
PROC: 0BH17EZ Insertion of Endotracheal Airway into Trachea, Via Natural or Artificial Opening (ICD-10-PCS; 2020-10-08)
PROC: 04L33DZ Occlusion of Hepatic Artery with Intraluminal Device, Percutaneous Approach (ICD-10-PCS; 2020-10-08)
PROC: B4181ZZ Fluoroscopy of Bilateral Renal Arteries using Low Osmolar Contrast (ICD-10-PCS; 2020-10-08)
PROC: 30233R1 Transfusion of Nonautologous Platelets into Peripheral Vein, Percutaneous Approach (ICD-10-PCS; 2020-10-08)
PROC: B4151ZZ Fluoroscopy of Inferior Mesenteric Artery using Low Osmolar Contrast (ICD-10-PCS; 2020-10-08)
PROC: B4141ZZ Fluoroscopy of Superior Mesenteric Artery using Low Osmolar Contrast (ICD-10-PCS; 2020-10-08)
PROC: 02HV33Z Insertion of Infusion Device into Superior Vena Cava, Percutaneous Approach (ICD-10-PCS; 2020-10-08)
PROC: 0DD68ZX Extraction of Stomach, Via Natural or Artificial Opening Endoscopic, Diagnostic (ICD-10-PCS; 2020-10-08)
PROC: B4121ZZ Fluoroscopy of Hepatic Artery using Low Osmolar Contrast (ICD-10-PCS; 2020-10-08)
PROC: 03HY32Z Insertion of Monitoring Device into Upper Artery, Percutaneous Approach (ICD-10-PCS; 2020-10-09)
DX: A41.9 Sepsis, unspecified organism (principal); N17.0 Acute kidney failure with tubular necrosis; I46.9 Cardiac arrest, cause unspecified; K72.00 Acute and subacute hepatic failure without coma; E43 Unspecified severe protein-calorie malnutrition; J69.1 Pneumonitis due to inhalation of oils and essences; K26.4 Chronic or unspecified duodenal ulcer with hemorrhage; R57.8 Other shock; R65.21 Severe sepsis with septic shock; J80 Acute respiratory distress syndrome; I50.33 Acute on chronic diastolic (congestive) heart failure; G92 Toxic encephalopathy; D62 Acute posthemorrhagic anemia; E87.2 Acidosis; G72.81 Critical illness myopathy; I13.0 Hypertensive heart and chronic kidney disease with heart failure and stage 1 through stage 4 chronic kidney disease, or unspecified chronic kidney disease; I48.91 Unspecified atrial fibrillation; E86.0 Dehydration; N18.30 Chronic kidney disease, stage 3 unspecified; I95.9 Hypotension, unspecified; D47.3 Essential (hemorrhagic) thrombocythemia; E53.8 Deficiency of other specified B group vitamins; E83.51 Hypocalcemia; F17.210 Nicotine dependence, cigarettes, uncomplicated; J43.9 Emphysema, unspecified; R73.9 Hyperglycemia, unspecified; E83.42 Hypomagnesemia; K44.9 Diaphragmatic hernia without obstruction or gangrene; E87.6 Hypokalemia; Z66 Do not resuscitate; G47.00 Insomnia, unspecified; R53.81 Other malaise; F10.10 Alcohol abuse, uncomplicated; I73.9 Peripheral vascular disease, unspecified; D63.8 Anemia in other chronic diseases classified elsewhere; Z91.14 Patient's other noncompliance with medication regimen; Z79.82 Long term (current) use of aspirin; Z79.899 Other long term (current) drug therapy; Z90.49 Acquired absence of other specified parts of digestive tract; Z93.0 Tracheostomy status; Z99.81 Dependence on supplemental oxygen; Z79.1 Long term (current) use of non-steroidal anti-inflammatories (NSAID); Z20.822 Contact with and (suspected) exposure to COVID-19; Z68.28 Body mass index [BMI] 28.0-28.9, adult
CPT/HCPCS: 10078; 10081; 10203; 10797; 10879; 27000; 50455; 65040; 85076

== ENCOUNTER 2020-11-11 18:39 | Emergency (ER) | payer OTHER ==
[~2020-11-11] VITALS: Ht 177.8 cm; Wt 61.2 kg
--- NOTE | ~2020-11-11 | EMS ---
[address] [address] EMS Patient Care Report Name: SPENCER GALLOWAY Room #: DEP MARIA LUISA Burris#: [id number] Admission: 11/11/20 Attend Phys: Discharge: 11/11/20 Date of : 45 Report #: [id number] THIS REPORT FOR: //name// Report Transmitted: 11/11/2020 21:37 EMS Care Summary [place], [place]/[facility] Incident [id number] @ 11/11/2020 17:59 Incident Location [address] [place] [address] Patient SPENCER GALLOWAY Male, 75 Years 1945 Patient Address [address] [place] [address] Patient History Cardiac Arrest,Chronic Obstructive Pulmonary Disease (COPD),Cardiac Condition - Other,Gastrointesinal Hemorrhage, Patient Allergies No known allergies, Patient Medications Unknown, None Reported, Chief Complaint CARDIAC ARREST Disposition Transported [place] Dispatch Reason Cardiac Arrest/ Transported To [facility] Narrative M36 dispatched on an unconscious. M36 notified by dispatch [place] [address] EMS Patient Care Report Name: SPENCER GALLOWAY Room #: DEP ER Stefany.#: [id number] Admission: 11/11/20 Attend Phys: Discharge: 11/11/20 Date of : 45 Report #: [id number] cardiac arrest. M36 arrived to find P37 at PT side. PT found supine on floor inside of home. PT pulseless and apneic. 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 P37 stated no shocks advised by AED. Calling democrat stated PT "checked out of a senior care facility a couple of days ago against medical advice." CP stated PT "was in the hospital for a few weeks in October." CP stated PT was "on the toilet when he started getting woozy and passed out." PT treated per cardiac arrest protocol. Mechanical CPR initiated by M36. PT intubated and ETCO2 readings increased. PT found to be in ROSC. Mechanical CPR discontinued. PT carried on kinjal blemish remover by EMS and fire. PT secured to stretcher with seat belts. EMS attempted to obtain set of vitals during transport, proximity and short transport time hindered efforts. PT report given. PT being ventilated by BVM and strong carotid pulse upon arrival to [facility]. PT care and belongings transferred to ER staff after short delay to remove equipment at [facility]. M36 placed back in service. Initial Vitals @18:28P: 129,R: 10,EtCO2: 13, @18:25P: 163,EtCO2: 5, @18:21P: 25, @18:25P: 162, @18:15P: 163, @18:31P: 122,R: 17,EtCO2: 13,SpO2: 58, @18:15P: 159, @18:13P: 159, @18:11P: 159, @18:18P: 164,EtCO2: 0, @18:19P: 158, @18:12P: 161, @18:10P: 156, @18:17P: 156,EtCO2: 0, @18:19P: 197,EtCO2: 0, @18:23P: 158,EtCO2: 6, @18:34P: 110,R: 5,EtCO2: 16,SpO2: 62, @18:07P: 0,R: 0,Pain: 0/10,GCS: 3,SpO2: 0,Revised Trauma: 0, @18:35P: 109,R: 6,Pain: 0/10,GCS: 3,EtCO2: 19,SpO2: 58, @18:29P: 165,R: 10,Pain: 0/10,GCS: 3,EtCO2: 14, Assessments @18:05MENTAL:Unresponsive,SKIN:Cold,Pale,HEENT:Neck/Airway: Compromised,LUNG SOUNDS:ABDOMEN:PELVIS//GI:EXTREMITIES:PULSE:Carotid: Absent,NEURO:@18:34MENTAL:Unresponsive,SKIN:Pale,Cold,HEENT:Neck/Airway: Compromised,Neck/Airway: Other,LUNG SOUNDS:ABDOMEN:PELVIS//GI:EXTREMITIES:PULSE:Carotid: 3+ Bounding,Radial: Absent,NEURO: [address] [address] EMS Patient Care Report Name: SPENCER GALLOWAY Room #: DEP [place]#: [id number] Admission: 11/11/20 Attend Phys: Discharge: 11/11/20 Date of : 45 Report #: [id number] Impression Cardiac arrest Procedures @18:25Epinephrine 1:10 - 1 Milligrams (mg) - Intraosseous (IO)Response: Unchanged@18:19Epinephrine 1:10 - 1 Milligrams (mg) - Intraosseous (IO)Response: Unchanged@18:28Epinephrine 1:10 - 1 Milligrams (mg) - Intraosseous (IO)Response: Improved@18:15Epinephrine 1:10 - 1 Milligrams (mg) - Intraosseous (IO)Response: Unchanged@18:3412-Lead ECGResponse: UnchangedFailed@PTAResponse: UnchangedSucceeded@18:12Epinephrine 1:10 - 1 Milligrams (mg) - Intraosseous (IO)Response: Unchanged@18:07Normal Saline (.9% NaCl) 20cc (EZ-IO (Blue 25mm)) Site: SJ-Tzfoecx-GaiyAtutpvni: UnchangedSucceeded@18:05ALS AssessmentResponse: UnchangedSucceeded@18:08iGEL Complications: None,Response: UnchangedSucceeded@18:27Orotracheal Intubation Complications: None,Response: ImprovedSucceeded@18:08Oxygen FlowRate: 15 Device: Bag Valve Mask (BVM) Response: UnchangedSucceeded@18:28Suction Response: UnchangedSucceeded@18:303-Lead ECGResponse: ImprovedSucceeded@18:11Response: UnchangedSucceeded Timeline [employer] 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,Response: UnchangedSucceeded, 17:57,Call Received 17:57,Dispatch Notified 17:59,Dispatched 18:00,En Route 18:04,On Scene 18:05,At Patient 18:05,ALS Assessment,Response: UnchangedSucceeded, 18:07,BP: 0/ M,PULSE: 0,RR: 0 R,SPO2: 0 Ox,ETCO2: ,BG: ,PAIN: 0,GCS: 3, 18:07,Normal Saline (.9% NaCl) 20cc EZ-IO (Blue 25mm) Site: YO-Vhcaqpm-Xnlr,Response: UnchangedSucceeded, 18:08,Oxygen FlowRate: 15 Device: Bag Valve Mask (BVM) Response: UnchangedSucceeded, 18:08,iGEL Complications: None,,Response: UnchangedSucceeded, 18:10,BP: / M,PULSE: 156,RR: R,SPO2: Ox,ETCO2: ,BG: ,PAIN: ,GCS: , 18:11,Response: UnchangedSucceeded, 18:11,BP: / M,PULSE: 159,RR: R,SPO2: Ox,ETCO2: ,BG: ,PAIN: ,GCS: , 18:12,Epinephrine 1:10 - 1 Milligrams (mg) - Intraosseous (IO),Response: Unchanged 18:12,BP: / M,PULSE: 161,RR: R,SPO2: Ox,ETCO2: ,BG: ,PAIN: ,GCS: , 18:13,BP: / M,PULSE: 159,RR: R,SPO2: Ox,ETCO2: ,BG: ,PAIN: ,GCS: , 18:15,Epinephrine 1:10 - 1 Milligrams (mg) - Intraosseous (IO),Response: Unchanged 18:15,BP: / M,PULSE: 159,RR: R,SPO2: Ox,ETCO2: ,BG: ,PAIN: ,GCS: , 18:15,BP: / M,PULSE: 163,RR: R,SPO2: Ox,ETCO2: ,BG: ,PAIN: ,GCS: , [facility] [address] [place] [address] EMS Patient Care Report Name: SPENCER GALLOWAY Room #: DEP [place]#: [id number] Admission: 11/11/20 Attend Phys: Discharge: 11/11/20 Date of : 45 Report #: [id number] 18:17,BP: / M,PULSE: 156,RR: R,SPO2: Ox,ETCO2: 0 ,BG: ,PAIN: ,GCS: , 18:18,BP: / M,PULSE: 164,RR: R,SPO2: Ox,ETCO2: 0 ,BG: ,PAIN: ,GCS: , 18:19,Epinephrine 1:10 - 1 Milligrams (mg) - Intraosseous (IO),Response: Unchanged 18:19,BP: / M,PULSE: 197,RR: R,SPO2: Ox,ETCO2: 0 ,BG: ,PAIN: ,GCS: , 18:19,BP: / M,PULSE: 158,RR: R,SPO2: Ox,ETCO2: ,BG: ,PAIN: ,GCS: , 18:21,BP: / M,PULSE: 25,RR: R,SPO2: Ox,ETCO2: ,BG: ,PAIN: ,GCS: , 18:23,BP: / M,PULSE: 158,RR: R,SPO2: Ox,ETCO2: 6 ,BG: ,PAIN: ,GCS: , 18:25,Epinephrine 1:10 - 1 Milligrams (mg) - Intraosseous (IO),Response: Unchanged 18:25,BP: / M,PULSE: 163,RR: R,SPO2: Ox,ETCO2: 5 ,BG: ,PAIN: ,GCS: , 18:25,BP: / M,PULSE: 162,RR: R,SPO2: Ox,ETCO2: ,BG: ,PAIN: ,GCS: , 18:27,Orotracheal Intubation Complications: None,,Response: ImprovedSucceeded, 18:28,Epinephrine 1:10 - 1 Milligrams (mg) - Intraosseous (IO),Response: Improved 18:28,BP: / M,PULSE: 129,RR: 10 R,SPO2: Ox,ETCO2: 13 ,BG: ,PAIN: ,GCS: , 18:28,Suction Response: UnchangedSucceeded, 18:29,BP: / M,PULSE: 165,RR: 10 R,SPO2: Ox,ETCO2: 14 ,BG: ,PAIN: 0,GCS: 3, 18:30,3-Lead ECG,Response: ImprovedSucceeded, 18:31,BP: / M,PULSE: 122,RR: 17 R,SPO2: 58 Ox,ETCO2: 13 ,BG: ,PAIN: ,GCS: , 18:32,Depart Scene 18:34,12-Lead ECG,Response: UnchangedFailed, 18:34,BP: / M,PULSE: 110,RR: 5 R,SPO2: 62 Ox,ETCO2: 16 ,BG: ,PAIN: ,GCS: , 18:35,BP: / M,PULSE: 109,RR: 6 R,SPO2: 58 Ox,ETCO2: 19 ,BG: ,PAIN: 0,GCS: 3, 18:35,At Destination 19:05,Call Closed Disclaimer v1.1 Copyright 2020 [employer] This EMS Care Summary contains data elements from the applicable legal record (which may be displayed differently). It is designed to provide pertinent information for the following purposes: continuity of care, clinical quality, and state data reporting. The complete legal record is available to ED staff and administrators of the receiving hospital in [employer] Patient Tracker. All data is provided "as is."
[~2020-11-11 18:39] MED LIST changes: +ALBUTEROL2.5 MG/31 INH; +PEPCID20 MG PO; +PROTONIX40 M4 PO; +PULMICORT0.5 MG/21 INH; +SPIRIVA18 MCG INH
--- NOTE | 2020-11-13 07:49 | EKG ---
[place] [address] [facility] [place] [address] ELECTROCARDIOGRAM REPORT Name: MARIELOSTEREMARIA LUISASPENCER Room #: DEP [facility]#: [id number] Admission: 11/11/20 Attend Phys: Discharge: 11/11/20 Date of : 45 Report #: [id number] [facility] ED Test Date: 2020-11-11 Test Time: 18:43:23 Pat Name: SPENCER GALLOWAY Department: Room: Gender: M Provider Engagement Executive: BOUBACAR BARBOSA : 1945 Requested By: Tahir Chavez Order Number: [id number] MD: Senthil Espinosa Measurements Intervals [place] Rate: 88 P: 106 NH: 244 QRS: 102 QRSD: 153 T: -74 QT: 389 QTc: 471 Interpretive Statements Sinus rhythm Prolonged NH interval Right bundle branch block Probable anteroseptal infarct, recent Compared to ECG 10/09/2020 09:22:10 First degree AV block now present Electronically Signed On 11-13-2020 7:49:42 CDT by Senthil Espinosa [email or web address] <ELECTRONICALLY SIGNED> By: Senthil Espinosa MD, [facility] 11/13/20 [id number] Senthil Espinosa MD, [facility] /EPI
== END 2020-11-11 19:08 ==
LOC: ER 18:39
DX: I46.9 Cardiac arrest, cause unspecified (principal); I48.91 Unspecified atrial fibrillation; Z79.899 Other long term (current) drug therapy; Z90.49 Acquired absence of other specified parts of digestive tract